=== PATIENT | female | born 1995 | race Caucasian/White ===

== ENCOUNTER → 2020-10-30 18:04 | Outpatient (CLI) | payer MEDICAID, SELFPAY ==
[2020-10-30 18:18] LABS: Basophils # 0.1 K/mm3 (0-0.2); Basophils % 0.7 % (0.1-2.0); Eosinophils # 0.2 K/mm3 (0.0-0.4); Eosinophils % 1.7 % (0.1-12.0); Hematocrit 41.2 % (37.0-47.0); Lymphocytes # 2.8 K/mm3 (0.7-4.5); Lymphocytes % 28.6 % (10-50); Mean Corpuscular HGB Conc 33.9 g/dL (31.8-35.4); Mean Corpuscular Hemoglobin 27.7 pg (27.0-31.2); Mean Corpuscular Volume 81.5 fl (81-99); Mean Platelet Volume 9.6 fl (7.4-10.4); Monocytes # 0.7 K/mm3 (0.1-1.0); Monocytes % 6.6 % (1.7-9.3); Neutrophils # 6.1 K/mm3 (1.8-7.8); Neutrophils % 62.5 % (37.0-80.0); Platelet Count 285 K/mm3 (142-424); Red Blood Count 5.06 M/mm3 (4.20-5.40); Red Cell Distribution Width 14.3 % (11.5-17.5); White Blood Count 9.8 K/mm3 (4.8-10.8)
== END ==
PROVIDERS: Visit Provider Obstetrics & Gynecology
DX: N92.6 Irregular menstruation, unspecified (principal)
CPT/HCPCS: 36415; 85025

== ENCOUNTER 2021-06-21 02:26 | Emergency (ER) | payer BC, MEDICAID, SELFPAY ==
[2021-06-21 02:35] VITALS: BP 203/106; PULSE 120; O2SAT 99
[2021-06-21 02:38] VITALS: BP 203/106; PULSE 120; RESP 18; TEMP 36.6; O2SAT 99; BMI 44.9
--- NOTE | 2021-06-21 02:45 | CT_ITS ---
PROCEDURE INFORMATION: Exam: CT Abdomen And Pelvis Without Contrast Exam date and time: 06/21/2021 3:22 AM Age: 26 years old Clinical indication: Abdominal pain; Flank; Right; Additional info: Back pain TECHNIQUE: Imaging protocol: Computed tomography of the abdomen and pelvis without contrast. Radiation optimization: All CT scans at this facility use at least one of these dose optimization techniques: automated exposure control; mA and/or kV adjustment per patient size (includes targeted exams where dose is matched to clinical indication); or iterative reconstruction. COMPARISON: No relevant prior studies available. FINDINGS: Liver: The liver is mildly low in density. Gallbladder and bile ducts: Normal. No calcified stones. No ductal dilation. Pancreas: Normal. No ductal dilation. Spleen: Normal. No splenomegaly. Adrenal glands: Normal. No mass. Kidneys and ureters: Normal. No hydronephrosis. Stomach and bowel: Unremarkable. No obstruction. No mucosal thickening. Appendix: The appendix is normal. Intraperitoneal space: Unremarkable. No free air. No significant fluid collection. Vasculature: Unremarkable. No abdominal aortic aneurysm. Lymph nodes: A cluster of small minimally prominent lymph nodes are seen in the right lower quadrant mesentery. Urinary bladder: Unremarkable as visualized. Reproductive: Unremarkable as visualized. Bones/joints: Unremarkable. No acute fracture. Soft tissues: Unremarkable. IMPRESSION: 1. Cluster of mildly prominent right lower quadrant mesenteric lymph nodes consistent with probable mesenteric lymphadenitis. No evidence of appendicitis. 2. Mild diffuse hepatic steatosis.
[2021-06-21 02:55] LABS: Microscopic, Urine URINE MICROSCOPIC (MICROSCOPIC)
[2021-06-21 02:57] LABS: Basophils # 0.2 K/mm3 (0-0.2); Basophils % 1.3 % (0.1-2.0); Eosinophils # 0.2 K/mm3 (0.0-0.4); Eosinophils % 1.1 % (0.1-12.0); Hemoglobin 13.9 g/dL (12.2-16.2); Lymphocytes % 22.1 % (10-50); Mean Corpuscular Hemoglobin 26.9 pg (27.0-31.2); Mean Corpuscular Volume 81.5 fl (81-99); Mean Platelet Volume 10.6 fl (7.4-10.4); Monocytes # 0.7 K/mm3 (0.1-1.0); Monocytes % 5.3 % (1.7-9.3); Neutrophils # 9.7 K/mm3 (1.8-7.8); Neutrophils % 70.2 % (37.0-80.0); Platelet Count 349 K/mm3 (142-424); Red Blood Count 5.16 M/mm3 (4.20-5.40); Red Cell Distribution Width 16.2 % (11.5-17.5); White Blood Count 13.8 K/mm3 (4.8-10.8)
[2021-06-21 03:01] VITALS: BP 134/68; PULSE 50; O2SAT 95
[2021-06-21 03:13] LABS: Alanine Aminotransferase 37 U/L (12-78); Albumin Level 4.9 g/dl (3.5-5.0); Albumin/Globulin Ratio 1.3 (1.1-1.8); Alkaline Phosphatase 97 U/L (38-126); Amylase 60 U/L (30-110); Aspartate Amino Transferase 32 U/L (14-36); Bilirubin,Total 0.4 mg/dl (0.2-1.3); Blood Urea Nitrogen 16 mg/dl (7-17); Calcium 9.4 mg/dl (8.4-10.2); Carbon Dioxide 23 mmol/L (22.0-30.0); Chloride 106 mmol/L (98-107); Creatinine Clearance Estimated 125 mL/min (50-200); Estimated Glomerular Filt Rate 152 ml/min (>60); GFR (African American) 183 ML/MIN (>60); Globulin 3.7 g/dL (1.3-3.2); Glucose 128 mg/dl (74-100); Sodium 140 mmol/L (136-145); Total Protein,Serum 8.6 g/dl (6.3-8.2)
[2021-06-21 03:18] LABS: Appearance,Urine CLEAR (Clear); Bilirubin,Urine Negative (Negative); Blood, Urine 3+ (Negative); Color,Urine YELLOW (Yellow); Glucose,Urine (UA) Negative (Negative); Ketones,Urine Negative (Negative); Leukocyte Esterase,Urine Negative (Negative); Nitrate,Urine Negative (Negative); Protein,Urine Negative (Negative); Specific Gravity, Urine >= 1.030 (1.005-1.030); Urobilinogen,Urine 0.2 EU/dl (0.2)
[2021-06-21 03:19] LABS: C-Reactive Protein 4.4 mg/L (0-4)
[2021-06-21 03:21] LABS: Urine Pregnancy, HCG Qual. Negative (Negative)
[2021-06-21 03:31] VITALS: BP 170/77; PULSE 90; O2SAT 100
[2021-06-21 03:32] LABS: Procalcitonin 0.035 ng/mL (0.0-2.0)
--- NOTE | 2021-06-21 03:44 | HMH.EDGENADL ---
ED Disposition Clinical Impression: Flank pain, acute Hematuria Qualifiers: Hematuria type: unspecified type Qualified Code(s): R31.9 - Hematuria, unspecified Disposition: Home, Self-Care Condition on Discharge: Good Instructions: DI for Flank Pain Additional Instructions: fluids and call pcp for follow up Referrals: Provider,Referral, MD [Primary Care Provider] - - Critical Care Critical Care Time: No Attestation: On 06/21/21, the high probability of a clinically significant, sudden or life threatening deterioration of the following system(s) required my full and direct attention, intervention and personal management. The time I documented below is in addition to time spent performing reported procedures but includes the following listed in this critical care notation. Medical Decision Making - Medical Records Medical records reviewed: Yes: I reviewed the patient's medical records. - Yvan Inquiry Pt receiving controlled substance: No Vital Signs: 06/21/21 02:35 06/21/21 02:38 06/21/21 03:01 Temperature 97.9 F Temperature Source Oral Pulse Rate 120 H 50 L Pulse Rate [Apical] 120 H Respiratory Rate 18 Blood Pressure 203/106 H 134/68 Blood Pressure [Right Arm] 203/106 H Blood Pressure Mean [Right Arm] 138 Blood Pressure Source [Right Arm] Automatic Cuff Blood Pressure Position [Right Arm] Sitting 02 Sat by Pulse Oximetry 99 99 95 Oxygen Delivery Method Room Air Room Air Room Air 06/21/21 03:31 Temperature Temperature Source Pulse Rate 90 Pulse Rate [Apical] Respiratory Rate Blood Pressure 170/77 H Blood Pressure [Right Arm] Blood Pressure Mean [Right Arm] Blood Pressure Source [Right Arm] Blood Pressure Position [Right Arm] 02 Sat by Pulse Oximetry 100 Oxygen Delivery Method - Lab Data Lab results reviewed: Yes: I reviewed the patient's lab results. Lab Results 06/21/21 02:37: Urine Color Yellow, Urine Appearance Clear, Urine pH 6.0, Ur Specific [place] >= 1.030, Urine Protein Negative, Urine Glucose (UA) Negative, Urine Ketones Negative, Urine Blood 3+, Urine Nitrate Negative, Urine Bilirubin Negative, Urine Urobilinogen 0.2, Ur Leukocyte Esterase Negative, Urine RBC 5-10, Ur Squamous Epith Cells 10-20 06/21/21 02:37: WBC 13.8 H, RBC 5.16, Hgb 13.9, Hct 42.0, MCV 81.5, MCH 26.9 L, MCHC 33.0, RDW 16.2, Plt Count 349, MPV 10.6 H, Neut % (Auto) 70.2, Lymph % (Auto) 22.1, [place] % (Auto) 5.3, Eos % (Auto) 1.1, Baso % (Auto) 1.3, Neut # (Auto) 9.7 H, Lymph # (Auto) 3.0, [place] # (Auto) 0.7, Eos # (Auto) 0.2, Baso # (Auto) 0.2, ESR 21 H 06/21/21 02:37: Sodium 140, Potassium 4.0, Chloride 106, Carbon Dioxide 23, Anion Gap 15.0, BUN 16, Creatinine 0.50 L, Estimated Creat Clear 125, Estimated GFR 152, Est GFR ( Amer) 183, Glucose 128 H, Calcium 9.4, Total Bilirubin 0.4, AST 32, ALT 37, Alkaline Phosphatase 97, C-Reactive Protein 4.4 H, Total Protein 8.6 H, Albumin 4.9, Globulin 3.7 H, Albumin/Globulin Ratio 1.3, Amylase 60, Procalcitonin 0.035 06/21/21 02:37: Urine HCG, Qual Negative Result diagrams: 06/21/21 02:37 06/21/21 02:37 Orders (Tests/Meds): ED MEDICATIONS Generic Name Dose Route Start Last Admin Trade Name Freq PRN Reason Stop Dose Admin Sodium Chloride 1,000 mls @ 999 mls/hr 06/21/21 02:45 06/21/21 03:07 Sod Chlor 0.9% 1000ml Bag IV 06/21/21 03:45 999 mls/hr .Q1H1M ADELE Administration Discontinued Medications Generic Name Dose Route Start Last Admin Trade Name Freq PRN Reason Stop Dose Admin Ketorolac Tromethamine 30 mg 06/21/21 02:44 06/21/21 03:07 Ketorolac 30mg/Ml Vial IV 06/21/21 02:45 30 mg ONCE ONE Administration Ondansetron HCl 4 mg 06/21/21 02:44 06/21/21 03:07 Ondansetron 4mg/2ml Vial IV 06/21/21 02:45 4 mg ONCE ONE Administration - CT Data CT Scan: Abdomen, Pelvis Time Received: 04:[address] Reviewed: Yes: I have viewed the radiologist's interpretation Preliminary Findings: Abnormal Medi
[2021-06-21 03:52] LABS: Erythrocyte Sedimentation Rate 21 mm/hr (0-20)
[2021-06-21 04:36] VITALS: BP 144/88; PULSE 83; RESP 18; TEMP 36.8; O2SAT 99
[2021-06-21 04:42] VITALS: BP 144/88; PULSE 82; RESP 18; TEMP 36.7; O2SAT 99
== END 2021-06-21 04:51 | disposition home or self-care (01) ==
PROVIDERS: Emergency Provider Emergency Medicine
DX: R31.9 Hematuria, unspecified (principal); R10.31 Right lower quadrant pain
CPT/HCPCS: 74176; 80053; 81001; 81025; 82150; 84145; 85025; 85651; 86140; 96365; 96375; 99284; J2405

== ENCOUNTER → 2021-07-02 16:22 | Outpatient (CLI) | payer BC, MEDICAID, SELFPAY ==
[2021-07-02 17:01] LABS: Basophils # 0.2 K/mm3 (0-0.2); Basophils % 1.7 % (0.1-2.0); Eosinophils # 0.2 K/mm3 (0.0-0.4); Eosinophils % 1.4 % (0.1-12.0); Hematocrit 42.4 % (37.0-47.0); Hemoglobin 14.4 g/dL (12.2-16.2); Lymphocytes # 2.7 K/mm3 (0.7-4.5); Lymphocytes % 23.8 % (10-50); Mean Corpuscular Hemoglobin 27.3 pg (27.0-31.2); Mean Corpuscular Volume 80.4 fl (81-99); Mean Platelet Volume 9.6 fl (7.4-10.4); Monocytes # 0.5 K/mm3 (0.1-1.0); Monocytes % 4.8 % (1.7-9.3); Neutrophils # 7.7 K/mm3 (1.8-7.8); Neutrophils % 68.4 % (37.0-80.0); Platelet Count 364 K/mm3 (142-424); Red Blood Count 5.28 M/mm3 (4.20-5.40); Red Cell Distribution Width 15.8 % (11.5-17.5); White Blood Count 11.2 K/mm3 (4.8-10.8)
[2021-07-02 17:37] LABS: Alanine Aminotransferase 40 U/L (12-78); Albumin Level 4.7 g/dl (3.5-5.0); Albumin/Globulin Ratio 1.6 (1.1-1.8); Alkaline Phosphatase 93 U/L (38-126); Anion Gap 16.1 mEq/L (5-15); Aspartate Amino Transferase 36 U/L (14-36); Bilirubin,Total 0.5 mg/dl (0.2-1.3); Blood Urea Nitrogen 10 mg/dl (7-17); Calcium 9.4 mg/dl (8.4-10.2); Carbon Dioxide 21 mmol/L (22.0-30.0); Chloride 105 mmol/L (98-107); Chol/HDL Ratio 6.8 (1-3.5); Cholesterol 211 mg/dl (140-200); Estimated Glomerular Filt Rate 196 ml/min (>60); GFR (African American) 237 ML/MIN (>60); Glucose 89 mg/dl (74-100); HDL Cholesterol 31 mg/dl (40-60); Potassium 4.1 mmoL/L (3.5-5.1); Sodium 138 mmol/L (136-145); Total Protein,Serum 7.7 g/dl (6.3-8.2); Triglycerides 145 mg/dl (30-150); VLDL Cholesterol 29 mg/dL (0-40)
[2021-07-02 18:08] LABS: Thyroid Stimulating Hormone 2.98 uIU/mL (0.465-4.68)
[2021-07-02 18:26] LABS: Vitamin B12 492 pg/mL (239-931)
[2021-07-02 18:50] LABS: 25-OH Vitamin D, Total 19.8 ng/mL (30-100)
== END ==
PROVIDERS: PCP Physician Assistant; Visit Provider Physician Assistant
DX: Z00.00 Encounter for general adult medical examination without abnormal findings (principal); R73.09 Other abnormal glucose
CPT/HCPCS: 36415; 80053; 80061; 82306; 82607; 83036; 84443; 85025

== ENCOUNTER 2021-08-18 19:03 | Emergency (ER) | payer BC, MEDICAID, SELFPAY ==
[2021-08-18 19:04] VITALS: BP 146/62; PULSE 122; RESP 28; TEMP 36.9; O2SAT 100; BMI 42.0
[2021-08-18 19:48] LABS: Microscopic, Urine URINE MICROSCOPIC (MICROSCOPIC)
[2021-08-18 19:48] LABS: Basophils # 0.1 K/mm3 (0-0.2); Basophils % 1.1 % (0.1-2.0); Eosinophils # 0.2 K/mm3 (0.0-0.4); Eosinophils % 1.9 % (0.1-12.0); Hematocrit 41.2 % (37.0-47.0); Hemoglobin 14.3 g/dL (12.2-16.2); Lymphocytes # 0.8 K/mm3 (0.7-4.5); Lymphocytes % 7.4 % (10-50); Mean Corpuscular HGB Conc 34.6 g/dL (31.8-35.4); Mean Corpuscular Hemoglobin 27.8 pg (27.0-31.2); Mean Corpuscular Volume 80.4 fl (81-99); Mean Platelet Volume 9.9 fl (7.4-10.4); Monocytes # 0.7 K/mm3 (0.1-1.0); Neutrophils # 9.2 K/mm3 (1.8-7.8); Neutrophils % 83.6 % (37.0-80.0); Platelet Count 334 K/mm3 (142-424); Red Blood Count 5.13 M/mm3 (4.20-5.40); Red Cell Distribution Width 15.1 % (11.5-17.5); White Blood Count 11.1 K/mm3 (4.8-10.8)
[2021-08-18 20:00] VITALS: BP 96/45; PULSE 62; RESP 18; TEMP 36.9; O2SAT 100
[2021-08-18 20:11] LABS: Appearance,Urine CLEAR (Clear); Bilirubin,Urine Negative (Negative); Blood, Urine Negative (Negative); Color,Urine YELLOW (Yellow); Glucose,Urine (UA) Negative (Negative); Ketones,Urine Negative (Negative); Leukocyte Esterase,Urine Negative (Negative); Nitrate,Urine Negative (Negative); PH,Urine 8.5 (5.0-8.5); Protein,Urine Negative (Negative); Specific Gravity, Urine 1.015 (1.005-1.030); Urobilinogen,Urine 0.2 EU/dl (0.2)
[2021-08-18 20:12] LABS: Urine Pregnancy, HCG Qual. Negative (Negative)
--- NOTE | 2021-08-18 20:30 | HMH.EDSYNC ---
ED Disposition Clinical Impression: Vasovagal syncope Disposition: Home, Self-Care Condition on Discharge: Good Instructions: DI for Syncope in Adults (Fainting) Additional Instructions: fluids and call pcp in am Referrals: Taylor Olson PA [Primary Care Provider] - - Critical Care Critical Care Time: No Attestation: On 08/18/21, the high probability of a clinically significant, sudden or life threatening deterioration of the following system(s) required my full and direct attention, intervention and personal management. The time I documented below is in addition to time spent performing reported procedures but includes the following listed in this critical care notation. Medical Decision Making - Medical Records Medical records reviewed: Yes: I reviewed the patient's medical records. - Yvan Inquiry Pt receiving controlled substance: No Vital Signs: 08/18/21 19:04 Temperature 98.5 F Temperature Source Oral Pulse Rate [Left Radial] 122 H Respiratory Rate 28 H Blood Pressure [Right Arm] 146/62 H Blood Pressure Mean [Right Arm] 90 Blood Pressure Source [Right Arm] Automatic Cuff Blood Pressure Position [Right Arm] Sitting 02 Sat by Pulse Oximetry 100 Oxygen Delivery Method Room Air - Lab Data Lab results reviewed: Yes: I reviewed the patient's lab results. Lab Results 08/18/21 19:32: WBC 11.1 H, RBC 5.13, Hgb 14.3, Hct 41.2, MCV 80.4 L, MCH 27.8, MCHC 34.6, RDW 15.1, Plt Count 334, MPV 9.9, Neut % (Auto) 83.6 H, Lymph % (Auto) 7.4 L, [place] % (Auto) 6.0, Eos % (Auto) 1.9, Baso % (Auto) 1.1, Neut # (Auto) 9.2 H, Lymph # (Auto) 0.8, [place] # (Auto) 0.7, Eos # (Auto) 0.2, Baso # (Auto) 0.1 08/18/21 19:32: Sodium 137, Potassium 3.7, Chloride 102, Carbon Dioxide 21 L, Anion Gap 17.7 H, BUN 12, Creatinine 0.60, Estimated Creat Clear 104, Estimated GFR 123, Est GFR ( Amer) 149, Glucose 109 H, Calcium 10.1, Total Bilirubin 0.6, AST 43 H, ALT 45, Alkaline Phosphatase 84, Total Protein 8.2, Albumin 4.7, Globulin 3.5 H, Albumin/Globulin Ratio 1.3 08/18/21 19:40: Urine Color Yellow, Urine Appearance Clear, Urine pH 8.5, Ur Specific [place] 1.015, Urine Protein Negative, Urine Glucose (UA) Negative, Urine Ketones Negative, Urine Blood Negative, Urine Nitrate Negative, Urine Bilirubin Negative, Urine Urobilinogen 0.2, Ur Leukocyte Esterase Negative, Urine WBC 3-5, Ur Squamous Epith Cells 10-20, Urine Bacteria 1+ 08/18/21 19:40: Urine HCG, Qual Negative Result diagrams: 08/18/21 19:32 08/18/21 19:32 Orders (Tests/Meds): ED MEDICATIONS Generic Name Dose Route Start Last Admin Trade Name Freq PRN Reason Stop Dose Admin Sodium Chloride 1,000 mls @ 999 mls/hr 08/18/21 19:45 08/18/21 19:42 Sod Chlor 0.9% 1000ml Bag IV 08/18/21 20:45 999 mls/hr .Q1H1M ADELE Administration Discontinued Medications Generic Name Dose Route Start Last Admin Trade Name Freq PRN Reason Stop Dose Admin Acetaminophen 1,000 mg 08/18/21 19:47 08/18/21 19:48 Acetaminophen 500mg Tab PO 08/18/21 19:48 1,000 mg ONCE ONE Administration Medical Decision Narrative: stable exam and vital sx and labs ok - prob vasovagal episode - have pt call pcp in am Syncope HPI - General Chief Complaint: Syncope Stated Complaint: sob nUMBNESS lEFT ARM Time Seen by Provider: 08/18/21 20:31 Mode of Arrival: Ambulatory Source of Information: Patient, Medical Record Limitations: No Limitations Description of Symptoms (Recalled from ER Triage Doc. by RN): PT HAS NOT BEEN ABLE TO EAT OR DRINK AT WORK TODAY. HAD NAUSEA THEN A SYNCOPAL EPISODE. PT NOW HAVING AN ANXIETY ATTACK. - History of Present Illness HPI narrative: nausea and episode of vomiting and then syncopal episode and lt upper ext tingling - now at baseline MD complaint: loss of consciousness Onset (ago): minute(s) Prodromal symptoms: nausea/vomiting Witnessed: yes - by bystander Context: standing up Injuries sustained associated with event: none
[2021-08-18 20:39] LABS: Bacteria,Urine 1+ /lpf
[2021-08-18 20:41] LABS: Chloride 102 mmol/L (98-107); Potassium 3.7 mmoL/L (3.5-5.1); Sodium 137 mmol/L (136-145)
[2021-08-18 20:44] LABS: Alanine Aminotransferase 45 U/L (12-78); Albumin Level 4.7 g/dl (3.5-5.0); Albumin/Globulin Ratio 1.3 (1.1-1.8); Alkaline Phosphatase 84 U/L (38-126); Anion Gap 17.7 mEq/L (5-15); Aspartate Amino Transferase 43 U/L (14-36); Bilirubin,Total 0.6 mg/dl (0.2-1.3); Blood Urea Nitrogen 12 mg/dl (7-17); Carbon Dioxide 21 mmol/L (22.0-30.0); Creatinine Clearance Estimated 104 mL/min (50-200); Estimated Glomerular Filt Rate 123 ml/min (>60); GFR (African American) 149 ML/MIN (>60); Globulin 3.5 g/dL (1.3-3.2); Total Protein,Serum 8.2 g/dl (6.3-8.2)
[2021-08-18 20:45] LABS: Calcium 10.1 mg/dl (8.4-10.2); Glucose 109 mg/dl (74-100)
[2021-08-18 20:58] VITALS: BP 90/57; PULSE 87; RESP 18; TEMP 30.5; O2SAT 100
== END 2021-08-18 21:03 | disposition home or self-care (01) ==
PROVIDERS: Emergency Provider Emergency Medicine; PCP Physician Assistant
DX: R55 Syncope and collapse (principal); R20.2 Paresthesia of skin; R11.2 Nausea with vomiting, unspecified; E06.9 Thyroiditis, unspecified; F32.A Depression, unspecified; F41.9 Anxiety disorder, unspecified; Z80.9 Family history of malignant neoplasm, unspecified; Z83.438 Family history of other disorder of lipoprotein metabolism and other lipidemia; Z88.3 Allergy status to other anti-infective agents; Z82.5 Family history of asthma and other chronic lower respiratory diseases; Z80.8 Family history of malignant neoplasm of other organs or systems
CPT/HCPCS: 80053; 81001; 81025; 85025; 99283

== ENCOUNTER 2022-01-25 07:49 | Emergency (ER) | payer BC, SELFPAY ==
--- NOTE | 2022-01-25 07:56 | PC.NURSE ---
dr. jamil at bedside for evaluation
[2022-01-25 08:00] VITALS: BP 144/91; PULSE 100; RESP 20; TEMP 36.7; O2SAT 100; BMI 43.0
[2022-01-25 08:04] LABS: Microscopic, Urine URINE MICROSCOPIC (MICROSCOPIC)
[2022-01-25 08:05] LABS: Appearance,Urine CLOUDY (Clear); Bilirubin,Urine Negative (Negative); Blood, Urine 3+ (Negative); Color,Urine YELLOW (Yellow); Glucose,Urine (UA) Negative (Negative); Ketones,Urine Negative (Negative); Leukocyte Esterase,Urine 2+ (Negative); Nitrate,Urine POSITIVE (Negative); Protein,Urine 1+ (Negative); Urobilinogen,Urine 0.2 EU/dl (0.2)
[2022-01-25 08:07] LABS: Urine Pregnancy, HCG Qual. Negative (Negative)
[2022-01-25 08:15] LABS: Basophils # 0.2 K/mm3 (0-0.2); Basophils % 1.7 % (0.1-2.0); Eosinophils # 0.2 K/mm3 (0.0-0.4); Eosinophils % 1.9 % (0.1-12.0); Hematocrit 44.7 % (37.0-47.0); Hemoglobin 14.8 g/dL (12.2-16.2); Lymphocytes # 3.4 K/mm3 (0.7-4.5); Lymphocytes % 29.4 % (10-50); Mean Corpuscular HGB Conc 33.1 g/dL (31.8-35.4); Mean Corpuscular Hemoglobin 27.8 pg (27.0-31.2); Mean Platelet Volume 9.8 fl (7.4-10.4); Monocytes # 0.7 K/mm3 (0.1-1.0); Monocytes % 6.1 % (1.7-9.3); Neutrophils % 60.9 % (37.0-80.0); Platelet Count 327 K/mm3 (142-424); Red Blood Count 5.33 M/mm3 (4.20-5.40); Red Cell Distribution Width 14.7 % (11.5-17.5); White Blood Count 11.5 K/mm3 (4.8-10.8)
[2022-01-25 08:17] LABS: Bacteria,Urine 2+ /lpf; Squamous Epithelial Cell,Urine 20-50 #/hpf (0-5); WBC,Urine TNTC #/hpf (0-3)
[2022-01-25 08:19] LABS: Chloride 101 mmol/L (98-107); Lactic Acid 1.5 mmol/L (0.7-2.1); Potassium 3.6 mmoL/L (3.5-5.1); Sodium 142 mmol/L (136-145)
[2022-01-25 08:21] LABS: Blood Urea Nitrogen 9 mg/dl (7-17); Creatinine Clearance Estimated 104 mL/min (50-200); Estimated Glomerular Filt Rate 123 ml/min (>60); GFR (African American) 149 ML/MIN (>60)
[2022-01-25 08:22] LABS: Alanine Aminotransferase 49 U/L (12-78); Albumin Level 4.7 g/dl (3.5-5.0); Albumin/Globulin Ratio 1.4 (1.1-1.8); Alkaline Phosphatase 110 U/L (38-126); Anion Gap 17.6 mEq/L (5-15); Aspartate Amino Transferase 39 U/L (14-36); Bilirubin,Total 0.6 mg/dl (0.2-1.3); Calcium 8.7 mg/dl (8.4-10.2); Carbon Dioxide 27 mmol/L (22.0-30.0); Globulin 3.3 g/dL (1.3-3.2); Glucose 107 mg/dl (74-100)
--- NOTE | 2022-01-25 08:22 | CT_ITS ---
PROCEDURE INFORMATION: Exam: CT Abdomen And Pelvis With Contrast Exam date and time: 01/25/2022 8:47 AM Age: 26 years old Clinical indication: Abdominal pain; Flank; Left; Additional info: Flank pain TECHNIQUE: Imaging protocol: Computed tomography of the abdomen and pelvis with contrast. Radiation optimization: All CT scans at this facility use at least one of these dose optimization techniques: automated exposure control; mA and/or kV adjustment per patient size (includes targeted exams where dose is matched to clinical indication); or iterative reconstruction. Contrast material: ISOVUE; Contrast volume: 75 ml; Contrast route: IV; COMPARISON: CT ABDOMEN PELVIS WO CON 06/21/2021 3:22 AM FINDINGS: Lungs: No acute airspace or pleural disease. Liver: Fatty infiltration of the liver. Gallbladder and bile ducts: Unremarkable gallbladder. Pancreas: No pancreatic mass or ductal dilatation. Spleen: Enlarged spleen measuring 13.7 cm in length. Adrenal glands: Unremarkable adrenals. Kidneys and ureters: Normal renal morphology. Mild uroepithelial thickening in the nondilated left renal pelvis and ureter, suggesting urinary tract infection. Correlation with urinalysis is recommended. No urolithiasis. Stomach and bowel: Prominent stool. Diverticula, without pericolonic inflammation. Appendix: No acute appendicitis. Intraperitoneal space: Small quantity of high attenuation free fluid in the pelvis. Vasculature: Normal caliber of the abdominal aorta. Lymph nodes: Reactive inguinal lymph nodes. Urinary bladder: Mild bladder wall thickening. Reproductive: Follicular change in the ovaries. Bones/joints: Transitional vertebra at the lumbosacral junction. Soft tissues: Unremarkable. IMPRESSION: 1. Mild uroepithelial thickening in the nondilated left renal pelvis and ureter, suggesting urinary tract infection. Correlation with urinalysis is recommended. 2. Small quantity of high attenuation free fluid in the pelvis. 3. Additional findings as described above.
--- NOTE | 2022-01-25 08:32 | PC.NURSE ---
ROUNDED ON PT, SITTING UP IN BED TALKING WITH . REPORTS FEELING BETTER
--- NOTE | 2022-01-25 08:45 | PC.NURSE ---
checked on pt, nothing needed at this time, pt stated she felt a lot better.
--- NOTE | 2022-01-25 08:50 | PC.NURSE ---
PT TO CT AT THIS TIME VIA WC
--- NOTE | 2022-01-25 08:50 | PC.NURSE ---
pt gone to rad
--- NOTE | 2022-01-25 08:57 | HMH.EDGENADL ---
Discharge Plan Disposition Patient Disposition: Home, Self-Care Condition: Good Prescriptions Prescriptions: New cefdinir 300 mg capsule 300 mg PO BID 10 Days Qty: 20 0RF ketorolac 10 mg tablet 10 mg PO Q8H 4 Days Qty: 12 0RF ondansetron 4 mg tablet,disintegrating 4 mg PO DAILY PRN (Reason: nausea and vomiting) 4 Days Qty: 14 0RF No Action fluticasone propionate [Flonase Allergy Relief] 50 mcg/actuation spray,suspension 1 spray intranasal DAILY Qty: 16 1RF Rx Instructions: administer into each nostril ergocalciferol (vitamin D2) 1,250 mcg (50,000 unit) capsule 1,250 mcg PO WEEKLY Qty: 14 3RF escitalopram oxalate 10 mg tablet See Rx Instructions .ROUTE .COMPLEX Qty: 90 0RF Dose Instruction: Take 1 tablet by mouth once daily Rx Instructions: Take 1 tablet by mouth once daily Referrals Follow up/Referrals: Taylor Olson PA [Primary Care Provider] - See instructions Activity Restrictions/Add. Instructions Additional Instructions/Restrictions: Please follow up with your primary care physician in 2-3 days for further management. Please take antibiotic as prescribed. Please take toradol as prescribed and tylenol as needed. Please return for any worsening symptoms. Clinical Impressions Clinical Impression: UTI (urinary tract infection) Instructions Patient Instructions: DI for Urinary Tract Infection (UTI) Print Language Print Language: Nepali Discharge ED Provider: Aisha Valerio Adult HPI General Chief complaint: Urogenital-Female Stated complaint: back and side pain Time Seen by Provider: 01/25/22 09:30 Mode of Arrival: Ambulatory Source of Information: Patient Limitations: No Limitations Description of Symptoms (Recalled from ER Triage Doc. by RN): PT REPORTS BURNING WITH URINATION, LEFT FLANK PAIN SINCE WEDNESDAY History of Present Illness HPI narrative: Mrs. Wasserman is a 26-year-old female past medical history for recurrent urinary tract infections presenting to the emergency department for severe left-sided flank pain which started . Patient also reports dysuria described as burning with urination. She denies any nausea or vomiting. No recent trauma to the abdomen. Normal bowel movements. No fevers or other systemic signs of infection. MD complaint: Flank pain Onset (ago): day(s) Location: abdomen Radiation: flank Severity: severe Quality: sharp Consistency: constant Relieving factors: none Exacerbating factors: none Associated symptoms: denies other symptoms Treatments prior to arrival: none Related Data Previous Rx's Medication Instructions Recorded ergocalciferol (vitamin D2) 1,250 1,250 mcg PO WEEKLY #14 caps 07/03/21 mcg (50,000 unit) capsule fluticasone propionate 50 1 spray intranasal DAILY #16 grams 12/16/21 mcg/actuation nasal spray,suspension (Flonase Allergy Relief) escitalopram oxalate 10 mg tablet See Rx Instructions .Route 01/22/22 .COMPLEX #90 tabs cefdinir 300 mg capsule 300 mg PO BID 10 days #20 caps 01/25/22 ketorolac 10 mg tablet 10 mg PO Q8H 4 days #12 tabs 01/25/22 ondansetron 4 mg disintegrating 4 mg PO DAILY PRN nausea and 01/25/22 tablet vomiting 4 days #14 tabs Allergies Allergy/AdvReac Type Severity Reaction Status Date / Time bee venom protein (honey bee) Allergy Verified 12/16/21 08:25 [facility] Medical History Anxiety and depression Family history of thyroid cancer Hypothyroidism Numbness and tingling of both feet Serous otitis media Family History Other No significant family history Social History Smoking Status: Never smoker alcohol intake: never current occupational status: unemployed Travel in the last 8 weeks: None ROS Obtained: Yes All systems reviewed & no additional complaints except as docume
--- NOTE | 2022-01-25 08:58 | PC.NURSE ---
pt back from rad
--- NOTE | 2022-01-25 09:18 | PC.NURSE ---
ROUNDED ON PT AT THIS TIME. NO NEEDS VOICED. CALL LIGHT WITHIN REACH
[2022-01-25 09:54] VITALS: BP 129/84; PULSE 73; RESP 18; TEMP 36.7; O2SAT 100
== END 2022-01-25 09:56 | disposition home or self-care (01) ==
PROVIDERS: Emergency Provider Student in an Organized Health Care Education/Training Program; PCP Physician Assistant
DX: N39.0 Urinary tract infection, site not specified (principal); Z79.899 Other long term (current) drug therapy; F41.9 Anxiety disorder, unspecified; F32.A Depression, unspecified; E03.9 Hypothyroidism, unspecified
CPT/HCPCS: 74177; 80053; 81001; 81025; 83605; 85025; 87086; 87088; 87186; 96365; 96375; 99284; Q9967

== ENCOUNTER → 2022-04-15 11:30 | Outpatient (CLI) | payer BC, SELFPAY ==
[2022-04-15 15:31] LABS: Basophils # 0.1 K/mm3 (0-0.2); Eosinophils # 0.1 K/mm3 (0.0-0.4); Eosinophils % 1.3 % (0.1-12.0); Hematocrit 42.3 % (37.0-47.0); Hemoglobin 13.3 g/dL (12.2-16.2); Lymphocytes # 2.6 K/mm3 (0.7-4.5); Lymphocytes % 25.8 % (10-50); Mean Corpuscular HGB Conc 31.4 g/dL (31.8-35.4); Mean Corpuscular Hemoglobin 26.7 pg (27.0-31.2); Mean Corpuscular Volume 85.1 fl (81-99); Mean Platelet Volume 10.5 fl (7.4-10.4); Monocytes # 0.7 K/mm3 (0.1-1.0); Neutrophils # 6.4 K/mm3 (1.8-7.8); Neutrophils % 64.7 % (37.0-80.0); Platelet Count 384 K/mm3 (142-424); Red Blood Count 4.97 M/mm3 (4.20-5.40); Red Cell Distribution Width 14.9 % (11.5-17.5); White Blood Count 9.9 K/mm3 (4.8-10.8)
[2022-04-15 15:47] LABS: Alanine Aminotransferase 41 U/L (12-78); Albumin Level 4.9 g/dl (3.5-5.0); Albumin/Globulin Ratio 1.6 (1.1-1.8); Alkaline Phosphatase 97 U/L (38-126); Anion Gap 17.4 mEq/L (5-15); Aspartate Amino Transferase 38 U/L (14-36); Bilirubin,Total 0.5 mg/dl (0.2-1.3); Blood Urea Nitrogen 16 mg/dl (7-17); Carbon Dioxide 25 mmol/L (22.0-30.0); Chloride 103 mmol/L (98-107); Chol/HDL Ratio 7.2 (1-3.5); Cholesterol 208 mg/dl (140-200); Estimated Glomerular Filt Rate 122 ml/min (>60); GFR (African American) 147 ML/MIN (>60); Glucose 88 mg/dl (74-100); HDL Cholesterol 29 mg/dl (40-60); Potassium 4.4 mmoL/L (3.5-5.1); Sodium 141 mmol/L (136-145); Total Protein,Serum 7.9 g/dl (6.3-8.2); Triglycerides 181 mg/dl (30-150); VLDL Cholesterol 36 mg/dL (0-40)
[2022-04-15 15:57] LABS: Hemoglobin A1C 4.8 % (4.0-6.0)
[2022-04-15 15:58] LABS: Direct LDL Cholesterol 132.84 mg/dL (100-129)
[2022-04-15 16:04] LABS: 25-OH Vitamin D, Total 16.2 ng/mL (30-100)
[2022-04-15 16:18] LABS: Thyroid Stimulating Hormone 3.57 uIU/mL (0.465-4.68)
[2022-04-15 16:20] LABS: Creatinine,Urine Random 147 mg/dL (Not Estab.); Microalbumin/Creatinine Ratio 8.8
[2022-04-15 16:37] LABS: Vitamin B12 477 pg/mL (239-931)
== END ==
PROVIDERS: PCP Physician Assistant; Visit Provider Physician Assistant
DX: R81 Glycosuria (principal); E55.9 Vitamin D deficiency, unspecified
CPT/HCPCS: 80053; 80061; 82043; 82306; 82570; 82607; 83036; 84443; 85025

== ENCOUNTER 2022-06-03 01:21 | Emergency (ER) | payer BC, SELFPAY ==
[2022-06-03 01:22] VITALS: BP 136/74; PULSE 94; RESP 16; TEMP 36.8; O2SAT 100; BMI 42.0
[2022-06-03 02:01] VITALS: BP 135/77; PULSE 98; O2SAT 100
--- NOTE | 2022-06-03 02:12 | HMH.EDEAR ---
Discharge Plan Disposition Patient Disposition: Home, Self-Care Prescriptions Prescriptions: New azithromycin [azithromycin] 250 mg tablet 250 mg PO DIRECTED Qty: 6 0RF Rx Instructions: Take two (2) tablets on day #1, then one (1) tablet day #2 thru #5 prednisone [prednisone] 20 mg tablet 20 mg PO BID Qty: 10 0RF No Action clindamycin HCl 300 mg capsule 300 mg PO cephalexin 500 mg capsule 500 mg PO metronidazole 500 mg tablet 500 mg PO Label Comments: TAKE 1 TABLET BY MOUTH TWICE DAILY fluconazole 150 mg tablet 150 mg PO Label Comments: TAKE 1 TABLET BY MOUTH TODAY, 1 TABLET IN 3 DAYS, AND 1 TABLET IN 7 DAYS phenazopyridine 100 mg tablet 100 mg PO TID Label Comments: TAKE 1 TO 2 TABLETS BY MOUTH THREE TIMES DAILY NEEDED FOR BLADDER SPASMS ergocalciferol (vitamin D2) 1,250 mcg (50,000 unit) capsule 1,250 mcg PO escitalopram oxalate [Lexapro] 20 mg tablet 20 mg PO QDAY Qty: 90 0RF fluticasone propionate [Flonase Allergy Relief] 50 mcg/actuation spray,suspension 1 spray intranasal DAILY Qty: 16 1RF Rx Instructions: administer into each nostril Wegovy 0.25 mg/0.5 mL pen injector See Rx Instructions .ROUTE .COMPLEX Qty: 4 0RF Dose Instruction: INJECT 0.25MG SUBCUTANEOUSLY ADMINISTER WEEKS 1-4 OF THERAPY Rx Instructions: INJECT 0.25MG SUBCUTANEOUSLY ADMINISTER WEEKS 1-4 OF THERAPY Referrals Follow up/Referrals: Taylor Olson PA [Primary Care Provider] - See instructions Clinical Impressions Clinical Impression: Otitis media Instructions Patient Instructions: DI for Ear Pain-Adult Discharge ED Provider: Larisa (ED)Jayy Ear [facility] General Chief complaint: Ear Stated complaint: ear pain Time Seen by Provider: 06/03/22 02:12 Mode of Arrival: Ambulatory Source of Information: Medical Record Limitations: No Limitations Description of Symptoms (Recalled from ER Triage Doc. by RN): pt advises she was seen on 05/25 at [facility] [place] and given antibiotics and steroids for a bilateral ear infection. Pt advises she finished her full course of medications and now the right ear is still hurting and the left ear has gotten progressively worse. Pt advises it feels like it is going to burst and she has had some minor yellowish discharge from the ear. Advises she made a follow up appt with ENT but is not able to be seen until July History of Present Illness HPI Narrative: pt with recent ear infection and finished abx and steroids and has lt sided pain MD Complaint: ear pain Location: left ear Duration: intermittent Severity: moderate Discharge from ear: no Related Data Home Medications Medication Instructions Recorded Confirmed cephalexin 500 mg capsule 500 mg PO 04/15/22 04/15/22 clindamycin HCl 300 mg capsule 300 mg PO 04/15/22 04/15/22 ergocalciferol (vitamin D2) 1,250 1,250 mcg PO 04/15/22 04/15/22 mcg (50,000 unit) capsule fluconazole 150 mg tablet 150 mg PO 04/15/22 04/15/22 metronidazole 500 mg tablet 500 mg PO 04/15/22 04/15/22 phenazopyridine 100 mg tablet 100 mg PO TID 04/15/22 04/15/22 Previous Rx's Medication Instructions Recorded fluticasone propionate 50 1 spray intranasal DAILY #16 grams 12/16/21 mcg/actuation nasal spray,suspension (Flonase Allergy Relief) escitalopram oxalate 20 mg tablet 20 mg PO QDAY #90 tabs 04/15/22 (Lexapro) semaglutide (weight loss) 0.25 See Rx Instructions .Route 05/12/22 mg/0.5 mL subcutaneous pen .COMPLEX #4 mL injector (Wegovy) azithromycin 250 mg tablet 250 mg PO DIRECTED #6 tabs 06/03/22 prednisone 20 mg tablet 20 mg PO BID #10 tabs 06/03/22 Allergies Allergy/AdvReac Type Severity Reaction Status Date / Time bee venom protein (honey bee) Allergy Verified 06/03/22 01:44 [facility] Disclaimer: The information contained in this section may have been updated after the patient was seen, as thi
[2022-06-03 02:39] LABS: Strep Scrn Group A (Rapid) Negative (Negative)
--- NOTE | 2022-06-03 03:13 | PC.NURSE ---
Rounded on patient at this time, updated her on results. She advised she was feeling better and ready to go home.
[2022-06-03 03:26] VITALS: BP 129/76; PULSE 98; RESP 18; TEMP 37
== END 2022-06-03 03:29 | disposition home or self-care (01) ==
PROVIDERS: Emergency Provider Emergency Medicine; PCP Physician Assistant
DX: H66.93 Otitis media, unspecified, bilateral (principal); F41.8 Other specified anxiety disorders; E03.9 Hypothyroidism, unspecified; Z83.49 Family history of other endocrine, nutritional and metabolic diseases
CPT/HCPCS: 87430; 96365; 96375; 99284; J0696

== ENCOUNTER 2022-08-04 09:12 | Day surgery (SDC) | payer BC, SELFPAY ==
[2022-08-03 14:26] VITALS: BMI 41.0
[2022-08-04] VITALS (11 sets, daily range): BP systolic 127–164; BP diastolic 63–108; PULSE 82–109; RESP 12–18; TEMP 36.1–36.6; O2SAT 92–99
[2022-08-04 09:29] LABS: Urine Pregnancy, HCG Qual. Negative (Negative)
--- NOTE | 2022-08-04 11:21 | EXP.OP.NOTE ---
Date of procedure: 08/04/22 Pre-op Diagnosis:: Chronic tonsillitis Post-op Diagnosis:: Chronic tonsillitis Procedure performed:: Tonsillectomy Surgeon:: Александр Arevalo MD DIRECTOR OF EVENTS:: Sonu Ocampo Anesthesia: OBEY Estimated blood loss (mL): 0 Operative findings:: 3+ enlarged tonsils Operative note:: The patient was brought to the operating room and after adequate general anesthesia the mouth was draped in the usual sterile fashion and a McIvor mouthgag placed. Tonsillectomy was then performed in the plane defined by the tonsillar capsule and superior constrictor muscle and this was done with electrocautery to simultaneously dissected and cauterized and this was done bilaterally. Tonsillar fossa's were then infiltrated with half percent Marcaine with epinephrine and the procedure concluded. All counts correct and blood loss was minimal and patient was sent to recovery in stable condition. Condition: stable Disposition: PACU Complications:: None
--- NOTE | 2022-08-04 11:23 | P.PN_ITS ---
[facility] Disclaimer: The information contained in this section may have been updated after the patient was seen, as this information can be updated by other users. Medical History Anxiety and depression Cryptic tonsil Family history of thyroid cancer Hypothyroidism Numbness and tingling of both feet Preoperative clearance Serous otitis media Tonsil stone Surgical History History of wisdom tooth extraction, class IV edentulism Hx of breast surgery Family History Other Family history of diabetes mellitus type II Thyroid cancer Social History Smoking Status: Never smoker alcohol intake: current substance use type: denies use current occupational status: employed Travel in the last 8 weeks: None household members: spouse housing: house marital status: education level: high school service: No custodial: No caffeine: Yes special prince needs: No agree to transfusion: No do you feel safe at home: Yes victim of physical abuse: No victim of emotional abuse: No victim of sexual abuse: No would you like helpful sources: No [facility] Anesthesia Checklist Patient Identification Patient Identification: Arm Band and Verbal (Name & ) Structural Data Admitted From: Home Planned Operative Procedure/s: T&A Consent for Planned Operative Procedure(s) Verified: Yes Verified Documents: Surgical Consent NPO Status Verified Time NPO: 00:00 Chart Verification Results Verified: HCG Additional verifications Anesthesia Reactions: Yes (nausea) Hx Blood Transfusions: No Blood Transfusion Reaction: No Airway Assessment C-Spine Mobility Assessed: Yes TMJ Mobility Assessed: Yes Dentition: Good Dentition Neurological Assessment Level of Consciousness: Awake, Alert and Appropriate Anesthesia Plan Anesthesia Risk discussed: Yes ASA Class: II Anesthesia Type: General
--- NOTE | 2022-08-04 11:24 | EXP.ANES.I ---
[facility] Anesthesia Record Part I Anesthesia Record I Intake, IV Amount: 500 Estimated blood loss (mL): 20 Urine output (mL): 0 Blood Pressure: 164/107 SaO2: 97 Pulse Rate: 109 Respiratory Rate: 12 Temperature: 97.6 F Patient is:: Drowsy and Nasal O2 Stable to PACU at:: 11:23
--- NOTE | 2022-08-05 09:19 | P.PNANES_ITS ---
[facility] Anesthesia Record Part II Anesthesia Record Part II Discharge Time: 11:53 Destination: Surgical Day Care (OP Surgery) PACU nurse assessment reviewed?: Yes Patient Condition:: Good Anesthesia Complications:: None Swallowing reflex intact?: Yes Cyanosis?: No Blood Pressure: 131/69 Pulse Rate: 89 Temperature: 97.9 F Mental Status: Alert & Oriented Pain level:: 4 Nausea and/or vomitting:: None Intake, IV Amount: 0
[2022-08-05 09:20] VITALS: BP 131/69; PULSE 89; TEMP 36.6
== END 2022-08-04 12:25 | disposition home or self-care (01) ==
PROVIDERS: PCP Physician Assistant; Visit Provider Otolaryngology
PROC: (CPT 42826; principal; 2022-08-04 10:45)
DX: J35.01 Chronic tonsillitis (principal)
CPT/HCPCS: 42826; 81025; J2405

== ENCOUNTER 2022-08-07 21:37 | Emergency (ER) | payer BC, SELFPAY ==
[2022-08-07 21:38] VITALS: BP 178/80; PULSE 106; RESP 16; TEMP 36.5; O2SAT 98; BMI 43.0
[2022-08-07 22:00] VITALS: BP 154/95; PULSE 96; O2SAT 96
[2022-08-07 22:30] VITALS: BP 194/100; PULSE 90; O2SAT 95
[2022-08-07 23:00] VITALS: BP 194/89; PULSE 90; O2SAT 97
[2022-08-07 23:21] VITALS: BP 194/89; PULSE 87; RESP 16; TEMP 36.6; O2SAT 98
--- NOTE | 2022-08-08 02:16 | HMH.EDGENADL ---
Discharge Plan Disposition Patient Disposition: Home, Self-Care Prescriptions Prescriptions: No Action ergocalciferol (vitamin D2) 1,250 mcg (50,000 unit) capsule 1,250 mcg PO DAILY cholecalciferol (vitamin D3) [Vitamin D3] 25 mcg (1,000 unit) capsule 25 mcg PO WEEKLY Label Comments: TAKE 1 CAPSULE BY MOUTH ONCE DAILY fluticasone propionate [Flonase Allergy Relief] 50 mcg/actuation spray,suspension 1 spray intranasal DAILY Rx Instructions: administer into each nostril escitalopram oxalate [Lexapro] 20 mg tablet 20 mg PO QDAY promethazine 25 mg tablet 25 mg PO Q6H PRN (Reason: nausea and vomiting) Qty: 14 0RF prednisolone 5 mg (21 tabs) tablets,dose pack 5 mg PO DAILY Qty: 21 0RF Rx Instructions: take as directed hydrocodone-acetaminophen 7.5-325 mg/15 mL solution 15 ml PO Q6H PRN (Reason: pain) 10 Days Qty: 600 0RF Referrals Follow up/Referrals: Taylor Olson PA [Primary Care Provider] - See instructions Clinical Impressions Clinical Impression: Post-operative pain Discharge ED Provider: Wilfredo Yousif Adult HPI General Chief complaint: PAIN Stated complaint: post op 08/04, bilateral ear pain, coughing blood Time Seen by Provider: 08/07/22 21:42 Mode of Arrival: Ambulatory Source of Information: Patient Limitations: No Limitations Description of Symptoms (Recalled from ER Triage Doc. by RN): Pt arrives to ED with c/o sore throat, bilateral ear pain, and coughing up blod. Pt had her tonsils removed last Wednesday. History of Present Illness HPI narrative: There is a very pleasant 27-year-old female with no significant past medical history who is postop day 3 of the tonsillectomy due to chronic tonsillitis who presents to the emergency department with a chief complaint of sore throat and bilateral ear pain. This has been going on since surgery. Constant. Moderate. No exacerbating or relieving factors. No associated symptoms. Denies any voice changes, trouble swallowing, chest pain, shortness of breath. Has no fevers or chills. Did state she coughed once earlier and there was a scant amount of blood but denies this happening more than once. Related Data Home Medications Medication Instructions Recorded Confirmed ergocalciferol (vitamin D2) 1,250 1,250 mcg PO DAILY Supplement 04/15/22 08/03/22 mcg (50,000 unit) capsule cholecalciferol (vitamin D3) 25 25 mcg PO WEEKLY Supplement 08/03/22 08/04/22 mcg (1,000 unit) capsule (Vitamin D3) escitalopram oxalate 20 mg tablet 20 mg PO QDAY Anxiety 08/03/22 08/03/22 (Lexapro) fluticasone propionate 50 1 spray intranasal DAILY allergies 08/03/22 08/03/22 mcg/actuation nasal spray,suspension (Flonase Allergy Relief) Previous Rx's Medication Instructions Recorded hydrocodone 7.5 mg-acetaminophen 15 ml PO Q6H PRN pain 10 days #600 08/04/22 325 mg/15 mL oral solution mL prednisolone 5 mg (21 tabs) 5 mg PO DAILY #21 tabs 08/04/22 tablets in a dose pack promethazine 25 mg tablet 25 mg PO Q6H PRN nausea and 08/04/22 vomiting #14 tabs Allergies Allergy/AdvReac Type Severity Reaction Status Date / Time bee venom protein (honey bee) Allergy Verified 06/10/22 13:[address] [facility] Disclaimer: The information contained in this section may have been updated after the patient was seen, as this information can be updated by other users. Medical History (Updated 08/07/22 @ 23:14 by Wilfredo Yousif MD) Anxiety and depression Cryptic tonsil Family history of thyroid cancer Hypothyroidism Numbness and tingling of both feet Preoperative clearance Serous otitis media Tonsil stone Surgical History History of wisdom tooth extraction, class IV edentulism Hx of breast surgery Family History Other Family history of diabetes mellitus type II Thyroid cancer
== END 2022-08-07 23:23 | disposition home or self-care (01) ==
PROVIDERS: Emergency Provider Emergency Medicine; PCP Physician Assistant
DX: J02.9 Acute pharyngitis, unspecified (principal); H92.03 Otalgia, bilateral; G89.18 Other acute postprocedural pain
CPT/HCPCS: 96372; 99283; 99284

== ENCOUNTER 2022-10-09 01:58 | Emergency (ER) | payer BC, SELFPAY ==
[2022-10-09 02:00] VITALS: BP 151/82; PULSE 110; RESP 16; O2SAT 99; BMI 43.0
--- NOTE | 2022-10-09 02:07 | XR_ITS ---
PROCEDURE INFORMATION: Exam: XR Right Hand Exam date and time: 10/09/2022 2:06 AM Age: 27 years old Clinical indication: Injury or trauma; Blunt trauma (contusions or hematomas); Patient HX: Smashed finger, right ring finger; Additional info: [employer] TECHNIQUE: Imaging protocol: Radiologic exam of the right hand. Views: 3 or more views. COMPARISON: No relevant prior studies available. FINDINGS: Bones/joints: No acute fracture, dislocation or osseous destructive process. Soft tissues: No acute finding or radiopaque foreign body. IMPRESSION: No acute osseous findings.
--- NOTE | 2022-10-09 02:53 | HMH.EDUPEXT ---
Discharge Plan Disposition Patient Disposition: Home, Self-Care Chief Complaint: Extremity Injury, Upper Prescriptions Prescriptions: No Action ergocalciferol (vitamin D2) 1,250 mcg (50,000 unit) capsule 1,250 mcg PO DAILY escitalopram oxalate 20 mg tablet See Rx Instructions .ROUTE .COMPLEX Qty: 90 0RF Dose Instruction: Take 1 tablet by mouth once daily Rx Instructions: Take 1 tablet by mouth once daily cholecalciferol (vitamin D3) [Vitamin D3] 25 mcg (1,000 unit) capsule 25 mcg PO WEEKLY Patient Comments: TAKE 1 CAPSULE BY MOUTH ONCE DAILY fluticasone propionate [Flonase Allergy Relief] 50 mcg/actuation spray,suspension 1 spray intranasal DAILY Rx Instructions: administer into each nostril Referrals Follow up/Referrals: Taylor Olson PA [Primary Care Provider] - See instructions Clinical Impressions Clinical Impression: Finger sprain, Injury of finger Instructions Patient Instructions: Sprain, DI for Finger Sprain Discharge ED Provider: Larisa (ED)Jayy Upper Extremity HPI General Chief Complaint: Extremity Injury, Upper Stated Complaint: AO 10/09/22 0130 injury right ring finger Time Seen by Provider: 10/09/22 02:30 Mode of Arrival: Ambulatory Source of Information: Patient and Medical Record Limitations: No Limitations Description of Symptoms (Recalled from ER Triage Doc. by RN): pt states was putting together a shelf and rt hand got caught. pt c/o rt ring finger . History of Present Illness HPI narrative: acute injury rt hand manuel rt ring/4th finger complaint: injury to: right and finger Onset (ago): hour(s) Other Extremity Injury: Right: fingers Other injuries: none Handedness: right Place: work Severity: moderate Context: direct blow Associated symptoms: denies other symptoms Related Data Home Medications Medication Instructions Recorded Confirmed ergocalciferol (vitamin D2) 1,250 1,250 mcg PO DAILY Supplement 04/15/22 08/26/22 mcg (50,000 unit) capsule cholecalciferol (vitamin D3) 25 25 mcg PO WEEKLY Supplement 08/03/22 08/26/22 mcg (1,000 unit) capsule (Vitamin D3) fluticasone propionate 50 1 spray intranasal DAILY allergies 08/03/22 08/26/22 mcg/actuation nasal spray,suspension (Flonase Allergy Relief) Previous Rx's Medication Instructions Recorded escitalopram oxalate 20 mg tablet See Rx Instructions .Route 06/12/23 .COMPLEX #90 tabs Allergies Allergy/AdvReac Type Severity Reaction Status Date / Time bee venom protein (honey bee) Allergy Verified 08/26/22 08:58 [facility] Disclaimer: The information contained in this section may have been updated after the patient was seen, as this information can be updated by other users. Medical History (Updated 10/09/22 @ 03:26 by Jayy Peres (CATHRYN)MD) Anxiety and depression Cryptic tonsil Family history of thyroid cancer Hypothyroidism Numbness and tingling of both feet Preoperative clearance Serous otitis media Tonsil stone Surgical History (Updated 08/26/22 @ 09:00 by Daniela Olivo CMA) History of wisdom tooth extraction, class IV edentulism Hx of breast surgery Status post tonsillectomy Family History Other Family history of diabetes mellitus type II Thyroid cancer Social History Smoking Status: Never smoker alcohol intake: current substance use type: denies use current occupational status: employed Travel in the last 8 weeks: None household members: spouse housing: house marital status: education level: high school service: No chcf: No caffeine: Yes special prince needs: No agree to transfusion: No do you feel safe at home: Yes victim of physical abuse: No victim of emotional abuse: No victim of sexual abuse: No would you like helpful sources
--- NOTE | 2022-10-09 03:08 | PC.NURSE ---
Small finger splint placed and pt given instructions on care. CR
[2022-10-09 03:24] VITALS: BP 145/71; PULSE 90; RESP 16; TEMP 36.7; O2SAT 99
== END 2022-10-09 03:29 | disposition home or self-care (01) ==
PROVIDERS: Emergency Provider Emergency Medicine; PCP Physician Assistant
DX: S63.614A Unspecified sprain of right ring finger, initial encounter (principal); F41.9 Anxiety disorder, unspecified; F32.A Depression, unspecified; E03.9 Hypothyroidism, unspecified; W23.1XXA Caught, crushed, jammed, or pinched between stationary objects, initial encounter
CPT/HCPCS: 73130; 99283; 99284

== ENCOUNTER 2022-10-29 19:19 | Emergency (ER) | payer BC, SELFPAY ==
[2022-10-29 19:21] VITALS: BP 151/85; PULSE 74; RESP 18; TEMP 36.8; O2SAT 97; BMI 43.9
--- NOTE | 2022-10-29 20:19 | XR_ITS ---
PROCEDURE INFORMATION: Exam: XR Left Shoulder Exam date and time: 10/29/2022 8:18 PM Age: 27 years old Clinical indication: Injury or trauma; Fall; Blunt trauma (contusions or hematomas); Shoulder; Left; Additional info: Left shohulder pain TECHNIQUE: Imaging protocol: Radiologic exam of the left shoulder. Views: 2 or more views. COMPARISON: No relevant prior studies available. FINDINGS: Bones/joints: Normal. Soft tissues: Normal. IMPRESSION: No acute findings.
--- NOTE | 2022-10-29 20:19 | XR_ITS ---
PROCEDURE INFORMATION: Exam: XR Left Humerus Exam date and time: 10/29/2022 8:20 PM Age: 27 years old Clinical indication: Injury or trauma; Fall; Blunt trauma (contusions or hematomas); Arm, upper; Left; Additional info: Left shohulder pain TECHNIQUE: Imaging protocol: Radiologic exam of the left humerus. Views: 2 or more views. COMPARISON: CR XR SHOULDER LT MIN 2V 10/29/2022 8:18 PM FINDINGS: Bones/joints: Normal. Soft tissues: Normal. IMPRESSION: No acute findings.
--- NOTE | 2022-10-29 20:27 | HMH.EDGENADL ---
Discharge Plan Disposition Patient Disposition: Home, Self-Care Condition: Good Chief Complaint: Fall Prescriptions Prescriptions: No Action ergocalciferol (vitamin D2) 1,250 mcg (50,000 unit) capsule 1,250 mcg PO DAILY escitalopram oxalate 20 mg tablet See Rx Instructions .ROUTE .COMPLEX Qty: 90 0RF Dose Instruction: Take 1 tablet by mouth once daily Rx Instructions: Take 1 tablet by mouth once daily cholecalciferol (vitamin D3) [Vitamin D3] 25 mcg (1,000 unit) capsule 25 mcg PO WEEKLY Patient Comments: TAKE 1 CAPSULE BY MOUTH ONCE DAILY fluticasone propionate [Flonase Allergy Relief] 50 mcg/actuation spray,suspension 1 spray intranasal DAILY Rx Instructions: administer into each nostril Referrals Follow up/Referrals: Taylor Olson PA [Primary Care Provider] - See instructions Activity Restrictions/Add. Instructions Additional Instructions/Restrictions: Take Tylenol 1000 mg every 6 hours (4 times daily) and ibuprofen 400 mg every 6 hours (4 times daily) as needed with food and water to prevent GI upset and kidney damage. Clinical Impressions Clinical Impression: Sprain of left shoulder Qualifiers: Encounter type: initial encounter Shoulder sprain type: rotator cuff capsule Qualified Code(s): S43.422A - Sprain of left rotator cuff capsule, initial encounter Discharge ED Provider: Doyle Braxton General Adult [facility] General Chief complaint: Fall Stated complaint: AO fall, 1844 LT shoulder pain Time Seen by Provider: 10/29/22 19:29 Mode of Arrival: Ambulatory Source of Information: Patient Limitations: No Limitations Description of Symptoms (Recalled from ER Triage Doc. by RN): Patient ambulatory to ED by POV. Patient fell off of porch at 1844 and landed on left shoulder. C/O left shoulder pain, and unable to complete ROM. Denies hitting head or LOC with fall. Reports still having sensation and feeling in extremity, palpable pulse. Reports pain 7/10. History of Present Illness HPI narrative: This is a 27-year-old female with no relevant medical history presenting with left shoulder pain. 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 Tonight, just prior to arrival, fell off of her porch and landed on her left shoulder. Did not strike her head. Complaining of left shoulder pain. Denies numbness, tingling, weakness, neck or back pain, loss of consciousness, any other trauma. Has not taken anything for the pain. Currently moderate in intensity made worse with range of motion. Related Data Home Medications Medication Instructions Recorded Confirmed ergocalciferol (vitamin D2) 1,250 1,250 mcg PO DAILY Supplement 04/15/22 08/26/22 mcg (50,000 unit) capsule cholecalciferol (vitamin D3) 25 25 mcg PO WEEKLY Supplement 08/03/22 08/26/22 mcg (1,000 unit) capsule (Vitamin D3) fluticasone propionate 50 1 spray intranasal DAILY allergies 08/03/22 08/26/22 mcg/actuation nasal spray,suspension (Flonase Allergy Relief) Previous Rx's Medication Instructions Recorded escitalopram oxalate 20 mg tablet See Rx Instructions .Route 09/14/22 .COMPLEX #90 tabs Allergies Allergy/AdvReac Type Severity Reaction Status Date / Time bee venom protein (honey bee) Allergy Verified 08/26/22 08:58 [facility] Disclaimer: The information contained in this section may have been updated after the patient was seen, as this information can be updated by other users. Medical History (Updated 10/29/22 @ 21:15 by Doyle Braxton MD) Anxiety and depression Cryptic tonsil Family history of thyroid cancer Hypothyroidism Numbness and tingling of both feet Preoperative clearance Serous otitis media Tonsil stone Surgical History (Updated 08/26/22 @ 09:00 by Daniela Olivo CMA) History of wisdom tooth extraction, class IV edentulism Hx of breast surgery Status post tonsillectomy Family
--- NOTE | 2022-10-29 21:11 | PC.NURSE ---
rounded on pt nothing needed at this time,call light at bs
[2022-10-29 21:33] VITALS: BP 143/87; PULSE 76; RESP 18; TEMP 36.6
== END 2022-10-29 21:34 | disposition home or self-care (01) ==
PROVIDERS: Emergency Provider Emergency Medicine; PCP Physician Assistant
DX: S43.422A Sprain of left rotator cuff capsule, initial encounter (principal); W17.89XA Other fall from one level to another, initial encounter; F41.9 Anxiety disorder, unspecified; F32.A Depression, unspecified; E03.9 Hypothyroidism, unspecified
CPT/HCPCS: 73030; 73060; 96372; 99283

== ENCOUNTER 2023-02-16 13:45 | Emergency (ER) | payer BC, SELFPAY ==
[2023-02-16 13:46] VITALS: BP 149/95; PULSE 105; RESP 20; TEMP 36.6; O2SAT 99; BMI 44.9
--- OUTSIDE RECORDS SUMMARY | 2023-02-16 13:56 | XMS_ITS | Clinical Summary ---
Author Name Unknown Address [address] [place] [address] [place] [address] Phone Organization [facility] , [facility] Address [address] [place] [address] Phone Care Team Providers Care Touch Up Painter Hand Name Role Phone Jayy Dee PA-C [phone] Reason for Visit and Chief Complaint Physician Specified Plan of Treatment No Plan of Treatment Recorded Assessments Includes: Assessments from this encounter No Assessments Recorded Medical Equipment - Implanted Devices Includes: Current Devices No Medical Equipment Recorded Medications Administered Includes: Administered Medications from this encounter No Administered Medications Recorded Results Includes: Results discussed during this encounter No Results Recorded For Specified Dates History of Present Illness Includes: History of Present Illness from this encounter No History of Present Illness Recorded Social History No Social History Recorded - Smoking Status Unknown Medical History Includes: Medical History addressed during this encounter No Medical History Recorded Family History Includes: Family History addressed during this encounter No Family History Recorded Review of Systems Includes: Review of Systems from this encounter No Review of Systems Recorded Mental Status Includes: Mental Status from this encounter No Mental Status Recorded Functional Status Includes: Functional Status from this encounter No Functional Status Recorded Physical Exam Includes: Physical Exam from this encounter No Physical Exam Recorded Insurance Includes: Active Insurance Policies Plan Name Member ID Group # Subscriber Relationship Effect mary Dates 1 - [facility] [id number] Kashmir Martinez Columba f Clinical Notes Includes: Clinical Notes from this encounter No Clinical Notes Recorded
--- OUTSIDE RECORDS SUMMARY | 2023-02-16 13:56 | XMS_ITS ---
Author Name Unknown Address [address] [place] [address] [place] [address] Phone Organization [facility] , [facility] Address [address] [place] [address] Phone Care Team Providers Care Certified Performance Technologist Name Role Phone Luiz DORANTES, Jayy Nino [phone] Plan of Treatment No Plan of Treatment Recorded Assessments Includes: Assessments for all patient encounters No Assessments Recorded Medical Equipment - Implanted Devices Includes: Current and historical Devices No Medical Equipment Recorded Medications Administered Includes: Administered Medications in patient's chart No Administered Medications Recorded Results Includes: Results from 02/16/2022 through 02/16/2023 No Results Recorded For Specified Dates History of Present Illness History of Present Illness not supported for this document type No History of Present Illness Recorded Social History No Social History Recorded - Smoking Status Unknown Medical History Includes: Medical History in patient's chart No Medical History Recorded Family History Includes: Family History in patient's chart No Family History Recorded Review of Systems Review of Systems not supported for this document type No Review of Systems Recorded Mental Status No Mental Status Recorded Functional Status No Functional Status Recorded Physical Exam Physical Exam not supported for this document type No Physical Exam Recorded Insurance Includes: Active Insurance Policies Plan Name Member ID Group # Subscriber Relationship Effect mary Dates 1 - [facility] [id number] Kashmir Martinez Columba f Clinical Notes Includes: Signed Clinical Notes starting from 03/19/2022 No Clinical Notes Recorded
--- OUTSIDE RECORDS SUMMARY | 2023-02-16 13:56 | XMS_ITS ---
Care Plan - [facility], [facility] Created on: February 16, 2023 Kashmir Martinez : 1995 Sex: Female Author Name Unknown Address [address] [place] [address] [place] [address] Phone Organization [facility] , [facility] Address [address] [place] [address] Phone Care Team Providers Care Membership Sales Advisor Name Role Phone Luiz DORANTES, Jayy Nino [phone]
[2023-02-16 14:13] LABS: Microscopic, Urine URINE MICROSCOPIC (MICROSCOPIC)
[2023-02-16 14:23] LABS: Basophils # 0.1 K/mm3 (0-0.2); Basophils % 0.6 % (0.1-2.0); Eosinophils # 0.1 K/mm3 (0.0-0.4); Eosinophils % 0.7 % (0.1-12.0); Hematocrit 42.6 % (37.0-47.0); Hemoglobin 15.1 g/dL (12.2-16.2); Lymphocytes # 2.2 K/mm3 (0.7-4.5); Lymphocytes % 18.8 % (10-50); Mean Corpuscular HGB Conc 35.5 g/dL (31.8-35.4); Mean Corpuscular Hemoglobin 27.8 pg (27.0-31.2); Mean Corpuscular Volume 78.4 fl (81-99); Mean Platelet Volume 10.1 fl (7.4-10.4); Monocytes # 0.6 K/mm3 (0.1-1.0); Monocytes % 5.4 % (1.7-9.3); Neutrophils # 8.6 K/mm3 (1.8-7.8); Neutrophils % 74.5 % (37.0-80.0); Platelet Count 295 K/mm3 (142-424); Red Blood Count 5.44 M/mm3 (4.20-5.40); Red Cell Distribution Width 15.8 % (11.5-17.5); White Blood Count 11.6 K/mm3 (4.8-10.8)
--- NOTE | 2023-02-16 14:23 | CT_ITS ---
FINAL REPORT TECHNIQUE: Postcontrast axial images through the abdomen and pelvis were performed. This study was performed with techniques to keep radiation doses as low as reasonably achievable, (ALARA). Individualized dose reduction techniques using automated exposure control or adjustment of mA and/or kV according to the patient's size were employed. CLINICAL HISTORY: abd pain bilious vomiting FINDINGS: Abdomen: There is a noncalcified nodule at the left base measuring 10 mm well seen on image 10 of series 3. There is diffuse fatty infiltration of the liver. The gallbladder is present. The spleen is unremarkable. The adrenals are normal. The pancreas is unremarkable. The kidneys enhance appropriately. The aorta is normal in caliber. There are few small lymph nodes in the right lower quadrant which are nonspecific. Pelvis: The appendix is mildly enlarged measuring 8 mm in diameter. No surrounding inflammation is identified. The urinary bladder is unremarkable. There is a small amount of free fluid in the pelvis. Free fluid demonstrates a mean attenuation value of 34 Hounsfield units. IMPRESSION: Nodule at the left base measures 8 mm. As per Fleischners criteria, follow-up CT is recommended in 6-12 months. Mildly enlarged appendix, unchanged from prior. Mild to moderate complex fluid in the pelvis. Reviewed, Interpreted and Dictated by Juanpablo Lazo MD Transcribed by Sonja Solano Authenticated and [facility]
--- NOTE | 2023-02-16 14:23 | XR_ITS ---
FINAL REPORT CLINICAL HISTORY: vomiting cp FINDINGS: SINGLE-VIEW CHEST The heart size is normal. The mediastinum is normal. The lungs are clear. There is no pneumothorax. IMPRESSION: No acute cardiopulmonary process. Reviewed, Interpreted and Dictated by Juanpablo Lazo MD Transcribed by Sonja Solano Authenticated and [facility]
--- NOTE | 2023-02-16 14:24 | HMH.EDGENADL ---
Discharge Plan Disposition Patient Disposition: Still a Patient Condition: Fair Prescriptions Prescriptions: New ondansetron 4 mg tablet,disintegrating 4 mg PO Q6H PRN (Reason: nausea and vomiting) 5 Days Qty: 20 0RF No Action ergocalciferol (vitamin D2) 1,250 mcg (50,000 unit) capsule 1,250 mcg PO DAILY Wegovy 0.25 mg/0.5 mL pen injector 0.25 mg SQ WEEKLY Qty: 2 0RF Rx Instructions: administer weeks 1 through 4 of therapy Vraylar 1.5 mg capsule 1.5 mg PO DAILY Qty: 30 2RF cholecalciferol (vitamin D3) [Vitamin D3] 25 mcg (1,000 unit) capsule 25 mcg PO WEEKLY Patient Comments: TAKE 1 CAPSULE BY MOUTH ONCE DAILY fluticasone propionate [Flonase Allergy Relief] 50 mcg/actuation spray,suspension 1 spray intranasal DAILY Rx Instructions: administer into each nostril Referrals Follow up/Referrals: Leisa Patel DO [Staff Physician] - See instructions Taylor Olson PA [Primary Care Provider] - See instructions Activity Restrictions/Add. Instructions Additional Instructions/Restrictions: With a constellation of symptoms that you have had today including sudden left-sided adnexal pain nausea vomiting that was followed by that with free fluid found on your CT scan and history of PCOS this is most likely secondary to ruptured ovarian cyst. Your symptoms have dramatically improved so we will not look into this further you are hemodynamically stable and no further concern for any need for surgical intervention. Please follow-up with Dr. Patel at your next availability. Additionally there was an 8 mm pulmonary nodule that was found incidentally which needs a repeat CT scan in 8 to 12 months. Return to the emergency part with any worsening symptoms Clinical Impressions Clinical Impression: Ovarian cyst rupture, Incidental pulmonary nodule Nausea and vomiting Qualifiers: Vomiting type: bilious vomiting Qualified Code(s): R11.14 - Bilious vomiting Instructions Patient Instructions: DI for Acute Abdominal Pain Discharge ED Provider: Latonya Osullivan Adult HPI <Latonya Osullivan MD - Last Filed: 02/16/23 15:57> General Chief complaint: Abdominal Pain Stated complaint: vomiting,abd pain Time Seen by Provider: 02/16/23 14:22 Mode of Arrival: Wheelchair Source of Information: Patient Limitations: No Limitations Description of Symptoms (Recalled from ER Triage Doc. by RN): pt started new medication last night known as vraylar 1.5 mg, today at 1000 pt woke up with naausea/vomiting and stabbing chest and stomach pain with dizziness History of Present Illness HPI narrative: This 27-year-old female presents to the emergency department with concerns of vomiting, chest pain, stomach pain, dizziness. Patient states she started Vraylar yesterday and has only taken 1 dose. Patient states she woke up with nausea and had emesis at least 3 times today. She states it is bilious. Not bloody or coffee-ground. Patient is also having diarrhea, not bloody or black. She is having epigastric abdominal pain radiating up into the chest and occasionally gets sharp stabbing pain in the chest. She also describes chest pressure. Patient describes intermittent dizziness and states she has not been able to tolerate hardly any liquids by mouth today. No other daily medications. Related Data Home Medications Medication Instructions Recorded Confirmed ergocalciferol (vitamin D2) 1,250 1,250 mcg PO DAILY Supplement 04/15/22 08/26/22 mcg (50,000 unit) capsule cholecalciferol (vitamin D3) 25 25 mcg PO WEEKLY Supplement 08/03/22 08/26/22 mcg (1,000 unit) capsule (Vitamin D3) fluticasone propionate 50 1 spray intranasal DAILY allergies 08/03/22 08/26/22 mcg/actuation nasal spray,suspension (Flonase Allergy Relief) Previous Rx's Medication Instructions Recorded cariprazine 1.5 mg capsule 1.5 mg PO DAILY #30 caps 02/15/23 (Vraylar) semaglutide (weight loss) 0.25 0.25 mg (
--- NOTE | 2023-02-16 14:35 | ECG_ITS ---
APPROVED REPORT Exam: Resting ECG HR:87 bpm ECG Measurements Heart Rate 87 AXES TN 145 P 11 QRSd 89 QRS 42 QT 364 T 26 QTc 409 Conclusion SINUS RHYTHM NORMAL ECG UNCONFIRMED REPORT Electronically signed by : Ramana Naranjo MD 02/16/2023 20:07:10
[2023-02-16 14:39] LABS: Alanine Aminotransferase 62 U/L (12-78); Albumin Level 4.9 g/dl (3.5-5.0); Albumin/Globulin Ratio 1.2 (1.1-1.8); Alkaline Phosphatase 101 U/L (38-126); Anion Gap 13.8 mEq/L (5-15); Aspartate Amino Transferase 50 U/L (14-36); Bilirubin,Total 0.6 mg/dl (0.2-1.3); Blood Urea Nitrogen 12 mg/dl (7-17); Calcium 9.5 mg/dl (8.4-10.2); Carbon Dioxide 26 mmol/L (22.0-30.0); Chloride 103 mmol/L (98-107); Creatinine Clearance Estimated 103 mL/min (50-200); Estimated Glomerular Filt Rate 122 ml/min (>60); GFR (African American) 147 ML/MIN (>60); Glucose 123 mg/dl (74-100); Potassium 3.8 mmoL/L (3.5-5.1); Sodium 139 mmol/L (136-145); Total Protein,Serum 8.9 g/dl (6.3-8.2)
[2023-02-16 14:45] LABS: Appearance,Urine CLEAR (Clear); Bilirubin,Urine Negative (Negative); Blood, Urine 2+ (Negative); Color,Urine YELLOW (Yellow); Glucose,Urine (UA) Negative (Negative); Ketones,Urine Negative (Negative); Leukocyte Esterase,Urine Negative (Negative); Nitrate,Urine Negative (Negative); PH,Urine 5.5 (5.0-8.5); Protein,Urine Negative (Negative); Urobilinogen,Urine 0.2 EU/dl (0.2)
[2023-02-16 14:47] LABS: Lactic Acid 1.4 mmol/L (0.7-2.1)
[2023-02-16 15:00] VITALS: BP 119/76; PULSE 85; RESP 20; O2SAT 98
[2023-02-16 15:06] LABS: Troponin I < 0.01 ng/ml (0.00-0.034)
[2023-02-16 15:06] LABS: Bacteria,Urine Trace /lpf; Squamous Epithelial Cell,Urine Occasional #/hpf (0-5); WBC,Urine Occasional #/hpf (0-3)
[2023-02-16 15:30] VITALS: BP 117/66; PULSE 97; RESP 18; O2SAT 99
[2023-02-16 15:55] LABS: HCG Qualitative, Serum Negative (Negative)
[2023-02-16 17:39] VITALS: BP 138/71; PULSE 89; RESP 16; TEMP 36.9; O2SAT 98
== END 2023-02-16 17:40 | disposition still patient (30) ==
PROVIDERS: Emergency Provider Emergency Medicine; PCP Physician Assistant
DX: R10.9 Unspecified abdominal pain (principal); R07.9 Chest pain, unspecified; R11.10 Vomiting, unspecified; R42 Dizziness and giddiness
CPT/HCPCS: 71045; 74177; 80053; 81001; 83605; 84484; 84703; 85025; 93005; 96361; 96374; 99285; J2405; Q9967

== ENCOUNTER → 2023-02-24 10:01 | Outpatient (CLI) | payer BC, SELFPAY ==
--- NOTE | 2023-02-24 10:07 | US_ITS ---
PROCEDURE: US TRANSVAGINAL CLINICAL INDICATION: Lt. complex ovarian cyst COMPARISON: No exams were available for comparison FINDINGS: Transvaginal sonographic images of the pelvis were obtained. UTERUS: 6.8 cm x 5.0 cm x 3.9 cm retroverted with a combined endometrial thickness of 14.9mm. There is a 6.5 mm cervical nabothian cyst. LEFT OVARY: 3.2 cmx2.2 cmx1.6cm with a volume of 5.6ml. There are multiple peripheral follicles consistent with polycystic ovary. RIGHT OVARY: 5.0 cmx 3.9 cmx1.7 cm with a volume of 17.2ml. There are multiple peripheral follicles consistent with multi-cystic ovary. Both ovaries are seen and appear polycystic. Doppler flow to both ovaries are seen. There is trace fluid in the cul-de-sac. IMPRESSION: 1. Retroverted uterus normal in shape and size. 2. The endometrium is thickened at 14.9 mm. According to the patient's history she has been on her period for 2 months. 3. Suggest endometrial sampling. 4. Both ovaries are seen and appear polycystic. The right ovary is larger than the left ovary. 5. There is trace fluid in the cul-de-sac Dictated by: Cheo Chirinos MD 02/24/2023 13:29 Cheo Chirinos MD in [place] 02/24/2023 13:29
== END ==
PROVIDERS: PCP Physician Assistant; Visit Provider Obstetrics & Gynecology
DX: N83.292 Other ovarian cyst, left side (principal)
CPT/HCPCS: 76830

== ENCOUNTER 2023-02-26 17:20 | Emergency (ER) | payer BC, SELFPAY ==
[2023-02-26 17:45] VITALS: BP 131/78; PULSE 89; RESP 17; TEMP 37.2; O2SAT 98; BMI 44.9
--- NOTE | 2023-02-26 17:45 | EXP.UTC ---
Discharge Plan Disposition Patient Disposition: Home, Self-Care Condition: Good Prescriptions Prescriptions: New azithromycin [Zithromax] 250 mg tablet 250 mg PO UD DOSE PK Qty: 6 0RF Rx Instructions: Take two (2) tablets today, then one (1) tablet days #2 thru #5 methylprednisolone 4 mg Tablets,Dose Pack 4 mg PO DIRECTED Qty: 21 0RF odxufagftqfzxfw-exziazwts-JI [Bromfed DM] 2-30-10 mg/5 mL Syrup 5 ml PO Q6H PRN (Reason: Cough) Qty: 240 0RF Paxlovid 300 mg (150 mg x 2)-100 mg tablets,dose pack See Rx Instructions .ROUTE .COMPLEX Qty: 30 0RF Rx Instructions: take TWO 150 mg tablets of nirmatrelvir with ONE 100 mg tablet of ritonavir twice daily for 5 days No Action ergocalciferol (vitamin D2) 1,250 mcg (50,000 unit) capsule 1,250 mcg PO DAILY Wegovy 0.5 mg/0.5 mL pen injector 0.5 mg SQ WEEKLY Qty: 2 0RF Rx Instructions: administer weeks 5 through 8 of therapy ondansetron 8 mg tablet,disintegrating 8 mg PO Q8H PRN (Reason: nausea and vomiting) Qty: 30 0RF Vraylar 1.5 mg capsule 1.5 mg PO DAILY Qty: 30 2RF tranexamic acid 650 mg tablet 650 mg PO Q8H Qty: 15 2RF cholecalciferol (vitamin D3) [Vitamin D3] 25 mcg (1,000 unit) capsule 25 mcg PO WEEKLY Patient Comments: TAKE 1 CAPSULE BY MOUTH ONCE DAILY fluticasone propionate [Flonase Allergy Relief] 50 mcg/actuation spray,suspension 1 spray intranasal DAILY Rx Instructions: administer into each nostril Referrals Follow up/Referrals: Taylor Olson PA [Primary Care Provider] - See instructions Activity Restrictions/Add. Instructions Additional Instructions/Restrictions: Drink plenty of fluids. Take tylenol or ibuprofen for pain or fever. Take the medications as directed. Follow up with your regular doctor. GO TO THE ER FOR ANY WORSENING SYMPTOMS Clinical Impressions Clinical Impression: COVID-19 Instructions Patient Instructions: Ondansetron, Methylprednisolone, Coronavirus Disease 2019, Preventing the Spread of Coronavirus Discharge Instructions Discharge ED Provider: Terrell Bauman [facility] – [place] HPI General Stated complaint: covid pos 02/24, SOA, congestion, cough Time Seen by Provider: 02/26/23 17:45 History of Present Illness Provider Complaint: She was diagnosed with covid-19 2 days ago. She came in today because she has had worsening sinus congestion and chest congestion. Related Data Home Medications Medication Instructions Recorded Confirmed ergocalciferol (vitamin D2) 1,250 1,250 mcg PO DAILY Supplement 04/15/22 02/24/23 mcg (50,000 unit) capsule cholecalciferol (vitamin D3) 25 25 mcg PO WEEKLY Supplement 08/03/22 02/24/23 mcg (1,000 unit) capsule (Vitamin D3) fluticasone propionate 50 1 spray intranasal DAILY allergies 08/03/22 02/24/23 mcg/actuation nasal spray,suspension (Flonase Allergy Relief) Previous Rx's Medication Instructions Recorded cariprazine 1.5 mg capsule 1.5 mg PO DAILY #30 caps 02/15/23 (Vraylar) ondansetron 8 mg disintegrating 8 mg PO Q8H PRN nausea and 02/23/23 tablet vomiting #30 tabs semaglutide (weight loss) 0.5 0.5 mg (0.5 mL) SQ WEEKLY #2 mL 02/23/23 mg/0.5 mL subcutaneous pen injector (Wegovy) azithromycin 250 mg tablet 250 mg PO UD DOSE PK #6 tabs 02/26/23 (Zithromax) ehllgtvscyejuvu-lynmhnbcccdpigq-NG 5 ml PO Q6H PRN Cough #240 mL 02/26/23 2 mg-30 mg-10 mg/5 mL oral syrup (Bromfed DM) methylprednisolone 4 mg tablets in 4 mg PO DIRECTED #21 tabs 02/26/23 a dose pack nirmatrelvir 300 mg (150 mg See Rx Instructions PO .COMPLEX 02/26/23 x2)-ritonavir 100 mg tablet,dose #30 tabs pack (Paxlovid) tranexamic acid 650 mg tablet 650 mg PO Q8H #15 tabs 02/26/23 Allergies Allergy/AdvReac Type Severity Reaction Status Date / Time bee venom protein (honey bee) Allergy Verified 02/24/23 11:23 [facility] Disclaimer: The information contained in this section may menjivar
--- NOTE | 2023-02-26 17:48 | XR_ITS ---
PROCEDURE INFORMATION: Exam: XR Chest Exam date and time: 02/26/2023 5:55 PM Age: 27 years old Clinical indication: Cough; Additional info: Cough covid pos TECHNIQUE: Imaging protocol: Radiologic exam of the chest. Views: 2 views. COMPARISON: CR XR CHEST PORTABLE 02/16/2023 4:05 PM FINDINGS: Lungs: Unremarkable. No consolidation. Pleural spaces: Unremarkable. No pleural effusion. No pneumothorax. Heart/Mediastinum: Unremarkable. No cardiomegaly. Bones/joints: Unremarkable. IMPRESSION: No acute findings.
[2023-02-26 18:43] VITALS: BP 131/78; PULSE 89; RESP 17; TEMP 37.2; O2SAT 98
== END 2023-02-26 18:48 | disposition home or self-care (01) ==
PROVIDERS: Emergency Provider Nurse Practitioner Family; PCP Physician Assistant
DX: U07.1 COVID-19 (principal); R06.02 Shortness of breath; R09.81 Nasal congestion; R05.9 Cough, unspecified; E03.9 Hypothyroidism, unspecified
CPT/HCPCS: 71046; 99204; 99212; G0463

== ENCOUNTER → 2023-03-09 15:39 | Outpatient (CLI) | payer BC, SELFPAY ==
[2023-03-09 16:14] LABS: Basophils # 0.1 K/mm3 (0-0.2); Basophils % 0.6 % (0.1-2.0); Eosinophils # 0.2 K/mm3 (0.0-0.4); Eosinophils % 1.3 % (0.1-12.0); Hematocrit 38.7 % (37.0-47.0); Hemoglobin 13.6 g/dL (12.2-16.2); Lymphocytes % 24.6 % (10-50); Mean Corpuscular HGB Conc 35.2 g/dL (31.8-35.4); Mean Corpuscular Hemoglobin 27.6 pg (27.0-31.2); Mean Corpuscular Volume 78.5 fl (81-99); Mean Platelet Volume 9.3 fl (7.4-10.4); Monocytes # 0.7 K/mm3 (0.1-1.0); Monocytes % 5.5 % (1.7-9.3); Neutrophils # 8.3 K/mm3 (1.8-7.8); Neutrophils % 68.1 % (37.0-80.0); Platelet Count 324 K/mm3 (142-424); Red Blood Count 4.93 M/mm3 (4.20-5.40); Red Cell Distribution Width 15.8 % (11.5-17.5); White Blood Count 12.2 K/mm3 (4.8-10.8)
[2023-03-09 16:22] LABS: Hemoglobin A1C 5.1 % (4.0-6.0)
[2023-03-09 16:48] LABS: Alanine Aminotransferase 65 U/L (12-78); Alkaline Phosphatase 90 U/L (38-126); Aspartate Amino Transferase 52 U/L (14-36); Bilirubin,Total 0.4 mg/dl (0.2-1.3); Blood Urea Nitrogen 13 mg/dl (7-17); Carbon Dioxide 24 mmol/L (22.0-30.0); Chloride 104 mmol/L (98-107); Estimated Glomerular Filt Rate 121 ml/min (>60); GFR (African American) 146 ML/MIN (>60)
[2023-03-09 16:49] LABS: Albumin Level 4.7 g/dl (3.5-5.0); Albumin/Globulin Ratio 1.4 (1.1-1.8); Calcium 9.2 mg/dl (8.4-10.2); Globulin 3.3 g/dL (1.3-3.2); Glucose 115 mg/dl (74-100); Sodium 140 mmol/L (136-145)
[2023-03-09 17:17] LABS: Thyroid Stimulating Hormone 2.33 uIU/mL (0.465-4.68)
[2023-03-09 17:37] LABS: HCG,Quantitative < 2 mIU/ml (0-5.42)
[2023-03-11 10:13] LABS: Testosterone,Total 30 ng/dL (13-71)
[2023-03-21 22:25] LABS: Anti Mullerian Hormone (AMH) 7.45
== END ==
PROVIDERS: PCP Physician Assistant; Visit Provider Obstetrics & Gynecology
DX: Z01.818 Encounter for other preprocedural examination (principal); E28.2 Polycystic ovarian syndrome; N93.9 Abnormal uterine and vaginal bleeding, unspecified; N97.0 Female infertility associated with anovulation; E66.9 Obesity, unspecified; Z68.42 Body mass index [BMI] 45.0-49.9, adult
CPT/HCPCS: 36415; 80053; 82397; 82626; 83036; 83498; 84403; 84443; 84702; 85025

== ENCOUNTER 2023-03-11 06:05 | Day surgery (SDC) | payer BC, SELFPAY ==
[2023-03-09 13:50] VITALS: BMI 46.8
[2023-03-11] VITALS (11 sets, daily range): BP systolic 109–133; BP diastolic 60–85; PULSE 94–102; RESP 16–18; TEMP 36.4–43; O2SAT 95–99
[2023-03-11 07:03] LABS: POC Glucose,Bedside 102 (70-110)
--- NOTE | 2023-03-11 07:48 | P.PNANES_ITS ---
[facility] Disclaimer: The information contained in this section may have been updated after the patient was seen, as this information can be updated by other users. Medical History Anxiety and depression Cryptic tonsil Family history of thyroid cancer Hypothyroidism Numbness and tingling of both feet PCOS (polycystic ovarian syndrome) Preoperative clearance Serous otitis media Tonsil stone Surgical History History of wisdom tooth extraction, class IV edentulism Hx of breast surgery Status post tonsillectomy Family History Family/Other Cancer Other Family history of diabetes mellitus type II Thyroid cancer Social History (Updated 03/11/23 @ 06:32 by Lalitha Lopes RN) Smoking Status: Never smoker alcohol intake: never substance use type: denies use current occupational status: unemployed Travel in the last 8 weeks: None household members: spouse housing: house marital status: education level: high school service: No senior living: No caffeine: Yes special prince needs: No agree to transfusion: No do you feel safe at home: Yes victim of physical abuse: No victim of emotional abuse: No victim of sexual abuse: No would you like helpful sources: No [facility] Anesthesia Checklist Patient Identification Patient Identification: Arm Band Structural Data Admitted From: Home Planned Operative Procedure/s: Hysteroscopy, D&C, Myosure Ablation Consent for Planned Operative Procedure(s) Verified: Yes Verified Documents: Surgical Consent and History and Physical NPO Status Verified Time NPO: 00:00 Additional verifications Anesthesia Reactions: Yes (nausea and vomiting) Hx Blood Transfusions: No Blood Transfusion Reaction: No Airway Assessment Mallampati Score:: Class II C-Spine Mobility Assessed: Yes TMJ Mobility Assessed: Yes Dentition: Good Dentition Neurological Assessment Level of Consciousness: Awake and Alert Anesthesia Plan Anesthesia Risk discussed: Yes Anesthesia Plan: Verified ASA Class: III Anesthesia Type: General
--- NOTE | 2023-03-11 08:13 | EXP.ANES.I ---
[facility] Anesthesia Record Part I Anesthesia Record I Intake, IV Amount: 500 Hydration: Adequate Estimated blood loss (mL): 10 Urine output (mL): 0 Blood Products used (#): none Blood Pressure: 114/65 SaO2: 95 Pulse Rate: 97 Airway Patency: Patent Respiratory Rate: 16 Temperature: 99.2 F Patient is:: Drowsy and Stable Stable to PACU at:: 08:10
--- NOTE | 2023-03-11 09:37 | EXP.OP.NOTE ---
Date of procedure: 03/11/23 Pre-op Diagnosis:: 1. Abnormal uterine bleeding 2. Pelvic pain 3. Thickened endometrial stripe Post-op Diagnosis:: 1. Pelvic pain 2. Fibroid uterus 3. Thickened endometrial stripe 4. Endometrial polyp 5. Cerivcal polyp Procedure performed:: Hysteroscopy, dilation, and MyoSure polypectomy Surgeon:: Leisa Patel DO PAINT DEPARTMENT SUPERVISOR:: Kalyan Marie Anesthesia: GETA Estimated blood loss (mL): 5 Operative findings:: Findings: -EUA revealed an 8-week anteverted uterus secondary to habitus unable to determine contour. No significant prolapse or support defects noted. -Hysteroscopy revealed Thickened endometrial lining with several small polyps. cervical polyp noted. Tubal ostia visualized. Operative note:: The patient was taken back to the OR where general anesthesia was obtained.? She was placed in the dorsal lithotomy position using yellow fin stirrups and sterilely prepped and draped in the usual fashion.? An in and out catheter was used to drain her bladder.? A timeout was performed.? A weighted speculum was used to visualize this cervix, a single-tooth tenaculum was applied to the anterior lip of the cervix. The cervix was only slightly dilated to allow entry to the ectocervix and hydrodisection was used to get the scope the rest of the way into the cavity. The hysterscope was inserted and a large polyp in the cervical canal. Thickened endometrial lining noted with several small polyps. Images were obtained of the cavity. The tubal ostia were visible.? Decision was made to proceed with the MyoSure for polypectomy. Device set up, primed and zeroed. The device was used to resect the outer edge of the polyp until the complete polyp was removed down to the base. At the conclusion of the procedure there was a fluid deficit of 45mLs. Total myosure cutting time was 43seconds. Following complete removal of the polyps the MyoSure hysteroscope was removed.? The single-tooth tenaculum was removed and hemostasis was noted at the tenaculum sites.? All instruments were removed from the vagina.? All counts were correct, per nursing.? This concluded the procedure, the patient was awakened from anesthesia, and transferred to the PACU in stable condition. Condition: stable Disposition: PACU Specimens:: Endometrial polyp and cervical polyp Complications:: None
--- NOTE | 2023-03-12 14:01 | P.PNANES_ITS ---
[facility] Anesthesia Record Part II Anesthesia Record Part II Discharge Time: 08:40 Destination: Surgical Day Care (OP Surgery) PACU nurse assessment reviewed?: Yes Patient Condition:: Good Anesthesia Complications:: None Swallowing reflex intact?: Yes Airway Patency: Patent Cyanosis?: No Blood Pressure: 125/69 SaO2: 97 Respiratory Rate: 16 Pulse Rate: 94 Temperature: 97.6 F Mental Status: Alert & Oriented Pain level:: 0 Nausea and/or vomitting:: Nauseated Intake, IV Amount: 0 Hydration: Adequate
[2023-03-12 14:02] VITALS: BP 125/69; PULSE 94; RESP 16; TEMP 36.4; O2SAT 97
== END 2023-03-11 09:45 | disposition home or self-care (01) ==
PROVIDERS: PCP Physician Assistant; Visit Provider Obstetrics & Gynecology
PROC: (CPT 58558; principal; 2023-03-11 07:30)
DX: N85.00 Endometrial hyperplasia, unspecified (principal); D25.9 Leiomyoma of uterus, unspecified; N84.1 Polyp of cervix uteri; R10.2 Pelvic and perineal pain
CPT/HCPCS: 58558; 82962; J2405

== ENCOUNTER → 2023-03-19 14:53 | Outpatient (CLI) | payer BC, SELFPAY ==
--- NOTE | 2023-03-19 14:53 | CT_ITS ---
FINAL REPORT TECHNIQUE: Axial imaging of the chest was obtained without contrast. Reformatted images were also obtained and reviewed.This study was performed with techniques to keep radiation doses as low as reasonably achievable, (ALARA). Individualized dose reduction technique using automated exposure control or adjustment of mA and/or kV according to the patient's size were employed. CLINICAL HISTORY: lung nodule left lung base, f/h lung cancer COMPARISON: 02/16/2023 FINDINGS: There is soft tissue in the anterior mediastinum likely related to residual thymus. There is no axillary adenopathy. There is no hilar or mediastinal mass or adenopathy. Heart size is normal. There is no pericardial or pleural effusion. There is a partially calcified granuloma in the superior segment of the left lower lobe measuring up to 7 mm in greatest dimension, similar to prior exam. Lungs are otherwise clear. Limited imaging of the upper abdomen demonstrates diffuse fatty infiltration of the liver. IMPRESSION: Partially calcified granuloma in the superior segment of the left lower lobe. Lungs otherwise clear. Reviewed, Interpreted and Dictated by Juanpablo Lazo MD Transcribed by Joan Pearson Authenticated and [facility]
--- NOTE | 2023-03-19 14:53 | MM_ITS ---
PROCEDURE INFORMATION: Exam: MG Bilateral Screening 3D Mammography Exam date and time: 03/19/2023 2:50 PM Age: 28 years old Clinical indication: Screening examination; Additional info: Family history of breast carcinoma. TECHNIQUE: Imaging protocol: Bilateral Screening tomosynthesis and 2D mammography including computer-aided detection (CAD) when performed. COMPARISON: No relevant prior studies available. FINDINGS: MAMMOGRAPHY: Breast composition: There are scattered areas of fibroglandular density. Mass: In the right axilla there is a 0.6 cm circumscribed, round mass anterior to the pectoralis muscle, only seen on MLO frame 45. This may represent a lymph node however no definite fatty hilum is seen. No suspicious masses in the left breast. Architectural distortion: No suspicious distortion. Calcifications: No suspicious calcifications. Asymmetric density: None. Skin thickening: None. Axillary adenopathy: None. IMPRESSION: 1. Recommend targeted right breast/axillary ultrasound for further evaluation of a round mass in the right axilla on MLO projection. This may represent a lymph node however no definite fatty hilum is seen. 2. No mammographic evidence of malignancy in the left breast. 3. Given the reported risk factors for this patient, a breast cancer risk assessment may prove useful for further evaluation. ASSESSMENT: BI-RADS Category 0: Incomplete- Need Additional Imaging Evaluation and/or Prior Mammograms for Comparison
--- NOTE | 2023-03-19 14:53 | US_ITS ---
PROCEDURE INFORMATION: Exam: US Right Breast, Complete Exam date and time: 03/19/2023 3:18 PM Age: 28 years old Clinical indication: Screening exam; Family history of breast cancer; Additional info: Family history breast cancer TECHNIQUE: Imaging protocol: Complete ultrasound of all four quadrants of the right breast and the retroareolar regions, including ultrasound of the axilla when performed. COMPARISON: MG MM DIG SCREENING MAMM BI W/CAD 03/19/2023 2:50 PM FINDINGS: Breast: 2 mm cystic structure in the right breast . Other findings: Lymph node in the right axilla measures 2.34 cm. . No mass identified IMPRESSION: 1. Lymph node in the right axilla measures 2.34 cm. . 2. 2 mm cystic structure in the right breast . ASSESSMENT: No malignancy identified
== END ==
LOC: RAD 14:53
PROVIDERS: PCP Physician Assistant; Visit Provider Physician Assistant
DX: R91.1 Solitary pulmonary nodule (principal); Z80.3 Family history of malignant neoplasm of breast
CPT/HCPCS: 71250; 76641; 77063; 77067

== ENCOUNTER → 2023-03-31 10:42 | Outpatient (CLI) | payer BC, SELFPAY ==
--- NOTE | 2023-03-31 10:42 | FL_ITS ---
FINAL REPORT CLINICAL HISTORY: infertility 0.33 min DAP 320.23 FINDINGS: FLUOROSCOPY LESS THAN 1 HOUR HISTORY: Fluoroscopy guidance. FINDINGS: Fluoroscopic guidance was provided for hysterosalpingography. No spot films were obtained. A total of 0.33 minutes of fluoroscopy time were used. DAP: 320.23 mGy IMPRESSION: As above. Reviewed, Interpreted and Dictated by Juanpablo Lazo MD Transcribed by Magdalena Marcus Authenticated and [facility]
[2023-03-31] MEDS: IOPAMIDOL-370 (76%);100ML BOTTLE 60 ML IV (11:26)
--- NOTE | 2023-03-31 11:34 | HMH.PROCNOTE ---
[facility] Procedure Note Date: 03/31/23 Time: 11:15 Procedure Note:: Findings: bilateral patent fallopian tubes without hydrosalpinx. No endometrial filling defects noted. Patient was positioned in the dorsal lithotomy position. Speculum was inserted. Cervix and vagina was cleansed with Hibiclens. Tenaculum was placed on anterior lip of the cervix. 30 cc of contrast was drawn up into a syringe and attached to the [place] HSG cannula. Contrast was flushed through cannula to remove air bubbles and ensure patency. Cannula was then inserted into the cervix. Fluoroscopy was initiated with 10 cc of contrast injected into the endometrial cavity. Fluoroscopy demonstrated contrast flowing from endometrial cavity right fallopian tubes initially. 15mL of additional contrast was injected into the cervix revealing patent bilateral fallopian tubes. Cavity appeared normal shape. Cannula was removed from the cervix. Tenaculum was removed from the cervix. Hemostasis was noted. Speculum removed from the vagina. Patient tolerated the procedure well.
== END ==
LOC: RAD 10:42
PROVIDERS: PCP Physician Assistant; Visit Provider Obstetrics & Gynecology
DX: N97.0 Female infertility associated with anovulation (principal)
CPT/HCPCS: 74740; Q9967

== ENCOUNTER 2023-04-06 14:13 | Outpatient (CLI) | payer BC, SELFPAY ==
[2023-04-08 09:21] LABS: FSH 4.7 mIU/mL (.); LH 4.6 mIU/mL (.)
== END 2023-04-06 23:59 ==
LOC: LAB 14:14
PROVIDERS: PCP Nurse Practitioner; Visit Provider Obstetrics & Gynecology
DX: E28.2 Polycystic ovarian syndrome (principal)
CPT/HCPCS: 36415; 83001; 83002

== ENCOUNTER 2023-04-27 13:59 | Outpatient (CLI) | payer BC, SELFPAY ==
[2023-04-28 08:19] LABS: Progesterone 5.6 ng/mL (.)
== END 2023-04-27 23:59 ==
LOC: LAB 14:00
PROVIDERS: PCP Physician Assistant; Visit Provider Obstetrics & Gynecology
DX: N97.0 Female infertility associated with anovulation (principal)
CPT/HCPCS: 36415; 84144

== ENCOUNTER 2023-04-30 20:41 | Outpatient (CLI) | payer BC, SELFPAY | END 2023-04-30 23:59 | LOC: LAB.DROPOF 20:42 | PROVIDERS: PCP Obstetrics & Gynecology; Visit Provider Obstetrics & Gynecology | DX: R39.89 Other symptoms and signs involving the genitourinary system (principal); B96.29 Other Escherichia coli [E. coli] as the cause of diseases classified elsewhere | CPT/HCPCS: 87086 ==

== ENCOUNTER 2023-05-10 15:03 | Outpatient (CLI) | payer BC, SELFPAY ==
[2023-05-11 09:08] LABS: FSH 6.3 mIU/mL (.); LH 7.6 mIU/mL (.); Progesterone <0.1 ng/mL (.)
== END 2023-05-10 23:59 ==
LOC: LAB 15:04
PROVIDERS: PCP Physician Assistant; Visit Provider Obstetrics & Gynecology
DX: N97.0 Female infertility associated with anovulation (principal)
CPT/HCPCS: 36415; 83001; 83002; 84144

== ENCOUNTER 2023-05-27 14:06 | Outpatient (CLI) | payer BC, SELFPAY ==
[2023-05-28 08:20] LABS: Progesterone 8.5 ng/mL (.)
== END 2023-05-27 23:59 ==
LOC: LAB 14:07
PROVIDERS: PCP Physician Assistant; Visit Provider Obstetrics & Gynecology
DX: N97.0 Female infertility associated with anovulation (principal)
CPT/HCPCS: 36415; 84144

== ENCOUNTER 2023-06-11 14:13 | Outpatient (CLI) | payer BC, SELFPAY ==
[2023-06-12 15:51] LABS: LH 9.1 mIU/mL (.); Progesterone 0.2 ng/mL (.)
== END 2023-06-11 23:59 ==
LOC: LAB 14:14
PROVIDERS: PCP Physician Assistant; Visit Provider Obstetrics & Gynecology
DX: N97.0 Female infertility associated with anovulation (principal)
CPT/HCPCS: 36415; 83001; 83002; 84144

== ENCOUNTER 2023-06-18 15:02 | Outpatient (CLI) | payer BC, SELFPAY ==
--- NOTE | 2023-06-18 15:13 | US_ITS ---
PROCEDURE: US TRANSVAGINAL CLINICAL INDICATION: Follicle Scan/ Check COMPARISON: US US TRANSVAGINAL from 02/24/2023 FINDINGS: Transvaginal sonographic images of the pelvis were obtained. UTERUS: 6.4cm x 5.0cmx 4.4cm retroverted with a combined endometrial thickness of 9.4mm. LEFT OVARY: 2.8 cmx1.8 cmx1.2cm with a volume of 3.1ml. Follicle 1.: 0.61 cm Follicle 2.: 0.77 cm Follicle 3.: 0.49 cm Follicle 4.: 0.52 cm RIGHT OVARY: 5.0cmx 3.5 cmx3.6cm with a volume of 32ml. Follicle 1.: 2.01 Cm Follicle 2.: 0.67 cm Follicle 3.: 0.42 cm Follicle 4.: 0.66 cm Both ovaries are seen and appear normal. Doppler flow to both ovaries are seen. There is no fluid in the cul-de-sac. IMPRESSION: 1. Retroverted uterus normal in shape and size. 2. Both ovaries have multiple follicles. The right ovary has a dominant follicle measuring 2.01 cm. There is a small amount of free fluid around the right ovary. 3. Left ovary appears polycystic. 4. No fluid in the cul-de-sac Dictated by: Cheo Chirinos MD 06/20/2023 10:14 Cheo Chirinos MD in [facility] 06/20/2023 10:14
== END 2023-06-18 23:59 ==
LOC: RAD 15:02
PROVIDERS: PCP Physician Assistant; Visit Provider Obstetrics & Gynecology
DX: N97.0 Female infertility associated with anovulation (principal); E28.2 Polycystic ovarian syndrome
CPT/HCPCS: 76830

== ENCOUNTER 2023-06-30 14:49 | Outpatient (CLI) | payer BC, SELFPAY ==
[2023-07-01 10:59] LABS: FSH 4.6 mIU/mL (.); LH 11.4 mIU/mL (.); Progesterone 12.3 ng/mL (.)
== END 2023-06-30 23:59 ==
LOC: LAB 14:50
PROVIDERS: PCP Physician Assistant; Visit Provider Obstetrics & Gynecology
DX: E28.2 Polycystic ovarian syndrome (principal)
CPT/HCPCS: 36415; 83001; 83002; 84144

== ENCOUNTER 2023-07-21 16:41 | Outpatient (CLI) | payer BC, SELFPAY ==
[2023-07-21 18:04] LABS: HCG,Quantitative 3680 mIU/ml (0-5.42)
[2023-07-24 09:14] LABS: Progesterone 8.8 ng/mL (.)
== END 2023-07-21 23:59 | disposition home or self-care (01) ==
LOC: LAB 16:41
PROVIDERS: PCP Physician Assistant; Visit Provider Obstetrics & Gynecology
DX: Z32.00 Encounter for pregnancy test, result unknown (principal)
CPT/HCPCS: 36415; 84144; 84702

== ENCOUNTER 2023-07-26 14:53 | Outpatient (CLI) | payer BC, SELFPAY ==
--- NOTE | 2023-07-26 14:55 | US_ITS ---
PROCEDURE: US OB <= 14 WEEKS FETUS CLINICAL INDICATION: for dates COMPARISON: US US TRANSVAGINAL from 06/18/2023 FINDINGS: Transvaginal sonographic images of the pelvis were obtained. From her last menstrual period she is 6weeks 6days. An intrauterine gestational sac is present with a pole with a crown-rump length of 0.28cm This correlates to a gestational age of 6weeks 0 days. There is a suggestion that 2 sacs are present. Only 1 fetus was seen. heart tones are present but the rate was not able to be documented. Yolk sac is noted. The yolk sac measures 5.9mm. The right ovary is seen and appears normal. Corpus luteum is seen in the right ovary. The left ovary is seen and appears normal. There is trace fluid in the cul-de-sac. IMPRESSION: 1. Very early gestational age with a flicker of a heartbeat. 2. Fetus measures 6 weeks 0 days. 3. Both ovaries are seen and appear normal. The right ovary has a corpus luteum. 4. There is trace fluid in the cul-de-sac. 5. Suggest repeat ultrasound in 1 week. Dictated by: Cheo Chirinos MD 07/26/2023 21:21 Cheo Chirinos MD in [facility] 07/26/2023 21:21
== END 2023-07-26 23:59 | disposition home or self-care (01) ==
LOC: RAD 14:54
PROVIDERS: PCP Physician Assistant; Visit Provider Obstetrics & Gynecology
DX: O26.891 Other specified pregnancy related conditions, first trimester (principal); Z3A.01 Less than 8 weeks gestation of pregnancy
CPT/HCPCS: 76801

== ENCOUNTER 2023-08-03 10:15 | Outpatient (CLI) | payer BC, SELFPAY ==
--- NOTE | 2023-08-03 10:16 | US_ITS ---
PROCEDURE: US OB <= 14 WEEKS FETUS CLINICAL INDICATION: viability of pregnacy COMPARISON: No exams were available for comparison FINDINGS: Transvaginal sonographic images of the pelvis were obtained. From her last menstrual period she is 8weeks 0 days. An intrauterine gestational sac is present with a pole with a crown-rump length of 0.27cm This correlates to a gestational age of 6weeks 0 days. heart tones are not yet present. Rate could not be determined today. Yolk sac is noted. The yolk sac measures 3.9 mmmm. The right ovary is seen and appears normal. A corpus luteum appears to be present in the right ovary. The left ovary is seen and appears normal. There is no fluid in the cul-de-sac. IMPRESSION: 1. Intrauterine gestational sac with yolk sac and small pole seen. 2. heart tones could not be identified yet likely secondary to early gestational age. 3. Suggest repeat ultrasound in 1 week. 4. Both ovaries are seen appear normal. The right ovary looks to have a corpus luteum. 5. No fluid in the cul-de-sac. Dictated by: Cheo Chirinos MD 08/03/2023 14:00 Cheo Chirinos MD in [facility] 08/03/2023 14:00
[2023-08-03 12:08] LABS: Basophils # 0.1 K/mm3 (0-0.2); Basophils % 0.5 % (0.1-2.0); Eosinophils # 0.1 K/mm3 (0.0-0.4); Hematocrit 40.1 % (37.0-47.0); Hemoglobin 13.2 g/dL (12.2-16.2); Lymphocytes # 2.1 K/mm3 (0.7-4.5); Lymphocytes % 18.2 % (10-50); Mean Corpuscular HGB Conc 32.9 g/dL (31.8-35.4); Mean Corpuscular Hemoglobin 24.3 pg (27.0-31.2); Mean Corpuscular Volume 73.7 fl (81-99); Mean Platelet Volume 9.3 fl (7.4-10.4); Monocytes # 0.6 K/mm3 (0.1-1.0); Monocytes % 5.5 % (1.7-9.3); Neutrophils # 8.5 K/mm3 (1.8-7.8); Neutrophils % 74.7 % (37.0-80.0); Platelet Count 283 K/mm3 (142-424); Red Blood Count 5.43 M/mm3 (4.20-5.40); Red Cell Distribution Width 18.5 % (11.5-17.5); White Blood Count 11.4 K/mm3 (4.8-10.8)
[2023-08-03 12:31] LABS: Alanine Aminotransferase 32 U/L (12-78); Albumin Level 4.4 g/dl (3.5-5.0); Albumin/Globulin Ratio 1.5 (1.1-1.8); Alkaline Phosphatase 80 U/L (38-126); Aspartate Amino Transferase 34 U/L (14-36); Bilirubin,Total 0.6 mg/dl (0.2-1.3); Blood Urea Nitrogen 8 mg/dl (7-17); Calcium 9.8 mg/dl (8.4-10.2); Carbon Dioxide 22 mmol/L (22.0-30.0); Chloride 107 mmol/L (98-107); Estimated Glomerular Filt Rate 149 ml/min (>60); GFR (African American) 180 ML/MIN (>60); Globulin 2.9 g/dL (1.3-3.2); Glucose 121 mg/dl (74-100); Magnesium 1.8 mg/dl (1.6-2.3); Sodium 140 mmol/L (136-145); Total Protein,Serum 7.3 g/dl (6.3-8.2)
[2023-08-03 13:40] LABS: HCG,Quantitative 13907 mIU/ml (0-5.42)
== END 2023-08-03 23:59 | disposition home or self-care (01) ==
LOC: RAD 10:16
PROVIDERS: PCP Physician Assistant; Visit Provider Obstetrics & Gynecology
DX: O26.891 Other specified pregnancy related conditions, first trimester (principal); Z3A.01 Less than 8 weeks gestation of pregnancy
CPT/HCPCS: 76801; 80053; 83735; 84702; 85025

== ENCOUNTER 2023-08-10 14:33 | Outpatient (CLI) | payer BC, SELFPAY ==
[2023-08-10 16:36] LABS: HCG,Quantitative 13469 mIU/ml (0-5.42)
== END 2023-08-10 23:59 | disposition home or self-care (01) ==
LOC: LAB 14:34
PROVIDERS: PCP Physician Assistant; Visit Provider Obstetrics & Gynecology
DX: N97.0 Female infertility associated with anovulation (principal); Z32.00 Encounter for pregnancy test, result unknown
CPT/HCPCS: 36415; 84702

== ENCOUNTER 2023-08-12 10:29 | Outpatient (CLI) | payer BC, SELFPAY ==
--- NOTE | 2023-08-12 10:30 | US_ITS ---
PROCEDURE: US OB <= 14 WEEKS FETUS CLINICAL INDICATION: Repeat US to confirm viability /dates COMPARISON: US US OB <= 14 WEEKS FETUS from 08/03/2023 FINDINGS: Transvaginal sonographic images of the pelvis were obtained. From her last menstrual period she is 9weeks 2days. An intrauterine gestational sac is present with a pole with a crown-rump length of 0.29cm This correlates to a gestational age of 6weeks 0 days. heart tones are absent. Yolk sac is noted. The yolk sac measures 3.9mm. A small subchorionic hemorrhage is seen. The right ovary is seen and appears normal. Corpus luteum is seen in the right ovary. The left ovary is seen and appears normal. There is no fluid in the cul-de-sac. IMPRESSION: 1. There is an amnion and yolk sac seen. 2. A small crown-rump length is visualized. heart tones are not seen. 3. There has been no progression in growth. 4. A small subchorionic hemorrhage is still present. 5. Both left and right ovaries are seen and appear normal. Dictated by: Cheo Chirinos MD 08/12/2023 17:16 Cheo Chirinos MD in [facility] 08/12/2023 17:16
[2023-08-12 13:57] LABS: Basophils # 0.1 K/mm3 (0-0.2); Basophils % 0.8 % (0.1-2.0); Eosinophils # 0.1 K/mm3 (0.0-0.4); Eosinophils % 1.2 % (0.1-12.0); Hematocrit 39.4 % (37.0-47.0); Lymphocytes # 2.1 K/mm3 (0.7-4.5); Lymphocytes % 22.6 % (10-50); Mean Corpuscular HGB Conc 32.9 g/dL (31.8-35.4); Mean Platelet Volume 9.6 fl (7.4-10.4); Monocytes # 0.5 K/mm3 (0.1-1.0); Monocytes % 4.8 % (1.7-9.3); Neutrophils # 6.6 K/mm3 (1.8-7.8); Neutrophils % 70.5 % (37.0-80.0); Platelet Count 260 K/mm3 (142-424); Red Blood Count 5.19 M/mm3 (4.20-5.40); Red Cell Distribution Width 19.1 % (11.5-17.5); White Blood Count 9.3 K/mm3 (4.8-10.8)
[2023-08-12 14:49] LABS: Alanine Aminotransferase 33 U/L (12-78); Albumin Level 4.3 g/dl (3.5-5.0); Albumin/Globulin Ratio 1.5 (1.1-1.8); Alkaline Phosphatase 80 U/L (38-126); Anion Gap 15.2 mEq/L (5-15); Aspartate Amino Transferase 33 U/L (14-36); Bilirubin,Total 0.5 mg/dl (0.2-1.3); Blood Urea Nitrogen 8 mg/dl (7-17); Calcium 9.2 mg/dl (8.4-10.2); Carbon Dioxide 25 mmol/L (22.0-30.0); Chloride 103 mmol/L (98-107); Estimated Glomerular Filt Rate 121 ml/min (>60); GFR (African American) 146 ML/MIN (>60); Globulin 2.9 g/dL (1.3-3.2); Glucose 113 mg/dl (74-100); Potassium 4.2 mmoL/L (3.5-5.1); Sodium 139 mmol/L (136-145); Total Protein,Serum 7.2 g/dl (6.3-8.2)
== END 2023-08-12 23:59 | disposition home or self-care (01) ==
PROVIDERS: PCP Physician Assistant; Visit Provider Obstetrics & Gynecology
DX: O36.80X0 Pregnancy with inconclusive fetal viability, not applicable or unspecified (principal); O02.1 Missed abortion
CPT/HCPCS: 36415; 76801; 80053; 85025; 86850

== ENCOUNTER 2023-08-13 10:26 | Day surgery (SDC) | payer BC, SELFPAY ==
[2023-08-13] VITALS (11 sets, daily range): BP systolic 113–156; BP diastolic 60–87; PULSE 76–114; RESP 12–18; TEMP 36.6–36.7; O2SAT 96–100; BMI 44.9
[2023-08-13] MEDS: LACTATED RINGERS 1000ML 1,000 ML 25 ML IV (11:09)
[2023-08-13] MEDS: DOXYCYCLINE HYCL 100 MG TABLET 200 MG PO (11:09)
--- NOTE | 2023-08-13 11:45 | EXP.ANES.CKL ---
[facility] Disclaimer: The information contained in this section may have been updated after the patient was seen, as this information can be updated by other users. Medical History PCOS (polycystic ovarian syndrome) Cryptic tonsil Tonsil stone Serous otitis media Family history of thyroid cancer Anxiety and depression Numbness and tingling of both feet Hypothyroidism Surgical History History of hysteroscopy Status post tonsillectomy Hx of breast surgery History of wisdom tooth extraction, class IV edentulism Family History Family/Other Cancer Other Family history of diabetes mellitus type II Thyroid cancer Social History Smoking Status: Never smoker alcohol intake: never substance use type: denies use current occupational status: unemployed Travel in the last 8 weeks: None household members: spouse housing: house marital status: education level: high school service: No half-way: No caffeine: Yes special prince needs: No agree to transfusion: No do you feel safe at home: Yes victim of physical abuse: No victim of emotional abuse: No victim of sexual abuse: No would you like helpful sources: No [facility] Anesthesia Checklist Patient Identification Patient Identification: Arm Band and Verbal (Name & ) Structural Data Admitted From: Home Planned Operative Procedure/s: D & C Consent for Planned Operative Procedure(s) Verified: Yes Verified Documents: Surgical Consent NPO Status Verified Time NPO: 00:00 Chart Verification Results Verified: CBC and BMP Additional verifications Anesthesia Reactions: Yes (nausea and vomiting) Hx Blood Transfusions: No Blood Transfusion Reaction: No Airway Assessment Mallampati Score:: Class II C-Spine Mobility Assessed: Yes TMJ Mobility Assessed: Yes Dentition: Good Dentition Neurological Assessment Level of Consciousness: Awake Hx Seizures: No Numbness or tingling in extremities: No Anesthesia Plan Anesthesia Risk discussed: Yes Anesthesia Plan: Verified ASA Class: III Anesthesia Type: General
--- NOTE | 2023-08-13 12:50 | EXP.ANES.I ---
[facility] Anesthesia Record Part I Anesthesia Record I Intake, IV Amount: 800 Hydration: Adequate Estimated blood loss (mL): 50 Urine output (mL): 50 Blood Pressure: 128/60 SaO2: 100 Pulse Rate: 112 Airway Patency: Patent Respiratory Rate: 12 Temperature: 98 F Patient is:: Drowsy Stable to PACU at:: 12:45
--- NOTE | 2023-08-13 13:42 | P.OP_ITS ---
Date of procedure: 08/13/23 Pre-op Diagnosis:: 1. 6weeks spontaneous 2. Desires surgical management 3. Rh+ Post-op Diagnosis:: 1. 6weeks spontaneous 2. Desires surgical management 3. Rh+ Procedure performed:: Dilation and suction curettage Surgeon:: Leisa Patel DO WATCH TRAIN INSPECTOR:: Abner Haque Anesthesia: MAC Estimated blood loss (mL): 50 Clinical Note:: Complications: None Operative findings:: Normal-appearing external genitalia. Closed cervical os without bleeding. Operative note:: Kashmir Martinez is a 28-year-old G1, P0 who we have been following with a positive test since 07/21/2023. We have followed for greater than 10 days with no development or progression on the ultrasound and also a decreasing beta hCG level. She was diagnosed with a spontaneous SAB at 6 weeks gestation, although she should be approximately 9 to 10 weeks gestation. Expectant, medical, and surgical management were reviewed with the patient in detail and she elected for surgical management. Risk benefits were reviewed in detail and she voiced understanding. Specifically I discussed the risk of bleeding, infection, uterine perforation, and Asherman syndrome. Medications: Doxycycline 200 mg The patient was taken back to the operating room where anesthesia was administered. She was placed in the dorsolithotomy position with yellowfin stirrups and sterilely prepped and draped with Betadine in the usual fashion. In and out catheter was used to drain her bladder. Weighted speculum and a right angle retractor was used to visualize the cervix. A single-tooth tenaculum applied to the anterior lip cervix. Syed dilators were used to dilate the cervix to accommodate a #7 rigid suction curette. The suction curette was inserted to the fundus, hooked to suction, and twisted in a clockwise fashion until the curette was removed. Products noted in the tubing system. This process was repeated until all uterine contents were removed. #3 sharp curette was used to curette the outer braga of the endometrium and curettings were collected on Telfa pad to be sent to pathology. Uterine cry was noted diffusely. Following this careful attention was given to the bleeding from the cervical os and was noted to be minimal. The single-tooth tenaculum was removed and hemostasis was noted. The speculum was removed and this completed the procedure. The patient tolerated the procedure well and all instrument and sponge counts were correct x2. The patient was awakened from general anesthesia and taken to the recovery room in a stable condition. The patient will be sent home after meeting all discharge criteria and follow-up with me in 2 weeks. Condition: stable Disposition: PACU Specimens:: Products of conception Complications:: None
--- NOTE | 2023-08-13 14:05 | EXP.ANES.II ---
[facility] Anesthesia Record Part II Anesthesia Record Part II Discharge Time: 13:15 Destination: Surgical Day Care (OP Surgery) PACU nurse assessment reviewed?: Yes Patient Condition:: Good Anesthesia Complications:: None Swallowing reflex intact?: Yes Airway Patency: Patent Cyanosis?: No Blood Pressure: 156/87 SaO2: 100 Respiratory Rate: 18 Pulse Rate: 95 Temperature: 98 F Mental Status: Alert & Oriented Pain level:: 0 Nausea and/or vomitting:: None Intake, IV Amount: 0 Hydration: Adequate
== END 2023-08-13 14:13 | disposition home or self-care (01) ==
PROVIDERS: PCP Physician Assistant; Visit Provider Obstetrics & Gynecology
PROC: (CPT 59812; principal; 2023-08-13 12:00)
DX: O03.4 Incomplete spontaneous abortion without complication (principal)
CPT/HCPCS: 59812; J2405

== ENCOUNTER 2023-11-24 15:13 | Outpatient (CLI) | payer BC, SELFPAY ==
[2023-11-24 16:38] LABS: HCG,Quantitative 18 mIU/ml (0-5.42)
[2023-11-26 08:20] LABS: Progesterone 18.2 ng/mL (.)
== END 2023-11-24 23:59 | disposition home or self-care (01) ==
LOC: LAB 15:15
PROVIDERS: PCP Physician Assistant; Visit Provider Obstetrics & Gynecology
DX: N92.6 Irregular menstruation, unspecified (principal)
CPT/HCPCS: 36415; 84144; 84702

== ENCOUNTER 2023-11-29 14:08 | Outpatient (CLI) | payer BC, SELFPAY ==
[2023-11-29 15:34] LABS: HCG,Quantitative 87 mIU/ml (0-5.42)
[2023-12-01 14:16] LABS: FSH 0.6 mIU/mL (.); Progesterone 17.1 ng/mL (.)
== END 2023-11-29 23:59 | disposition home or self-care (01) ==
LOC: LAB 14:08
PROVIDERS: PCP Physician Assistant; Visit Provider Obstetrics & Gynecology
DX: Z79.811 Long term (current) use of aromatase inhibitors (principal); Z3A.01 Less than 8 weeks gestation of pregnancy; O36.80X0 Pregnancy with inconclusive fetal viability, not applicable or unspecified; Z80.3 Family history of malignant neoplasm of breast
CPT/HCPCS: 83001; 83002; 84144; 84702

== ENCOUNTER 2023-12-01 15:58 | Outpatient (CLI) | payer BC, SELFPAY ==
[2023-12-01 16:45] LABS: HCG Qualitative, Serum Positive (Negative)
[2023-12-01 18:17] LABS: HCG,Quantitative 140 mIU/ml (0-5.42)
== END 2023-12-01 23:59 | disposition home or self-care (01) ==
LOC: LAB 15:58
PROVIDERS: PCP Physician Assistant; Visit Provider Obstetrics & Gynecology
DX: Z34.90 Encounter for supervision of normal pregnancy, unspecified, unspecified trimester (principal)
CPT/HCPCS: 36415; 84702; 84703

== ENCOUNTER 2023-12-12 17:07 | Emergency (ER) | payer BC, SELFPAY ==
[2023-12-12 17:08] VITALS: BP 158/106; PULSE 111; RESP 18; TEMP 36.9; O2SAT 98; BMI 44.9
--- NOTE | 2023-12-12 17:11 | HMH.EDGENADL ---
Discharge Plan Disposition Patient Disposition: Home, Self-Care Condition: Good Prescriptions Prescriptions: No Action phentermine [Adipex-P] 37.5 mg tablet 37.5 mg PO DAILY Qty: 30 0RF Rx Instructions: must administer 30 minutes before or 1-2 hours after breakfast norgestimate-ethinyl estradiol [Sprintec (28)] 0.25-35 mg-mcg tablet 1 tab PO DAILY Qty: 84 0RF Classic 28 mg iron- 800 mcg tablet 1 tab PO DAILY Qty: 30 11RF fluticasone propionate [Flonase Allergy Relief] 50 mcg/actuation spray,suspension 1 spray intranasal DAILY Rx Instructions: administer into each nostril albuterol sulfate 1.25 mg/3 mL solution for nebulization 1.25 mg inhalation NEEDED PRN (Reason: shortness of breath or wheezing) ibuprofen 800 mg tablet 800 mg PO Q8H PRN (Reason: pain) Qty: 60 2RF Referrals Follow up/Referrals: Taylor Olson PA [Primary Care Provider] - See instructions Activity Restrictions/Add. Instructions Additional Instructions/Restrictions: Please call Dr. Contreras's office in the morning and for your follow-up appointment. Return to ER for any worsening signs or symptoms as needed Clinical Impressions Clinical Impression: Vaginal bleeding Stand Alone Forms Stand Alone Forms: Work/School Release Print Language Print Language: Uzbek Discharge ED Provider: Doyle Braxton General Adult HPI <SHELDON Palmer - Last Filed: 12/12/23 21:05> General Chief complaint: Urogenital-Female Stated complaint: 5 wks , bleeding Time Seen by Provider: 12/12/23 17:11 History of Present Illness HPI narrative: Patient presents for evaluation of abdominal cramping and vaginal bleeding. Patient is approximately 5 weeks and woke up this morning with abdominal cramping and vaginal bleeding. She has gone through 2 pads already however she states her bleeding is not that heavy. She is Ab1 follows with Dr. Patel Related Data Home Medications ?Medication ?Instructions ?Recorded ?Confirmed fluticasone propionate 50 1 spray intranasal DAILY allergies 08/03/22 11/19/23 mcg/actuation nasal spray,suspension (Flonase Allergy Relief) albuterol sulfate 1.25 mg/3 mL 1.25 mg inhalation NEEDED PRN 03/09/23 11/19/23 solution for nebulization shortness of breath or wheezing Previous Rx's ?Medication ?Instructions ?Recorded ibuprofen 800 mg tablet 800 mg PO Q8H PRN pain #60 tabs 08/13/23 norgestimate 0.25 mg-ethinyl 1 tab PO DAILY #84 tabs 11/19/23 estradiol 35 mcg tablet (Sprintec (28)) phentermine 37.5 mg tablet 37.5 mg PO DAILY #30 tabs 11/19/23 (Adipex-P) vits no.126-ferrous fum 1 tab PO DAILY #30 tabs 11/26/23 28 mg iron-folic acid 800 mcg tablet (Classic ) Allergies Allergy/AdvReac Type Severity Reaction Status Date / Time bee venom protein (honey bee) Allergy Verified 11/19/23 14:11 [facility] [place] <SHELDON Palmer - Last Filed: 12/12/23 21:05> [facility] [place] Disclaimer: The information contained in this section may have been updated after the patient was seen, as this information can be updated by other users. Medical History PCOS (polycystic ovarian syndrome) Cryptic tonsil Tonsil stone Serous otitis media Family history of thyroid cancer Anxiety and depression Numbness and tingling of both feet Hypothyroidism Surgical History Hx of dilation and curettage History of hysteroscopy with dilation, polypectomy Status post tonsillectomy Hx of breast surgery left fibroid tumor History of wisdom tooth extraction, class IV edentulism Family History Family/Other Cancer breast Other Family history of diabetes mellitus type II Thyroid cancer Social History Smoking Status: Never smoker alcohol intake: never substance use type: denies use current occupational status: unemployed Travel in the last 8 weeks: None household members: spouse housing: house marital status: education level: high school service: No senior living: No caffeine: Yes special prince needs: No agree to transfusion: No do you feel safe at home: Yes victim of physical abuse: No victim of emotional abuse: No victim of sexual abuse: No would you like helpful sources: No <SHELDON Palmer - Last Filed: 12/12/23 21:05> ROS Obtained: Yes Systems reviewed as appropriate & no additional complaints except as documented Physical Exam <SHELDON Palmer - Last Filed: 12/12/23 21:05> General General appearance: alert and in no apparent distress Respiratory Respiratory exam: Present normal lung sounds bilaterally Cardiovascular Cardiovascular exam: Present regular rate Neurological Exam Neurological exam: Present alert and oriented X3 Medical Decision Making <SHELDON Palmer - Last Filed: 12/12/23 21:05> Medical Records Medical records reviewed: Yes I reviewed the patient's medical records. Yvan Inquiry Pt receiving controlled substance: No Vital Signs: 12/12/23 17:08 12/12/23 19:26 Temperature 98.4 F 97.9 F Temperature Source Oral Pulse Rate 94 H Pulse Rate [Right] 111 H Respiratory Rate 18 18 Blood Pressure 129/70 Blood Pressure [Right Arm] 158/106 H Blood Pressure Mean [Right Arm] 123 02 Sat by Pulse Oximetry 98 Lab Data Lab results reviewed: Yes I reviewed the patient's lab results. Lab Results 12/12/23 17:30: WBC 10.4, RBC 5.62 H, Hgb 15.0, Hct 47.2 H, MCV 84.0, MCH 26.7 L, MCHC 31.8, RDW 16.4, Plt Count 281, MPV 10.2, Neut % (Auto) 63.9, Lymph % (Auto) 26.9, [place] % (Auto) 6.7, Eos % (Auto) 1.6, Baso % (Auto) 0.9, Neut # (Auto) 6.6, Lymph # (Auto) 2.8, [place] # (Auto) 0.7, Eos # (Auto) 0.2, Baso # (Auto) 0.1, Serum HCG, Qual Negative, HCG, Quant 19 H 12/12/23 17:30 Orders (Tests/Meds): ED MEDICATIONS Discontinued Medications Generic Name Dose Route Start Last Admin Trade Name Freq PRN Reason Stop Dose Admin Acetaminophen 1,000 mg 12/12/23 19:21 12/12/23 19:26 Acetaminophen 500mg Tab PO 12/12/23 19:22 1,000 mg ONCE ONE Administration Ibuprofen 800 mg 12/12/23 19:21 12/12/23 19:26 Ibuprofen 400 Mg Tablet PO 12/12/23 19:22 Not Given ONCE ONE ORDERS Category Date Time Status CBC w/Auto Diff [Complete Blood Count Auto Diff] Stat Lab 12/12/23 17:30 Completed HCG Qualitative, Serum Stat Lab 12/12/23 17:30 Completed HCG,Quantitative Stat Lab 12/12/23 17:30 Completed Medical Decision Narrative: In summary patient is a 28-year-old female who presents to the emergency department for evaluation of vaginal bleeding abdominal cramping and 5 weeks . Patient is hemodynamically stable upon arrival, afebrile. Physical exam is remarkable for mild abdominal tenderness to palpation in the suprapubic area without rebound or guarding or rigidity. Bowel sounds normoactive. Differential diagnosis includes threatened versus complication. Initial workup will be conducted with hematologic labs urinalysis serum hCG and possibly transvaginal ultrasound. Initial interventions include Tylenol initially. Initial workup reviewed by me shows that her serum hCG has declined from 140-19 however H&H is stable. Given this I had an interactive discussion with Dr. Patel regarding patient management and she wants to see the patient in her office this week. Given this I had a interact discussion with the patient informed her of the results and that she is appropriate for discharge with strict return precautions. <Doyle Braxton MD - Last Filed: 12/12/23 21:48> Vital Signs: 12/12/23 17:08 12/12/23 19:26 Temperature 98.4 F 97.9 F Temperature Source Oral Pulse Rate 94 H Pulse Rate [Right] 111 H Respiratory Rate 18 18 Blood Pressure 129/70 Blood Pressure [Right Arm] 158/106 H Blood Pressure Mean [Right Arm] 123 02 Sat by Pulse Oximetry 98 Lab Data Lab Results 12/12/23 17:30: WBC 10.4, RBC 5.62 H, Hgb 15.0, Hct 47.2 H, MCV 84.0, MCH 26.7 L, MCHC 31.8, RDW 16.4, Plt Count 281, MPV 10.2, Neut % (Auto) 63.9, Lymph % (Auto) 26.9, [place] % (Auto) 6.7, Eos % (Auto) 1.6, Baso % (Auto) 0.9, Neut # (Auto) 6.6, Lymph # (Auto) 2.8, [place] # (Auto) 0.7, Eos # (Auto) 0.2, Baso # (Auto) 0.1, Serum HCG, Qual Negative, HCG, Quant 19 H Orders (Tests/Meds): ED MEDICATIONS Discontinued Medications Generic Name Dose Route Start Last Admin Trade Name Rashi PRN Reason Stop Dose Admin Acetaminophen 1,000 mg 12/12/23 19:21 12/12/23 19:26 Acetaminophen 500mg Tab PO 12/12/23 19:22 1,000 mg ONCE ONE Administration Ibuprofen 800 mg 12/12/23 19:21 12/12/23 19:26 Ibuprofen 400 Mg Tablet PO 12/12/23 19:22 Not Given ONCE ONE ORDERS Category Date Time Status CBC w/Auto Diff [Complete Blood Count Auto Diff] Stat Lab 12/12/23 17:30 Completed HCG Qualitative, Serum Stat Lab 12/12/23 17:30 Completed HCG,Quantitative Stat Lab 12/12/23 17:30 Completed Medical Decision Narrative: In summary patient is a 28-year-old female who presents to the emergency department for evaluation of vaginal bleeding abdominal cramping and 5 weeks . Patient is hemodynamically stable upon arrival, afebrile. Physical exam is remarkable for mild abdominal tenderness to palpation in the suprapubic area without rebound or guarding or rigidity. Bowel sounds normoactive. Differential diagnosis includes threatened versus complication. Initial workup will be conducted with hematologic labs urinalysis serum hCG and possibly transvaginal ultrasound. Initial interventions include Tylenol initially. Initial workup reviewed by me shows that her serum hCG has declined from 140-19 however H&H is stable. Given this I had an interactive discussion with Dr. Patel regarding patient management and she wants to see the patient in her office this week. Given this I had a interact discussion with the patient informed her of the results and that she is appropriate for discharge with strict return precautions. I was consulted by the MEREDTIH, and we discussed the complexity of the problems being addressed. I approved the treatment and management plan for this patient's care in the Emergency Department, thus performing a substantive portion of the medical decision making. Doyle Braxton MD Critical Care <SHELDON Palmer - Last Filed: 12/12/23 21:05> Critical Care Time Critical Care Time: No
[2023-12-12 17:53] LABS: HCG Qualitative, Serum Negative (Negative)
--- NOTE | 2023-12-12 17:53 | PC.NURSE ---
Called radiology to notify them of tvus order. States u/s yamilka Muñiz will be here @ 1800
[2023-12-12 18:21] LABS: HCG,Quantitative 19 mIU/ml (0-5.42)
[2023-12-12 18:45] LABS: Basophils # 0.1 K/mm3 (0-0.2); Basophils % 0.9 % (0.1-2.0); Eosinophils # 0.2 K/mm3 (0.0-0.4); Eosinophils % 1.6 % (0.1-12.0); Hematocrit 47.2 % (37.0-47.0); Lymphocytes # 2.8 K/mm3 (0.7-4.5); Lymphocytes % 26.9 % (10-50); Mean Corpuscular HGB Conc 31.8 g/dL (31.8-35.4); Mean Corpuscular Hemoglobin 26.7 pg (27.0-31.2); Mean Platelet Volume 10.2 fl (7.4-10.4); Monocytes # 0.7 K/mm3 (0.1-1.0); Monocytes % 6.7 % (1.7-9.3); Neutrophils # 6.6 K/mm3 (1.8-7.8); Neutrophils % 63.9 % (37.0-80.0); Platelet Count 281 K/mm3 (142-424); Red Blood Count 5.62 M/mm3 (4.20-5.40); Red Cell Distribution Width 16.4 % (11.5-17.5); White Blood Count 10.4 K/mm3 (4.8-10.8)
[2023-12-12 19:26] VITALS: BP 129/70; PULSE 94; RESP 18; TEMP 36.6; O2SAT 99
[2023-12-12] MEDS: ACETAMINOPHEN 500MG TAB 1000 MG PO (19:26)
== END 2023-12-12 19:31 | disposition home or self-care (01) ==
PROVIDERS: Physician Assistant; Emergency Provider Emergency Medicine; PCP Physician Assistant
DX: O20.9 Hemorrhage in early pregnancy, unspecified (principal); R25.2 Cramp and spasm; Z3A.01 Less than 8 weeks gestation of pregnancy
CPT/HCPCS: 84702; 84703; 85025; 99283

== ENCOUNTER 2024-03-09 15:06 | Outpatient (CLI) | payer BC, SELFPAY ==
[2024-03-09 15:47] LABS: Basophils # 0.1 K/mm3 (0-0.2); Basophils % 1.3 % (0.1-2.0); Eosinophils # 0.2 K/mm3 (0.0-0.4); Eosinophils % 2.2 % (0.1-12.0); Hematocrit 46.3 % (37.0-47.0); Hemoglobin 15.8 g/dL (12.2-16.2); Lymphocytes # 2.6 K/mm3 (0.7-4.5); Lymphocytes % 26.6 % (10-50); Mean Corpuscular HGB Conc 34.1 g/dL (31.8-35.4); Mean Corpuscular Hemoglobin 27.8 pg (27.0-31.2); Mean Corpuscular Volume 81.5 fl (81-99); Mean Platelet Volume 9.9 fl (7.4-10.4); Monocytes # 0.6 K/mm3 (0.1-1.0); Monocytes % 6.2 % (1.7-9.3); Neutrophils # 6.2 K/mm3 (1.8-7.8); Neutrophils % 63.7 % (37.0-80.0); Platelet Count 296 K/mm3 (142-424); Red Blood Count 5.68 M/mm3 (4.20-5.40); Red Cell Distribution Width 15.5 % (11.5-17.5); White Blood Count 9.7 K/mm3 (4.8-10.8)
[2024-03-09 16:22] LABS: Alanine Aminotransferase 56 U/L (12-78); Albumin/Globulin Ratio 1.7 (1.1-1.8); Alkaline Phosphatase 103 U/L (38-126); Anion Gap 14.3 mEq/L (5-15); Aspartate Amino Transferase 45 U/L (14-36); Bilirubin,Total 0.6 mg/dl (0.2-1.3); Blood Urea Nitrogen 15 mg/dl (7-17); Calcium 9.9 mg/dl (8.4-10.2); Carbon Dioxide 26 mmol/L (22.0-30.0); Chloride 105 mmol/L (98-107); Chol/HDL Ratio 5.6 (1-3.5); Cholesterol 192 mg/dl (140-200); Estimated Glomerular Filt Rate 120 ml/min (>60); GFR (African American) 145 ML/MIN (>60); Globulin 2.9 g/dL (1.3-3.2); Glucose 112 mg/dl (74-100); HDL Cholesterol 34 mg/dl (40-60); Potassium 4.3 mmoL/L (3.5-5.1); Sodium 141 mmol/L (136-145); Total Protein,Serum 7.9 g/dl (6.3-8.2); Triglycerides 169 mg/dl (30-150); VLDL Cholesterol 34 mg/dL (0-40)
[2024-03-09 16:33] LABS: Direct LDL Cholesterol 135.81 mg/dL (100-129); Hemoglobin A1C 5.1 % (4.0-6.0)
[2024-03-09 16:39] LABS: 25-OH Vitamin D, Total 18.3 ng/mL (30-100)
[2024-03-09 16:53] LABS: Thyroid Stimulating Hormone 3.91 uIU/mL (0.465-4.68)
[2024-03-09 21:12] LABS: HIV (1&2) Antibody Rapid NONREACTIVE (NONREACTIVE); Iron 61 ug/dL (37-170)
[2024-03-09 21:22] LABS: Total Iron Binding Capacity 455 ug/dL (265-497)
[2024-03-09 21:49] LABS: Ferritin 23.6 ng/ml (6.24-137)
[2024-03-10 05:11] LABS: HCV Ab Non Reactive (Non Reactive)
[2024-03-22 09:02] LABS: Miscellaneous Test SCANNED IMAGE
== END 2024-03-09 23:59 | disposition home or self-care (01) ==
PROVIDERS: PCP Student in an Organized Health Care Education/Training Program; Referring Provider Obstetrics & Gynecology; Visit Provider Student in an Organized Health Care Education/Training Program
DX: Z13.220 Encounter for screening for lipoid disorders (principal); E55.9 Vitamin D deficiency, unspecified; Z11.59 Encounter for screening for other viral diseases; Z11.4 Encounter for screening for human immunodeficiency virus [HIV]; N93.9 Abnormal uterine and vaginal bleeding, unspecified; E03.9 Hypothyroidism, unspecified; E28.2 Polycystic ovarian syndrome; E66.9 Obesity, unspecified; Z68.42 Body mass index [BMI] 45.0-49.9, adult
CPT/HCPCS: 36415; 80050; 80053; 80061; 82306; 82728; 83036; 83540; 83550; 84443; 85025; 86803; 87389

== ENCOUNTER 2024-03-20 15:02 | Outpatient (CLI) | payer BC, SELFPAY ==
[2024-03-20 17:32] LABS: Coronavirus 19, PCR Not Detected (NotDetected); Influenza A, PCR Not Detected (NotDetected); Influenza B, PCR Not Detected (NotDetected)
== END 2024-03-20 23:59 | disposition home or self-care (01) ==
LOC: LAB.DROPOF 03-21 10:33
PROVIDERS: PCP Student in an Organized Health Care Education/Training Program; Visit Provider Student in an Organized Health Care Education/Training Program
DX: J02.9 Acute pharyngitis, unspecified (principal); R50.9 Fever, unspecified
CPT/HCPCS: 87070; 87636

== ENCOUNTER 2024-06-14 13:59 | Outpatient (CLI) | payer BC, SELFPAY ==
[2024-06-15 08:48] LABS: Progesterone 14.5 ng/mL (.)
== END 2024-06-14 23:59 | disposition home or self-care (01) ==
LOC: LAB 13:59
PROVIDERS: Visit Provider Obstetrics & Gynecology
DX: Z79.811 Long term (current) use of aromatase inhibitors (principal)
CPT/HCPCS: 36415; 84144

== ENCOUNTER 2024-09-26 14:37 | Outpatient (CLI) | payer BC, SELFPAY ==
[2024-09-26 17:15] LABS: HCG,Quantitative 82 mIU/ml (0-5.42)
[2024-09-27 08:28] LABS: Progesterone 6.3 ng/mL (.)
== END 2024-09-26 23:59 | disposition home or self-care (01) ==
LOC: LAB 14:38
PROVIDERS: Visit Provider Obstetrics & Gynecology
DX: Z32.01 Encounter for pregnancy test, result positive (principal)
CPT/HCPCS: 36415; 84144; 84702

== ENCOUNTER 2024-09-28 14:38 | Outpatient (CLI) | payer BC, SELFPAY ==
[2024-09-28 16:03] LABS: HCG,Quantitative 145 mIU/ml (0-5.42)
== END 2024-09-28 23:59 | disposition home or self-care (01) ==
LOC: LAB 14:39
PROVIDERS: Visit Provider Obstetrics & Gynecology
DX: O36.80X0 Pregnancy with inconclusive fetal viability, not applicable or unspecified (principal); Z3A.00 Weeks of gestation of pregnancy not specified
CPT/HCPCS: 36415; 84702

== ENCOUNTER 2024-10-02 14:19 | Outpatient (CLI) | payer BC, SELFPAY ==
[2024-10-02 16:04] LABS: HCG,Quantitative 194 mIU/ml (0-5.42)
== END 2024-10-02 23:59 | disposition home or self-care (01) ==
LOC: LAB 14:20
PROVIDERS: Visit Provider Obstetrics & Gynecology
DX: O03.9 Complete or unspecified spontaneous abortion without complication (principal)
CPT/HCPCS: 36415; 84702

== ENCOUNTER 2024-10-09 14:25 | Outpatient (CLI) | payer BC, SELFPAY ==
--- OUTSIDE RECORDS SUMMARY | 2024-10-09 14:28 | XMS_ITS ---
Author Organization Unknown Patient Care team information Name Category Status Period Participants - - Proposed period not known -
== END 2024-10-09 23:59 | disposition home or self-care (01) ==
LOC: LAB 14:26
PROVIDERS: Visit Provider Obstetrics & Gynecology
DX: O03.9 Complete or unspecified spontaneous abortion without complication (principal)
CPT/HCPCS: 36415; 84702

== ENCOUNTER 2024-10-11 12:10 | Emergency (ER) | payer BC, SELFPAY ==
[2024-10-11 12:14] VITALS: BP 166/90; PULSE 104; RESP 18; O2SAT 100
[2024-10-11 12:20] VITALS: BP 166/90; PULSE 111; RESP 18; O2SAT 100; BMI 44.9
--- NOTE | 2024-10-11 12:27 | US_ITS ---
PROCEDURE INFORMATION: Exam: US Pelvis, Transvaginal, Non-Obstetric Exam date and time: 10/11/2024 12:34 PM Age: 29 years old Clinical indication: Pelvic pain; Additional info: Downtrending hcg, severe cramping pain and bleedin TECHNIQUE: Imaging protocol: Real-time transvaginal pelvic (non-obstetric) ultrasound with image documentation. Transvaginal imaging was used for better evaluation of the endometrium, adnexa, and/or cervix. COMPARISON: US TRANSVAGINAL 06/18/2023 3:23 PM FINDINGS: Uterus: No intrauterine gestation. No evidence of retained products of conception. No intrauterine gestation. No fluid. Right ovary/adnexa: 2 x 3 x 3 cm. Numerous follicles. Doppler arterial flow. Left ovary/adnexa: 1.7 x 3.3 x 1.8 cm. Follicles. Doppler arterial flow. Urinary bladder: Urinary bladder is limited. Intraperitoneal space: Small amount of fluid in the cul-de-sac. IMPRESSION: 1. No intrauterine gestation. No evidence of retained products of conception. 2. Small amount of fluid in the cul-de-sac.
--- NOTE | 2024-10-11 12:29 | ED_ITS ---
Discharge Plan Disposition Patient Disposition: Home, Self-Care Prescriptions Prescriptions: New acetaminophen 500 mg capsule 1,000 mg PO Q6H PRN (Reason: pain) Qty: 80 0RF ibuprofen 800 mg tablet 800 mg PO Q8H PRN (Reason: pain) Qty: 18 0RF No Action promethazine 12.5 mg tablet 12.5 mg PO Q6H PRN (Reason: nausea and vomiting) Qty: 60 2RF progesterone micronized [Prometrium] 200 mg capsule 200 mg vaginal HS Qty: 30 1RF Rx Instructions: insert vaginally every night at bedtime Referrals Follow up/Referrals: Provider,Referral, MD [Primary Care Provider, Medical] - See instructions Activity Restrictions/Add. Instructions Additional Instructions/Restrictions: At this time it was felt you are safe to be discharged home. If new or worsening symptoms please do not hesitate to return the emergency department. Please take ibuprofen and Tylenol as prescribed and follow-up with Dr. Patel later this week or early next week. Clinical Impressions Clinical Impression: Complete miscarriage Print Language Print Language: [place] Discharge ED Provider: Oj Rust General Adult HPI General Chief complaint: OB/Uterine Contractions Stated complaint: 5 weeks , poss miscarriag Time Seen by Provider: 10/11/24 12:15 Mode of Arrival: Ambulatory Source of Information: Patient Description of Symptoms (Recalled from ER Triage Doc. by RN): Patient reports she is actively having a miscarriage. Pt reports she had the blood work done on wednesday to confirm. Pt reports this is her 3rd miscarriage within a year. Pt reports severe cramping and heavy bleeding. Pt reports this miscarriage is unlike the other 2 previous ones but she did have d&c with the last two as well. Pt was advised by her OB doctor, Dr. Patel, to come in and be evaluated in the ED. History of Present Illness HPI narrative: Patient is a 29-year-old female G3, P0 EGA little over 5 weeks who presents emergency department for evaluation of suspected miscarriage. Patient has had 1 miscarriage requiring D&C, 1 spontaneous miscarriage and is currently having vaginal bleeding with a downtrending hCG for which she follows with Dr. Patel consistent with miscarriage. She has had severe crampy lower abdominal pain and passing clots with vaginal bleeding 1-2 pads an hour since Wednesday. Ultimately this be caused her to become concerned and presented here for continued evaluation. No history of anticoagulants or bleeding diathesis. Patient has had a previous D&C for her PCOS as well. Blood type O+. Please note that above description of symptoms, in this electronic medical record under categorization of recalled from ER triage doctor by RN are reflective of an initial nursing assessment, however, is not reflective of my full history and physical exam that was personally taken and clarified. Consequentially, this preceding description of symptoms, which may include the patient's categorized chief complaint in the EMR, do not reflect my personal clinical impression, and the ultimate description of history of present illness and patient stated complaints should be deferred to this section of the note. Unless stated otherwise or congruent with this section of the note, additional signs, symptoms, or incongruence should be interpreted as inaccurate with my clinical impression. Related Data Previous Rx's ?Medication ?Instructions ?Recorded progesterone micronized 200 mg 200 mg vaginal HS #30 c aps 09/27/24 capsule (Prometrium) promethazine 12.5 mg tablet 12.5 mg PO Q6H PRN nausea and 09/27/24 vomiting #60 tabs acetaminophen 500 mg capsule 1,000 mg (2 x 500 mg) PO Q6H PRN 10/11/24 pain #80 caps ibuprofen 800 mg tablet 800 mg PO Q8H PRN pain #18 t abs 10/11/24 Allergies Allergy/AdvReac Type Severity Reaction Status Date / Time bee venom protein (honey bee) Allergy Verified 10/03/24 14:52 [facility] Disclaimer: The information contained in this section may have been updated after the patient was seen, as this information can be updated by other users. Medical History of unknown anatomic location PCOS (polycystic ovarian syndrome) Cryptic tonsil Tonsil stone Serous otitis media Family history of thyroid cancer Anxiety and depression Numbness and tingling of both feet Hypothyroidism Surgical History Hx of dilation and curettage History of hysteroscopy with dilation, polypectomy Status post tonsillectomy Hx of breast surgery left fibroid tumor History of wisdom tooth extraction, class IV edentulism Family History Family/Other Cancer breast Other Family history of diabetes mellitus type II Thyroid cancer Social History Smoking Status: Never smoker alcohol intake: never substance use type: denies use current occupational status: unemployed Travel in the last 8 weeks?: None household members: spouse housing: house marital status: education level: high school service: No jail: No caffeine: Yes special prince needs: No agree to transfusion: No do you feel safe at home: Yes victim of physical abuse: No victim of emotional abuse: No victim of sexual abuse: No would you like helpful sources: No Have you lived/traveled outside [place] in past 30 days?: No Contact w/someone who lives/traveled outside US past 30 days?: No Exposure to someone with infectious disease in past 14 days?: No Do you have a fever (greater than 100.4 F or 38 C)?: No Have you tested positive for COVID-19?: No Exposed to someone with COVID-19 in past 14 days?: No Do you have a sore throat?: No Do you have a cough?: No Do you have any weakness?: No Do you have any diarrhea?: No Are you experiencing any unusual bleeding?: No Do you have any muscle aches/pain?: No Do you have any abdominal pain?: No Are you experiencing loss of taste or smell?: No Other Medical History Have you received the Flu Vaccine for this season: No Have you received the Pneumonia Vaccine: No ROS Obtained: Yes Systems reviewed as appropriate & no additional complaints except as documented Physical Exam General General appearance: alert Comment: Appearing in pain in bed Head Head exam: atraumatic and normocephalic Eye Eye exam: Present PERRL and EOMI ENT ENT exam: Present mucous membranes moist Neck Neck exam: Present normal inspection Chest Chest inspection: Present normal inspection and symmetric chest wall rise Respiratory Respiratory exam: Present normal lung sounds bilaterally; Absent respiratory distress Cardiovascular Cardiovascular exam: Present regular rate and normal rhythm Abdominal Exam Abdominal exam: Present soft and tenderness (Mild, suprapubic); Absent guarding or rebound Extremities Exam Extremities exam: Present normal inspection Neurological Exam Neurological exam: Present alert Psychiatric Psychiatric exam: Present normal affect Skin Skin exam: Present warm and dry Medical Decision Making Medical Records Screening: Per USPSTF and CDC recommendations, given the prevalence of disease in our region, it is our hospital?s policy to screen for HIV and viral Hepatitis for all patients aged 18 and over and those with ongoing risk factors. Yvan Inquiry Pt receiving controlled substance: No Vital Signs: 10/11/24 12:14 10/11/24 12:20 10/11/24 13:38 Pulse Rate 104 H 80 Pulse Rate [Right Brachial] 111 H Respiratory Rate 18 18 18 Blood Pressure 166/90 H 131/74 Blood Pressure [Right Arm] 166/90 H Blood Pressure Mean 100 82 Blood Pressure Mean [Right Arm] 115 02 Sat by Pulse Oximetry 100 100 99 Oxygen Delivery Method Room Air 10/11/24 13:54 10/11/24 14:00 Pulse Rate 85 Pulse Rate [Right Brachial] Respiratory Rate Blood Pressure 139/79 128/74 Blood Pressure [Right Arm] Blood Pressure Mean 91 83 Blood Pressure Mean [Right Arm] 02 Sat by Pulse Oximetry 99 Oxygen Delivery Method Lab Data Lab Results 10/11/24 13:32: WBC 13.9 H, RBC 5.07, Hgb 12.6, Hct 38.5, MCV 75.9 L, MCH 24.9 L , MCHC 32.7, RDW 17.2, Plt Count 269, MPV 11.4 H, Neut % (Auto) 75.3, Lymph % (Auto) 16.5, [place] % (Auto) 6.0, Eos % (Auto) 1.1, Baso % (Auto) 0.6, Neut # (Auto) 10.5 H, Lymph # (Auto) 2.3, [place] # (Auto) 0.8, Eos # (Auto) 0.2, Baso # (Auto) 0.1, Sodium 139, Potassium 3.9, Chloride 103, Carbon Dioxide 25, Anion Gap 14.9, BUN 5 L, Creatinine 0.50 L, Estimated Creat Clear 121, Estimated GFR 148, Est GFR ( Amer) 179, Glucose 99, Calcium 9.2, Total Bilirubin 0.4, AST 26, ALT 25, Alkaline Phosphatase 71, Total Protein 7.9, Albumin 4.6, G lobulin 3.3 H, Albumin/Globulin Ratio 1.4, HCG, Quant 65 H 10/11/24 13:44: Urine Color Red, Urine Appearance Cloudy, Urine pH 6.0, Ur Specific [place] <= 1.005, Urine Protein Trace, Urine Glucose (UA) Negative, Urine Ketones Negative, Urine Blood 3+ A, Urine Nitrate Negative, Urine Bilirubin Negative, Urine Urobilinogen 0.2, Ur Leukocyte Esterase Negative, Urine RBC Tntc, Urine WBC None, Ur Squamous Epith Cells None, Urine Bacteria None 10/11/24 13:32 10/11/24 13:32 Orders (Tests/Meds): ED MEDICATIONS Discontinued Medications Generic Name Dose Route Start Last Admin Trade Name aRshi PRN Reason Stop Dose Admin Acetaminophen 1,000 mg 10/11/24 12:27 10/11/24 13:29 Acetaminophen 1,000mg/100ml Vial IV 10/11/24 12:28 1,000 mg ONCE ONE Administration Lactated Ringer's 1,000 mls @ 999 mls/hr 10/11/24 12:27 10/11/24 13:29 Lactated Ringer's 1000 Ml Bag IV 10/11/24 13:27 999 mls/hr .Q1H1M ONE Administration ORDERS Category Date Time Status US transvaginal Stat Exams 10/11/24 12:27 Completed CBC w/Auto Diff [Complete Blood Count Auto Diff] Stat Lab 10/11/24 13:32 Completed CMP [Comprehensive Metabolic Panel] Stat Lab 10/11/24 13:32 Completed HCG,Quantitative Stat Lab 10/11/24 13:32 Completed UA [Urinalysis and Microscopic] Stat Lab 10/11/24 13:44 Completed Medical Decision Narrative: In summary patient is 29-year-old female with past medical history described above presents emergency department for evaluation of suspected miscarriage. Patient is hemodynamically stable and appearing in pain upon arrival, afebrile. She has a downtrending hCG and is expelling clots in blood. hCG will be trended again and transvaginal ultrasound will be obtained as differential includes ectopic , retained products of conception, among others. Workup will also be conducted with hematologic labs. Initial inventions include IV Tylenol. Will hold off on Toradol until transvaginal ultrasound is complete and narcotic pain control was offered however patient wishes to defer at this time. Crystalloid bolus will be administered. Urinalysis will be obtained. Initial reviewed by me leukocytosis of 13.9, no YARELIS or critical electrolyte abnormality, hCG continues to downtrend, urinalysis interpreted by me and not consistent with infection. Transvaginal ultrasound no intrauterine gestation no evidence of retained products of conception small amount of free fluid in the cul-de-sac. Upon repeat evaluation patient had acceptable resolution of pain and bleeding had improved. Given this patient is appropriate for outpatient management at this time will follow-up with Dr. Patel later this week or early next week or on Wednesday. Critical Care Critical Care Time Critical Care Time: No
[2024-10-11] MEDS: ACETAMINOPHEN 1,000MG/100ML VIAL 1000 MG IV (13:29)
[2024-10-11] MEDS: LACTATED RINGERS 1000ML 1,000 ML 999 ML IV (13:29)
--- NOTE | 2024-10-11 13:35 | PC.NURSE ---
1325hrs- patient administered medications, verified by patient bracelet. Allergies also verified.
[2024-10-11 13:38] VITALS: BP 131/74; PULSE 80; RESP 18; O2SAT 99
[2024-10-11 13:41] LABS: Hematocrit 38.5 % (37.0-47.0); Hemoglobin 12.6 g/dL (12.2-16.2); Immature Granulocytes % 0.5 %; Mean Corpuscular HGB Conc 32.7 g/dL (31.8-35.4); Mean Corpuscular Hemoglobin 24.9 pg (27.0-31.2); Mean Corpuscular Volume 75.9 fl (81-99); Nucleated Red Blood Cells % 0 %; Platelet Count 269 K/mm3 (142-424); Red Blood Count 5.07 M/mm3 (4.20-5.40); Red Cell Distribution Width-SD 46.0 fL; White Blood Count 13.9 K/mm3 (4.8-10.8)
[2024-10-11 13:47] LABS: Albumin Level 4.6 g/dl (3.5-5.0); Chloride 103 mmol/L (98-107); Potassium 3.9 mmoL/L (3.5-5.1); Sodium 139 mmol/L (136-145)
[2024-10-11 13:50] LABS: Alanine Aminotransferase 25 U/L (12-78); Albumin/Globulin Ratio 1.4 (1.1-1.8); Alkaline Phosphatase 71 U/L (38-126); Anion Gap 14.9 mEq/L (5-15); Aspartate Amino Transferase 26 U/L (14-36); Bilirubin,Total 0.4 mg/dl (0.2-1.3); Blood Urea Nitrogen 5 mg/dl (7-17); Calcium 9.2 mg/dl (8.4-10.2); Carbon Dioxide 25 mmol/L (22.0-30.0); Creatinine Clearance Estimated 121 mL/min (50-200); Creatinine,Serum 0.50 mg/dl (0.52-1.04); Estimated Glomerular Filt Rate 148 ml/min (>60); GFR (African American) 179 ML/MIN (>60); Globulin 3.3 g/dL (1.3-3.2); Glucose 99 mg/dl (74-100); Total Protein,Serum 7.9 g/dl (6.3-8.2)
[2024-10-11 13:51] LABS: Microscopic, Urine URINE MICROSCOPIC (MICROSCOPIC)
[2024-10-11 13:54] VITALS: BP 139/79
[2024-10-11 13:54] LABS: Bilirubin,Urine Negative (Negative); Color,Urine RED (Yellow); Glucose,Urine (UA) Negative (Negative); Ketones,Urine Negative (Negative); Leukocyte Esterase,Urine Negative (Negative); PH,Urine 6.0 (5.0-8.5); Protein,Urine TRACE (Negative); Specific Gravity, Urine <= 1.005 (1.005-1.030); Urobilinogen,Urine 0.2 EU/dl (0.2)
[2024-10-11 14:00] VITALS: BP 128/74; PULSE 85; O2SAT 99
[2024-10-11 14:09] LABS: RBC,Urine TNTC #/hpf (0-3)
[2024-10-11] MEDS: KETOROLAC 30MG/ML VIAL 30 MG IV (15:52)
[2024-10-11 15:57] VITALS: BP 116/83; PULSE 92; RESP 18; TEMP 36.6; O2SAT 100
== END 2024-10-11 15:59 | disposition home or self-care (01) ==
PROVIDERS: Emergency Provider Emergency Medicine
DX: O03.9 Complete or unspecified spontaneous abortion without complication (principal); Z87.59 Personal history of other complications of pregnancy, childbirth and the puerperium
CPT/HCPCS: 76830; 80053; 81001; 84702; 85025; 96361; 96374; 96375; 99284; J0131; J1885; J7120

== ENCOUNTER 2024-12-25 17:42 | Emergency (ER) | payer OTHER, BC, SELFPAY ==
--- OUTSIDE RECORDS SUMMARY | 2024-12-21 13:00 | XMS_ITS | Encounter Summary ---
Author Organization [facility] Address [address] [place] [id number] Care Team Providers Care Item Processing Clerk Name Role Phone Pcp, No Primary Care Provider [phone] Source Comments This information has been disclosed to you from confidential records protectfrom disclosure by state law. You shall make no further disclosure of thisinformation without the specific, written, and informed release of theindividual to whom it pertains, or as otherwise permitted by law. A generalauthorization for the release of medical or other information is not sufficientfor the purposes of the release of HIV test results or diagnoses. [id number] Health Encounter Details Date Type Department Care Team (Latest Contact Info) Description 12/21/2024 1:00 PM EDT Clinical Support [facility] Reproductive Endocrinology and Infertility at [facility] [address] [address] Lalitha Michelle PA [address] [address] Zahra Salinas PCOS (polycystic ovarian syndrome); Female infertility; Recurrent loss Social History Tobacco Use Types Packs/Day Years Used Date Smoking Tobacco: Never Smokeless Tobacco: Never Alcohol Use Standard Drinks/Week Comments Never 0 (1 standard drink = 0.6 oz pur e alcohol) Comments Unknown Sex and Gender Information Value Date Recorded Sex Assigned at Not on file Legal Sex Female 1:26 PM EDT Gender Identity Not on file Sexual Orientation Not on file documented as of this encounter Progress Notes * Zahra Salinas - 12/21/2024 1:00 PM EDT Labs documented in this encounter Plan of Treatment Not on file documented as of this encounter Procedures Procedure Name Priority Date/Time Associated Diagnosis Comments POCT - TESTOSTERONE Routine 12/22/2024 8 :51 AM EDT PCOS (polycystic ovarian syndrome) Female infertility Recurrent loss POCT - PROLACTIN Routine 12/22/2024 8:51 AM EDT PCOS (polycystic ovarian syndrome) Female infertility Recurrent loss documented in this encounter Results * POCT - Testosterone (12/22/2024 8:51 AM EDT) POCT - Testosterone 36.89 [facility] Serum 12/22/2024 8:51 AM EDT Lalitha CHUNG POINT OF CARE TEST ORDERABL ES Final Result Performing Organization Address [facility] Co de Phone Number [facility] [address] [phone] * POCT - Prolactin (12/22/2024 8:51 AM EDT) POCT - Prolactin 23.13 [facility] 12/22/2024 8:51 AM EDT us Lalitha CHUNG POINT OF CARE TEST ORDERABL ES Final Result Performing Organization Address [facility] Co de Phone Number [facility] [address] [place] [address] documented in this encounter Visit Diagnoses Diagnosis PCOS (polycystic ovarian syndrome) Polycystic ovaries Female infertility Female infertility of unspecified origin Recurrent loss documented in this encounter Care Teams Item Processing Clerk Relationship Specialty Start Date End Date Pcp, No No Address PCP - General 10/13/24 documented as of this encounter
--- OUTSIDE RECORDS SUMMARY | 2024-12-21 13:00 | XMS_ITS | Encounter Summary ---
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 [id number] Reason for Referral * Physician/MEREDITH (Routine) - No Authorization Required Specialty Diagnoses / Procedures Referred By Contac t Referred To Contact [facility] Neurology Diagnoses PCOS (polycystic ovarian syndrome) Female infertility Recurrent loss Lalitha Michelle PA [address] [facility] [employer] [address] [address] Phone: tel: fax: Referral ID Status Reason Start Date Expiration Date Visits Requested Visits Authorized [id number] No Authorization Required 12/21/2024 06/19/2025 1 1 Scheduling Instructions For appointments, please call [phone]. * Diagnostic Lab (Routine) - New Request Specialty Diagnoses / Procedures Referred By Contac t Referred To Contact Diagnoses PCOS (polycystic ovarian syndrome) Female infertility Recurrent loss Procedures Non Oncology Chromosome Analysis, Blood Lalitha Michelle PA [address] [address] Phone: tel: fax: Referral ID Status Reason Start Date Expiration Date V isits Requested Visits Authorized [id number] New Request 12/21/2024 06/19/2025 1 1 Encounter Details Date Type Department Care Team (Late st Contact Info) Description 12/21/2024 1:00 PM EDT Office Visit [facility] Reproductive Endocrinology and Infertility at [facility] [address] [facility] [address] [facility] [address] [place] [address] Pinky Gregg MD [address] [place] [address] Lalitha Michelle PA [address] [facility] [address] [place] [address] PCOS (polycystic ovarian syndrome) (Primary Dx); Female infertility; Recurrent loss Social History Tobacco Use Types Packs/Day Years Used Date Smoking Tobacco: Never Smokeless Tobacco: Never Tobacco Cessation:Counseling Given: Not Answered Alcohol Use Standard Drinks/Week Comments Never 0 (1 standard drink = 0.6 oz pur e alcohol) Comments Unknown Sex and Gender Information Value Date Recorded Sex Assigned at Not on file Legal Sex Female 1:26 PM EDT Gender Identity Not on file Sexual Orientation Not on file documented as of this encounter Last Filed Vital Signs Vital Sign Reading Time Taken Comments Blood Pressure 126/80 12/21/2024 2:16 PM EDT Pulse 102 12/21/2024 2:16 PM EDT Temperature - - Respiratory Rate - - Oxygen Saturation 98% 12/21/2024 2:16 PM EDT Inhaled Oxygen Concentration 98% 12/21/2024 2 :16 PM EDT Weight 107.9 kg (237 lb 12.8 oz) 12/21/2024 2:16 PM EDT Height 152.4 cm (5') 12/21/2024 2:16 PM EDT Body Mass Index 46.44 12/21/2024 2:16 PM EDT documented in this encounter Progress Notes * SHELDON Ceron - 12/21/2024 1:00 PM EDT Kashmir Martinez is a 29 y.o. female presenting for evaluation and management of RPL, previous longstanding infertility, PCOS. TTC x10 years. Has taken unmon LE over the last year in attempts to conceive. 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 Prior fertility treatments/monitoring used: LE 5x5 Prior Contraception used: no Prior Imaging: [facility] patent tubes in 2023 Prior SA: yes- normal 2023 Ethnicity: Not or Patient tested for: Genetic Carrier Testing: no. Family History: Defects? no Mental Disabilities? 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 Bleeds from 3-7 days, very heavy, uses 1 pad/hr Moderate dysmenorrhea Regular [place]? yes Dyspareunia? History of STD's? No History of Abn PAP? no Last PAP: NEEDS, last PAP 9 yrs ago Excessive hair growth, acne? Facial hair growth -- shaves daily +acne , +alopecia Breast discharge/? No Headaches/vision changes? Daily headaches- migraines Hot flashes/vaginal dryness? no Heat/cold intolerance? Heat intolerance Weight gain, Exercise? Fluctuates 20 lbs Diet? Poor Exercise? 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 1 pack/week + vape ETOH no Drugs no Toxic exposures paint fumes at [email or web address] Urologic History: Testicular trauma no Genital surgery no Erection problem no Ejaculation problem no Family History: Mental Disabilities: no Defects: no # pregnancies from this relationship: 3 # pregnancies from prior relationship: 0 Past Medical History: Diagnosis Date PCOS (polycystic ovarian syndrome) Past Surgical History: Procedure Laterality Date BREAST FIBROADENOMA SURGERY DILATION AND CURETTAGE OF UTERUS Current Outpatient Medications Medication Sig Dispense Refill ubrogepant (UBRELVY) 50 mg Tab Take 1 tablet (50 mg total) by mouth. cholecalciferol, vitamin D3, 10 mcg (400 unit) Tab tablet Take 2 tablets (800 Units total) by mouthdaily. Indications: vitamin D deficiency 60 tablet 3 medroxyPROGESTERone (PROVERA) 10 MG tablet Take 1 tablet (10 mg total) by mouth daily. Please confirm negative test prior to taking. 10 tablet 1 PNV,calcium 95-brub-useoo acid ( PLUS) 27 mg iron- 1 mg Tab tablet Take 1 tablet by mouth daily. 90 tablet 3 No current facility-administered medications for this visit. Allergies[1] Social History Socioeconomic History Marital status: Spouse name: Not on file Number of children: Not on file Years of education: Not on file Highest education level: Not on file Occupational History Not on file Tobacco Use Smoking status: Never Smokeless tobacco: Never Substance and Sexual Activity Alcohol use: Never Drug use: Never Sexual activity: Yes Partners: Male control/protection: None Other Topics Concern Not on file Social History Narrative Not on file Social Drivers of Health Financial Resource Strain: Not on file Food Insecurity: Not on file Transportation Needs: Not on file Physical Activity: Not on file Stress: Not on file Social Connections: Not on file Intimate Partner Violence: Not on file Housing Stability: Not on file OB History Para Term AB Living 3 3 SAB IAB Ectopic Multiple Live Births 2 # Outcome Date GA Lbr Isaías/2nd Weight Sex Type Anes PTL Lv 3 2024 Comments: +biochemical 2 2023 Comments: +biochemical 1 AB 2023 9w0d Comments: d&c History reviewed. No pertinent family history. PHYSICAL EXAM: BP 126/80 Pulse 102 Ht 5' (1.524 m) Wt (!) 237 lb 12.8 oz (107.9 kg) SpO2 98% BMI 46.44 kg/m?? Gen: NAD, A&Ox4 No LMP recorded. Assessment: 29 y.o. Infertility PCOS- oligomenorrhea + hirsutism RPL Menorrhagia Needs PAP smear Migraines Obesity Plan: RPL - RPL Workup: B2 Glycoprotein, Lupus Anticoagulant, Anti Cardiolipin Ab, Parental Chromosomes &structural eval SIS/HyCoSy - Hormonal evaluation- AMH, TSH, Prolactin. - RPL Counseling: Thoroughly discussed causes of RPL including bleeding/clotting disorders, uterinestructural abnormalities, parental chromosomal abnormalities, chromosomal abnormalities, and unexplained causes. - RPL Management: Discussed treatment options including empiric treatment with ASA and progesterone, surgical management of uterine abnormalities, IVF/PGT, empiric lovenox -- discuss in detail after workup complete PCOS - Discussed normal menstrual cycle, rates of fertility in PCOS population, causes of infertility and anovulation associated with PCOS, testing required for diagnosis of PCOS, R/B/A of treatment options for symptom management vs fertility treatment - Discussed impact of PCOS on general health, increased risk of anxiety/depression, cardiovascular disease, diabetes, risk of infertility - Discussed provera use if not having spontaneous cycles - recommend 3-4 bleeds per year to preventendometrial hyperplasia. Call for provera rx if longer than 35 days between cycles. - Increased risk for insulin resistance with clinical findings of abdominal obesity - Reviewed weight loss to help with menstrual regulation, even 5-10% weight loss can restore ovulatory cycles, improve rate, improve insulin sensitization and improve hirsutism Infertility / Preconception - Hormonal evaluation- AMH, TSH, Prolactin. PCOS Labs - Procreative management - CBC/CMP, Rubella, Varicella, ABO + Ab, STD's today. Genetic Screening: Given cost info, will call if desires - Infertility evaluation - SIS/HyCoSy next cycle and SA recommended - PNV with Folic Acid recommended - Infertility Management: defer until after eval - Counseling: Discussed normal menstrual cycle, rates of fertility in general population, causes ofinfertility, testing required, R/B/A of treatment options. Needs PAP with MOTORCYCLE TESTER - RTO for SIS/HyCoSy + EMBx. Will review all testing and discuss infertility management at next follow up Lalitha Michelle PA-C Reproductive Endocrinology & Infertility [facility] 12/21/2024 2:59 PM Number and Complexity of Problems Addressed 1 acute, uncomplicated illness or injury Amount and/or Complexity of Data to be Reviewed and Analyzed 3+ unique tests ordered Risk of Complications and/or Morbidity or Mortality of Patient Management Moderate [1] No Known Drug Allergies or Adverse Reactions documented in this encounter Plan of Treatment Scheduled Orders Name Type Priority Associated Diagnoses Orde r Schedule ABO/Rh Blood Bank Routine PCOS (polycystic ovarian syndrome) Female infertility Recurrent loss 1 Occurrences starting 12/21/2024 until 12/21/2025 Antibody screen Blood Bank Routine PCOS (polycystic ovarian syndrome) Female infertility Recurrent loss 1 Occurrences starting 12/21/2024 until 12/21/2025 Hepatitis B surface antigen Lab Routine PCOS (polycystic ovarian syndrome) Female infertility Recurrent loss 1 Occurrences starting 12/21/2024 until 07/05/2025 Hepatitis C Antibody Lab Routine PCOS (polycystic ovarian syndrome) Female infertility Recurrent loss 1 Occurrences starting 12/21/2024 until 07/05/2025 HIV 1+2 Antibody/Antigen with Reflex Lab Routine PCOS (polycystic ovarian syndrome) Female infertility Recurrent loss 1 Occurrences starting 12/21/2024 until 07/05/2025 Rubella Immune Status Lab Routine PCOS (polycystic ovarian syndrome) Female infertility Recurrent loss 1 Occurrences starting 12/21/2024 until 07/05/2025 Syphilis Screening (Trepia) Lab Routine PCOS (polycystic ovarian syndrome) Female infertility Recurrent loss 1 Occurrences starting 12/21/2024 until 07/05/2025 Varicella zoster antibody, IgG Lab Routine PCOS (polycystic ovarian syndrome) Female infertility Recurrent loss 1 Occurrences starting 12/21/2024 until 07/05/2025 DHEA-sulfate, serum Lab Routine PCOS (polycystic ovarian syndrome) Female infertility Recurrent loss 1 Occurrences starting 12/21/2024 until 07/05/2025 17-Hydroxyprogesterone Lab Routine PCOS (polycystic ovarian syndrome) Female infertility Recurrent loss 1 Occurrences starting 12/21/2024 until 07/05/2025 CBC Lab Routine PCOS (polycystic ovarian syndrome) Female infertility Recurrent loss 1 Occurrences starting 12/21/2024 until 07/05/2025 Comprehensive metabolic panel Lab Routine PCOS (polycystic ovarian syndrome) Female infertility Recurrent loss 1 Occurrences starting 12/21/2024 until 07/05/2025 Hemoglobin A1c Lab Routine PCOS (polycystic ovarian syndrome) Female infertility Recurrent loss 1 Occurrences starting 12/21/2024 until 07/05/2025 Vitamin D 25 hydroxy Lab Routine PCOS (polycystic ovarian syndrome) Female infertility Recurrent loss 1 Occurrences starting 12/21/2024 until 07/05/2025 Beta 2 Glycoprotein IgG/IgM Lab Routine PCOS (polycystic ovarian syndrome) Female infertility Recurrent loss 1 Occurrences starting 12/21/2024 until 07/05/2025 Anticardiolipin Antibody- IgG/IgM Lab Routine PCOS (polycystic ovarian syndrome) Female infertility Recurrent loss 1 Occurrences starting 12/21/2024 until 07/05/2025 Non Oncology Chromosome Analysis, Blood Lab Routine PCOS (polycystic ovarian syndrome) Female infertility Recurrent loss 1 Occurrences starting 12/21/2024 until 07/05/2025 Lupus Anticoagulant Eval with Reflex Lab Routine PCOS (polycystic ovarian syndrome) Female infertility Recurrent loss 1 Occurrences starting 12/21/2024 until 12/21/2025 Scheduled Referrals Name Type Priority Associated Diagnoses Orde r Schedule General Neurology Outpatient Referral Routine PCOS (polycystic ovarian syndrome) Female infertility Recurrent loss Ordered: 12/21/2024 documented as of this encounter Procedures Procedure Name Priority Date/Time Associated Diagnosis Comments POCT ANTI-MULLERIAN HORMONE Routine 12/22/2024 8:51 AM EDT PCOS (polycystic ovarian syndrome) Female infertility Recurrent loss POCT THYROID STIMULATING HORMONE (TSH) Routine 12/22/2024 8:51 AM EDT PCOS (polycystic ovarian syndrome) Female infertility Recurrent loss documented in this encounter Results * POCT - Prolactin (12/22/2024 8:51 AM EDT) POCT - Prolactin 23.13 [facility] 12/22/2024 8:51 AM EDT us Lalitha CHUNG POINT OF CARE TEST ORDERABL ES Final Result [facility] [address] [place] [address] * POCT - Testosterone (12/22/2024 8:51 AM EDT) POCT - Testosterone 36.89 [facility] Serum 12/22/2024 8:51 AM EDT Lalitha CHUNG POINT OF CARE TEST ORDERABL ES Final Result Performing Organization Address City/[facility]/ZIP Co de Phone Number [address] [address] * POCT Anti-Mullerian Hormone (12/22/2024 8:51 AM EDT) POCT - Anti-Mullerian Hormone 6.71 0.89 - 9.85 ng/ml [facility] Blood UPPER LIMB STRUCTURE / Unknown 12/22/2024 8:51 AM EDT Lalitha CHUNG POINT OF CARE TEST ORDERABL ES Final Result Performing Organization Address [facility] Co de Phone Number [address] [address] * POCT thyroid stimulating hormone (TSH) (12/22/2024 8:51 AM EDT) TSH, POC 4.10 EXTERNAL Blood 12/22/2024 8:51 AM EDT Lalitha CHUNG POINT OF CARE TEST ORDERABL ES Final Result EXTERNAL documented in this encounter Visit Diagnoses Diagnosis PCOS (polycystic ovarian syndrome)- Primary Polycystic ovaries Female infertility Female infertility of unspecified origin Recurrent loss documented in this encounter Care Teams Steam Heating Installer Relationship Specialty Start Date End Date Pcp, No No Address PCP - General 10/13/24 documented as of this encounter
[2024-12-25 18:20] VITALS: BP 129/74; PULSE 88; RESP 14; TEMP 36.8; O2SAT 98; BMI 46.5
--- OUTSIDE RECORDS SUMMARY | 2024-12-25 18:35 | XMS_ITS | Clinical Summary ---
Author Organization [facility] Address [facility] [place] [address] Care Team Providers Care Spray Maker Name Role Phone Pcp, No Primary Care Provider [phone] Source Comments This information has been disclosed to you from confidential records protectedfrom disclosure by state law. You shall make no further disclosure of thisinformation without the specific, written, and informed release of theindividual to whom it pertains, or as otherwise permitted by law. A generalauthorization for the release of medical or other information is not sufficientfor the purposes of therelease of HIV test results or diagnoses. [id number] Allergies No known active allergies Medications ubrogepant (UBRELVY) 50 mg Tab Take 1 tablet (50 mg total) by mouth. Active PNV,calcium 84-pixn-zcmou acid ( PLUS) 27 mg iron- 1 mg Tab tablet Take 1 tablet by mouth daily. 90 tablet 3 5 Active cholecalciferol , vitamin D3, 10 mcg (400 unit) Tab tabletIndicatio ns:vitamin D deficiency Take 2 tablets (800 Units total) by mouth daily. Indications: vitamin D deficiency 60 tablet 3 5 04/20/19 26 Active medroxyPROGESTE Giovanni (PROVERA) 10 MG tablet Take 1 tablet (10 mg total) by mouth daily. Please confirm negative test prior to taking. 10 tablet 1 5 Active Encounters Date Type Department Care Team Description 12/22/2024 Results Follow-Up [facility] Reproductive Endocrinology and Infertility at [place] [address] [place] [address] [address] [place], [place] [id number] Lalitha Michelle PA Comprehensive metabolic panel, CBC, Hepatitis C Ab w/reflex to HCV RNA, QN, PCR, Additional followed-up results: 10 12/21/2024 1:00 PM EDT Clinical Support [facility] Rep[facility] End[facility]inology and Infertility at [address] [address] Lalitha Michelle PA Grant, Tiffany PCOS (polycystic ovarian syndrome); Female infertility; Recurrent loss 12/21/2024 1:00 PM EDT Office Visit [facility]ology and Infertility at [address] [address] Pinky Gregg MD Knaley, Rebecca A., PA PCOS (polycystic ovarian syndrome) (Primary Dx); Female infertility; Recurrent loss 12/21/2024 Orders Only [facility] Reproductive Endocrinology and Infertility at [address] [place] [address] Lalitha Michelle PA from Last 3 Months Social History Tobacco Use Types Packs/Day Years [...] on file Sexual Orientation Not on file Last Filed Vital Signs Vital Sign Reading [...] Mass Index 46.44 12/21/2024 2:16 PM EDT Plan of Treatment Health Maintenance Due Date Last Done Comments Depression Screening 2015 HIV Screening 2015 Immunization: Hepatitis B (1 of 3 - 19+ 3-dose series) 02/29/2016 Cervical Cancer Screening/Pa p Smear (99testshart) 2018 Immunization: DTaP/Tdap/Td ( 2 - Td or Tdap) 10/26/2023 10/25/2013 Immunization: COVID-19 ( season) 2024 03/07/2021, 02/11/2021 Immunization: Influenza (99testshart) (#1) 2024 Diabetes Screening 12/21/2025 12/21/2024 Hepatitis C Screening (99testshart) Completed 12/21/2024 Immunization: Pneumococcal Aged Out N o longer eligible based on patient's age to complete this topic Procedures Procedure Name Priority Date/Time Associated Diagnosis Comments POCT - TESTOSTERONE Routine 12/22/2024 8 :51 AM EDT PCOS (polycystic ovarian syndrome) Female infertility Recurrent loss POCT - PROLACTIN Routine 12/22/2024 8:51 AM EDT PCOS (polycystic ovarian syndrome) Female infertility Recurrent loss POCT ANTI-MULLERIAN HORMONE Routine 12/22/2024 8:51 AM EDT PCOS (polycystic ovarian syndrome) Female infertility Recurrent loss POCT THYROID STIMULATING HORMONE (TSH) Routine 12/22/2024 8:51 AM EDT PCOS (polycystic ovarian syndrome) Female infertility Recurrent loss ANTIBODY SCREEN Routine 12/21/2024 2:27 PM EDT ABO/RH Routine 12/21/2024 2:27 PM EDT ANTICARDIOLIPIN AB, IGG/M, QN Routine 12/21/2024 2:27 PM EDT BETA 2-GLYCOPROTEIN I ANTIBODIES (IGA, IGG, IGM) Routine 12/21/2024 2:27 PM EDT VITAMIN D 25 HYDROXY Routine 12/21/2024 2:27 PM EDT HEPATITIS B SURFACE ANTIGEN Routine 12/21/2024 2:27 PM EDT RPR Routine 12/21/2024 2:27 PM EDT VARICELLA ZOSTER ANTIBODY, IGG Routine 12/21/2024 2:27 PM EDT PANEL [id number] Routine 12/21/2024 2:27 PM EDT RUBELLA IMMUNE STATUS Routine 12/21/2024 2:27 PM EDT DHEA-SULFATE Routine 12/21/2024 2:27 PM EDT HEMOGLOBIN A1C Routine 12/21/2024 2:27 PM EDT INTERPRETATION: (HCV AB) Routine 12/21/2024 2:27 PM EDT HEPATITIS C AB W/REFLEX TO HCV RNA, QN, PCR Routine 12/21/2024 2:27 PM EDT CBC Routine 12/21/2024 2:27 PM EDT COMPREHENSIVE METABOLIC PANEL Routine 12/21/2024 2:27 PM EDT from Last 3 Months Results * POCT Anti-Mullerian Hormone (12/22/2024 8:51 AM EDT) POCT - Anti-Mullerian Hormone 6.71 0.89 - 9.85 ng/ml [facility] Blood UPPER LIMB STRUCTURE / Unknown 12/22/2024 8:51 AM EDT us Lalitha CHUNG POINT OF CARE TEST ORDERABL ES Final Result [facility] [address] [place] [address] * POCT - Testosterone (12/22/2024 8:51 AM EDT) POCT - Testosterone 36.89 [facility] Serum 12/22/2024 8:51 AM EDT Lalitha CHUNG POINT OF CARE TEST ORDERABL ES Final Result Performing Organization Address [facility] Co de Phone Number [facility] [address] [place] [address] * POCT - Prolactin (12/22/2024 8:51 AM EDT) POCT - Prolactin 23.13 [facility] 12/22/2024 8:51 AM EDT Lalitha CHUNG POINT OF CARE TEST ORDERABL ES Final Result Performing Organization Address [facility] Co de Phone Number [facility] [address] [place] [address] * POCT thyroid stimulating hormone (TSH) (12/22/2024 8:51 AM EDT) TSH, POC 4.10 EXTERNAL Blood 12/22/2024 8:51 AM EDT Lalitha CHUNG POINT OF CARE TEST ORDERABL ES Final Result Performing Organization Address City/[facility] Co de Phone Number EXTERNAL * Panel [id number] (12/21/2024 2:27 PM EDT) HIV Screen 4th Generation wRfx Non Reactive Non Reactive [facility] 1 Comment: HIV-1/HIV-2 antibodies and HIV-1 p24 antigen were NOT detected. There is no laboratory evidence of HIV infection. HIV Negative 12/21/2024 2:27 PM EDT 12/21/2024 Narrative [facility] - 12/22/2024 6:07 AM EDT Performed at: [facility] [id number] Product Support Technician: Lon Maria PhD, Phone: [phone] Lalitha CHUNG LAB BLOOD ORDERABLES Final Result Performing Organization Address City/[facility]/ZIP Co de Phone Number [facility] * Anticardiolipin Ab, IgG/M, Qn (12/21/2024 2:27 PM EDT) Anticardiolipin Ab, IgG <9 0 - 14 GPL U/mL [facility] 1 Comment: Negative: <15 Indeterminate: 15 - 20 Low-Med Positive: >20 - 80 High Positive: >80 Cardiolipin Ab (IgM) <9 0 - 12 MPL U/mL [facility] 1 Comment: Negative: <13 Indeterminate: 13 - 20 Low-Med Positive: >20 - 80 High Positive: >80 12/21/2024 2:27 PM EDT 12/21/2024 Narrative [facility] - 12/22/2024 3:07 PM EDT Performed at: [address] [place] [address] Product Support Technician: Lon Maria PhD, Phone: [phone] Lalitha CHUNG LAB BLOOD ORDERABLES Final Result Performing Organization Address [facility] de Phone Number [facility] * (ABNORMAL) Rubella Immune Status (12/21/2024 2:27 PM EDT) Rubella Antibodies, IgG <0.90(L) Immune >0.99 index [facility] 1 Comment: Non-immune <0.90 Equivocal 0.90 - 0.99 Immune >0.99 12/21/2024 2:27 PM EDT 12/21/2024 [facility] - 12/22/2024 6:07 AM EDT Performed at: [address] [place] [id number] Product Support Technician: Lon Maria PhD, Phone: [phone] Lalitha CHUNG LAB BLOOD ORDERABLES Final Result Performing Organization Address [facility] Co de Phone Number [facility] * Beta 2-Glycoprotein I Abs (IgA,IgG,IgM) (12/21/2024 2:27 PM EDT) [facility] Beta-2 Glyco 1 IgG <9 0 - 20 GPI IgG units [facility] 1 Beta-2 Glyco 1 IgA <9 0 - 25 GPI IgA units [facility] 1 Beta-2 Glyco 1 IgM <9 0 - 32 GPI IgM units [facility] 1 12/21/2024 2:27 PM EDT 12/21/2024 Narrative [facility] - 12/22/2024 3:07 PM EDT Performed at: [address] [place] [id number] Product Support Technician: Lon Maria PhD, Phone: [phone] Lalitha CHUNG LAB BLOOD ORDERABLES Final Result Performing Organization Address [facility] de Phone Number [facility] * Interpretation: (HCV Ab) (12/21/2024 2:27 PM EDT) [facility] Interpretation: (HCV Ab) Comment [facility] 1 Comment: Not infected with HCV unless early or acute infection is suspected (which may be delayed in an immunocompromised individual), or other evidence exists to indicate HCV infection. 12/21/2024 2:27 PM EDT 12/21/2024 Narrative [facility] - 12/22/2024 6:07 AM EDT Performed at: [address] [place] [id number] Product Support Technician: Lon Maria PhD, Phone: [phone] Lalitha CHUNG LAB BLOOD ORDERABLES Final Result Performing Organization Address [facility] de Phone Number [facility] * Hepatitis C Ab w/reflex to HCV RNA, QN, PCR (12/21/2024 2:27 PM EDT) [facility] HCV Ab Non Reactive Non Reactive [facility] 1 12/21/2024 2:27 PM EDT 12/21/2024 Narrative [facility] - 12/22/2024 6:07 AM EDT Performed at: [address] [place] [id number] Product Support Technician: Lon Maria PhD, Phone: [phone] Lalitha CHUNG LAB BLOOD ORDERABLES Final Result [facility] * ABO/Rh (12/21/2024 2:27 PM EDT) Pathologist [facility] ABO Grouping O [facility] 1 Rh Type Positive [facility] 1 Comment: Please note: Prior records for this patient's ABO / Rh type are not available for additional verification. 12/21/2024 2:27 PM EDT 12/21/2024 [facility] - 12/22/2024 7:06 AM EDT Performed at: [address] [place] [id number] Product Support Technician: Lon Maria PhD, Phone: [phone] Lalitha CHUNG BLOOD BANK TEST ORDERABLES Final Result Performing Organization Address City/[facility] Co de Phone Number [facility] 1 * (ABNORMAL) Vitamin D 25 hydroxy (12/21/2024 2:27 PM EDT) Pathologist [facility] Vit D, 25-Hydroxy 14.5(L) 30.0 - 100.0 ng/mL [facility] 1 Comment: Vitamin D deficiency has been defined by the [place] of [employer] and an Endocrine Society practice guideline as a level of serum 25-OH vitamin D less than 20 ng/mL (1,2). The Endocrine Society went on to further define vitamin D insufficiency as a level between 21 and 29 ng/mL (2). 1. IOM ([place] of [employer]). 2010. Dietary reference intakes for calcium and D. [place]: The National Academies Press. 2. Nahed MF, Cheryl NC, Pat JEAN BAPTISTE, et al. Evaluation, treatment, and prevention of vitamin D deficiency: an Endocrine Society clinical practice guideline. JCEM. 2010; 96(7):1911-30. 12/21/2024 2:27 PM EDT 12/21/2024 Narrative [facility] - 12/22/2024 8:08 AM EDT Performed at: [address] [id number] Product Support Technician: Lon Maria PhD, Phone: [phone] us Lalitha CHUNG LAB BLOOD ORDERABLES Final Result Performing Organization Address [facility] Co de Phone Number [facility] 1 * DHEA-sulfate, serum (12/21/2024 2:27 PM EDT) DHEA Sulfate 179.0 84.8 - 378.0 ug/dL [facility] 1 12/21/2024 2:27 PM EDT 12/21/2024 Narrative [facility] - 12/22/2024 6:07 AM EDT Performed at: [address] [place] [id number] Product Support Technician: Lon Maria PhD, Phone: [phone] us Lalitha CHUNG LAB BLOOD ORDERABLES Final Result Performing Organization Address City/[facility] Co de Phone Number [facility] * RPR (12/21/2024 2:27 PM EDT) RPR Non Reactive Non Reactive [facility] 1 12/21/2024 2:27 PM EDT 12/21/2024 Narrative [facility] - 12/22/2024 6:07 AM EDT Performed at: [address] [id number] Product Support Technician: Lon Maria PhD, Phone: [phone] Lalitha CHUNG LAB BLOOD ORDERABLES Final Result [facility] 1 * Hepatitis B surface antigen (12/21/2024 2:27 PM EDT) Pathologist [facility] Hep B Surface Ag Negative Negative [facility] 1 12/21/2024 2:27 PM EDT 12/21/2024 Narrative [facility] - 12/22/2024 6:07 AM EDT Performed at: [address] [id number] Product Support Technician: Lon Maria PhD, Phone: [phone] Lalitha CHUNG LAB BLOOD ORDERABLES Final Result Performing Organization Address [facility] de Phone Number [facility] 1 * (ABNORMAL) CBC (12/21/2024 2:27 PM EDT) Pathologist [facility] WBC 8.9 3.4 - 10.8 x10E3/uL [facility] 1 RBC 5.27 3.77 - 5.28 x10E6/uL [facility] 1 Hemoglobin 13.6 11.1 - 15.9 g/dL [facility] 1 Hematocrit 42.4 34.0 - 46.6 % [facility] 1 MCV 81 79 - 97 fL [facility] 1 MCH 25.8(L) 26.6 - 33.0 pg [facility] 1 MCHC 32.1 31.5 - 35.7 g/dL [facility] 1 RDW 15.0 11.7 - 15.4 % [facility] 1 Platelets 329 150 - 450 x10E3/uL [facility] 1 12/21/2024 2:27 PM EDT 12/21/2024 Narrative [facility] - 12/22/2024 6:07 AM EDT Performed at: [address] [id number] Product Support Technician: Lon Maria PhD, Phone: [phone] Lalitha CHUNG LAB BLOOD ORDERABLES Final Result Performing Organization Address [facility] Co nd Phone Number [facility] 1 * Antibody screen (12/21/2024 2:27 PM EDT) [facility] Antibody Screen Negative Negative [facility] 1 12/21/2024 2:27 PM EDT 12/21/2024 Narrative [facility] - 12/22/2024 7:06 AM EDT Performed at: [address] [id number] Product Support Technician: Lon Maria PhD, Phone: [phone] Result [facility] Lalitha CHUNG BLOOD BANK TEST ORDERABLES Final Result Performing Organization Address [facility] Phone Number [facility] * Varicella zoster antibody, IgG (12/21/2024 2:27 PM EDT) [facility] Varicella IgG Non Reactive Non Reactive [facility] 1 Comment: Please note reference interval change A Reactive result is considered evidence of immunity to VZV. Reactive indicates that VZV IgG was detected consistent with previous infection and/or vaccination. A Non Reactive result indicates that VZV IgG was not detected suggesting that immunity has not been acquired. 12/21/2024 2:27 PM EDT 12/21/2024 Narrative [facility] - 12/22/2024 6:07 AM EDT Performed at: [address] [id number] Product Support Technician: Lon Maria PhD, Phone: [phone] Lalitha CHUNG LAB BLOOD ORDERABLES Final Result Performing Organization Address [facility] de Phone Number [facility] * Hemoglobin A1c (12/21/2024 2:27 PM EDT) [facility] Hemoglobin A1C 5.4 4.8 - 5.6 % [facility] 1 Comment: Prediabetes: 5.7 - 6.4 Diabetes: >6.4 Glycemic control for adults with diabetes: <7.0 12/21/2024 2:27 PM EDT 12/21/2024 Narrative [facility] - 12/22/2024 6:07 AM EDT Performed at: 01 - [address] [id number] Product Support Technician: Lon Maria PhD, Phone: [phone] us Lalitha CHUNG LAB BLOOD ORDERABLES Final Result [facility] 1 * (ABNORMAL) Comprehensive metabolic panel (12/21/2024 2:27 PM EDT) [facility] Glucose 130(H) 70 - 99 mg/dL [facility] 1 BUN 13 6 - 20 mg/dL [facility] 1 Creatinine 0.72 0.57 - 1.00 mg/dL [facility] 1 EGFR 117 >59 mL/min/1.7 3 [facility] 1 BUN/Creatinine Ratio 18 9 - 23 [facility] 1 Sodium 140 134 - 144 mmol/L [facility] 1 Potassium 4.0 3.5 - 5.2 mmol/L [facility] 1 Chloride 102 96 - 106 mmol/L [facility] 1 CO2 22 20 - 29 mmol/L [facility] 1 Calcium 9.4 8.7 - 10.2 mg/dL [facility] 1 Total Protein 7.4 6.0 - 8.5 g/dL [facility] 1 Albumin 4.6 4.0 - 5.0 g/dL [facility] 1 Globulin, Total 2.8 1.5 - 4.5 g/dL [facility] 1 Total Bilirubin 0.3 0.0 - 1.2 mg/dL [facility] 1 Alkaline Phosphatase 100 41 - 116 IU/L [facility] 1 Comment:Please note refere nce interval change AST 22 0 - 40 IU/L [facility] 1 ALT 29 0 - 32 IU/L [facility] 1 12/21/2024 2:27 PM EDT 12/21/2024 Narrative [facility] - 12/22/2024 6:07 AM EDT Performed at: - [facility] [address] [id number] Product Support Technician: Lon Maria PhD, Phone: [phone] us Lalitha CHUNG LAB BLOOD ORDERABLES Final Result [facility] 1 from Last 3 Months Insurance [facility] [place] [id number] [employer] ACCESS Care Teams Spray Maker Relationship Specialty Start Date End Date Pcp, No No Address PCP - General 10/13/24
--- OUTSIDE RECORDS SUMMARY | 2024-12-25 18:35 | XMS_ITS | Encounter Summary ---
Author Organization [facility] Address [address] [place] [address] Care Team Providers Care Security Chief Museum Name Role Phone Pcp, No Primary Care Provider [phone] Source Comments This information has been disclosed [...] release of HIV test results or diagnoses. [id number] Encounter Details Date Type Department Care Team (Latest Contact Info) Description 12/22/2024 Results Follow-Up [facility] Reproductive Endocrinology and Infertility at [place] [address] [place] [address] Lalitha Michelle PA [address] [phone] Comprehensive metabolic panel, CBC, Hepatitis C Ab w/reflex to HCV RNA, QN, PCR, Additional followed-up results: 10 Social History Tobacco Use Types Packs/Day Years [...] on file documented as of this encounter Plan of Treatment Not on file documented as of this encounter Visit Diagnoses Not on filedocumented in this encounter Care Teams Security Chief Museum Relationship Specialty Start Date End Date Pcp, No No Address PCP - General 10/13/24 documented as of this encounter
--- OUTSIDE RECORDS SUMMARY | 2024-12-25 18:35 | XMS_ITS | Encounter Summary ---
Author Organization [facility] Address [address] [place] [id number] Care Team Providers Care Medical Records Auditor Name Role Phone Pcp, No Primary Care Provider [phone] Source Comments This information has been disclosed [...] release of HIV test results or diagnoses. [id number] Encounter Details Date Type Department Care Team (Late st Contact Info) Description 12/21/2024 Orders Only [facility] Reproductive Endocrinology and Infertility at [place] [address] [facility] [address] [place] [address] Lalitha Michelle PA [address] [address] Social History Tobacco Use Types Packs/Day Years [...] Procedure Name Priority Date/Time Associated Diagnosis Comments PANEL [id number] Routine 12/21/2024 2:27 PM EDT ANTICARDIOLIPIN AB, IGG/M, QN Routine 12/21/2024 2:27 PM EDT RUBELLA IMMUNE STATUS Routine 12/21/2024 2:27 PM EDT BETA 2-GLYCOPROTEIN I ANTIBODIES (IGA, IGG, IGM) Routine 12/21/2024 2:27 PM EDT INTERPRETATION: (HCV AB) Routine 12/21/2024 2:27 PM EDT HEPATITIS C AB W/REFLEX TO HCV RNA, QN, PCR Routine 12/21/2024 2:27 PM EDT ABO/RH Routine 12/21/2024 2:27 PM EDT VITAMIN D 25 HYDROXY Routine 12/21/2024 2:27 PM EDT DHEA-SULFATE Routine 12/21/2024 2:27 PM EDT RPR Routine 12/21/2024 2:27 PM EDT HEPATITIS B SURFACE ANTIGEN Routine 12/21/2024 2:27 PM EDT CBC Routine 12/21/2024 2:27 PM EDT ANTIBODY SCREEN Routine 12/21/2024 2:27 PM EDT VARICELLA ZOSTER ANTIBODY, IGG Routine 12/21/2024 2:27 PM EDT HEMOGLOBIN A1C Routine 12/21/2024 2:27 PM EDT COMPREHENSIVE METABOLIC PANEL Routine 12/21/2024 2:27 PM EDT documented in this encounter Results * Anticardiolipin Ab, IgG/M, Qn (12/21/2024 2:27 [...] - 12/22/2024 3:07 PM EDT Performed at: [address] [place] [id number] Squirrel Man: Lon Maria PhD, Phone: [phone] us Lalitha CHUNG LAB BLOOD ORDERABLES Final Result Performing Organization Address [facility] Co de Phone Number [facility] 1 * Beta 2-Glycoprotein I Abs (IgA,IgG,IgM) (12/21/2024 2:27 PM EDT) [facility] Beta-2 Glyco 1 IgG <9 0 - 20 GPI IgG units [facility] 1 Beta-2 Glyco 1 IgA <9 0 - 25 GPI IgA units [facility] 1 Beta-2 Glyco 1 IgM <9 0 - 32 GPI IgM units [facility] 1 12/21/2024 2:27 PM EDT 12/21/2024 Narrative [facility] - 12/22/2024 3:07 PM EDT Performed at: [address] [place] [id number] Squirrel Man: Lon Maria PhD, Phone: [phone] us Lalitha CHUNG LAB BLOOD ORDERABLES Final Result Performing Organization Address [facility] Co de Phone Number [facility] 1 * (ABNORMAL) Vitamin D 25 hydroxy (12/21/2024 2:27 PM EDT) [facility] Vit D, 25-Hydroxy 14.5(L) 30.0 - 100.0 ng/mL [facility] 1 Comment: Vitamin D deficiency has been defined by the [place] of Medicine and an Endocrine Society practice guideline as a level of serum 25-OH vitamin D less than 20 ng/mL (1,2). The Endocrine Society went on to further define vitamin D insufficiency as a level between 21 and 29 ng/mL (2). 1. IOM ([place] of Medicine). 2010. Dietary reference intakes for calcium and D. [place]: The National Academies Press. 2. Nahed MF, Cheryl TENA, Pat JEAN BAPTISTE, et al. Evaluation, treatment, and prevention of vitamin D deficiency: an Endocrine Society clinical practice guideline. JCEM. 2010; 96(1):8151-30. 12/21/2024 2:27 PM EDT 12/21/2024 Narrative [facility] - 12/22/2024 8:08 AM EDT Performed at: [address] [place] [address] [id number] Squirrel Man: Lon Maria PhD, Phone: [phone] Lalitha CHUNG LAB BLOOD ORDERABLES Final Result Performing Organization Address City/[facility]/ZIP Co de Phone Number [facility] 1 * Antibody screen (12/21/2024 2:27 PM EDT) Antibody Screen Negative Negative [facility] 1 12/21/2024 2:27 PM EDT 12/21/2024 Narrative [facility] - 12/22/2024 7:06 AM EDT Performed at: [address] [place] [id number] Squirrel Man: Lon Maria PhD, Phone: [phone] Lalitha CHUNG BLOOD BANK TEST ORDERABLES Final Result Performing Organization Address [facility] Co de Phone Number [facility] 1 * ABO/Rh (12/21/2024 2:27 PM EDT) ABO Grouping O [facility] 1 Rh Type Positive [facility] 1 Comment: Please note: Prior records for this patient's ABO / Rh type are not available for additional verification. 12/21/2024 2:27 PM EDT 12/21/2024 Narrative [facility] - 12/22/2024 7:06 AM EDT Performed at: [address] [place] [address] [id number] Squirrel Man: Lon Maria PhD, Phone: [phone] Lalitha CHUNG BLOOD BANK TEST ORDERABLES Final Result [facility] 1 * Hepatitis B surface antigen (12/21/2024 2:27 PM EDT) [facility] Hep B Surface Ag Negative Negative [facility] 1 12/21/2024 2:27 PM EDT 12/21/2024 Narrative [facility] - 12/22/2024 6:07 AM EDT Performed at: [address] [place] [address] [id number] Squirrel Man: Lon Maria PhD, Phone: [phone] Lalitha CHUNG LAB BLOOD ORDERABLES Final Result Performing Organization Address [facility] Co de Phone Number [facility] 1 * RPR (12/21/2024 2:27 PM EDT) Pathologist [facility] RPR Non Reactive Non Reactive [facility] 1 12/21/2024 2:27 PM EDT 12/21/2024 Narrative [facility] - 12/22/2024 6:07 AM EDT Performed at: [address] [place] [address] [id number] Squirrel Man: Lon Maria PhD, Phone: [phone] Lalitha CHUNG LAB BLOOD ORDERABLES Final Result Performing Organization Address City/[facility]/ZIP Co de Phone Number [facility] 1 * Varicella zoster antibody, IgG (12/21/2024 2:27 PM EDT) [facility] Varicella IgG Non Reactive Non Reactive [facility] 1 Comment: Please note reference interval change A Reactive result is considered evidence of immunity to VZV. Reactive indicates that VZV IgG was detected consistent with previous infection and/or vaccination. A Non Reactive result indicates that VZV IgG was not detected suggesting that immunity has not been acquired. 12/21/2024 2:27 PM EDT 12/21/2024 [facility] - 12/22/2024 6:07 AM EDT Performed at: [address] [place] [address] [id number] Squirrel Man: Lon Maria PhD, Phone: [phone] Lalitha CHUNG LAB BLOOD ORDERABLES Final Result Performing Organization Address [facility] de Phone Number [facility] 1 * Panel [id number] (12/21/2024 2:27 PM EDT) [facility] HIV Screen 4th Generation wRfx Non Reactive Non Reactive [facility] 1 Comment: HIV-1/HIV-2 antibodies and HIV-1 p24 antigen were NOT detected. There is no laboratory evidence of HIV infection. HIV Negative 12/21/2024 2:27 PM EDT 12/21/2024 [facility] - 12/22/2024 6:07 AM EDT Performed at: [address] [place] [address] [id number] Squirrel Man: Lon Maria PhD, Phone: [phone] Lalitha CHUNG LAB BLOOD ORDERABLES Final Result Performing Organization Address [facility] Co de Phone Number [facility] 1 * (ABNORMAL) Rubella Immune Status (12/21/2024 2:27 PM EDT) [facility] Rubella Antibodies, IgG <0.90(L) Immune >0.99 index [facility] 1 Comment: Non-immune <0.90 Equivocal 0.90 - 0.99 Immune >0.99 12/21/2024 2:27 PM EDT 12/21/2024 Narrative [facility] - 12/22/2024 6:07 AM EDT Performed at: [address] [place] [address] [id number] Squirrel Man: Lon Maria PhD, Phone: [phone] Lalitha CHUNG LAB BLOOD ORDERABLES Final Result [facility] * DHEA-sulfate, serum (12/21/2024 2:27 PM EDT) Pathologist [facility] DHEA Sulfate 179.0 84.8 - 378.0 ug/dL [facility] 1 12/21/2024 2:27 PM EDT 12/21/2024 Narrative [facility] - 12/22/2024 6:07 AM EDT Performed at: [address] [place] [address] [id number] Squirrel Man: Lon Maria PhD, Phone: [phone] us Lalitha CHUNG LAB BLOOD ORDERABLES Final Result Performing Organization Address City/[facility]/ZIP Co de Phone Number [facility] 1 * Hemoglobin A1c (12/21/2024 2:27 PM EDT) Hemoglobin A1C 5.4 4.8 - 5.6 % [facility] 1 Comment: Prediabetes: 5.7 - 6.4 Diabetes: >6.4 Glycemic control for adults with diabetes: <7.0 12/21/2024 2:27 PM EDT 12/21/2024 Narrative [facility] - 12/22/2024 6:07 AM EDT Performed at: [address] [place] [address] [id number] Squirrel Man: Lon Maria PhD, Phone: [phone] Lalitha CHUNG LAB BLOOD ORDERABLES Final Result Performing Organization Address [facility]/ZIP Co de Phone Number [facility] 1 * Interpretation: (HCV Ab) (12/21/2024 2:27 PM EDT) Pathologist [facility] Interpretation: (HCV Ab) Comment [facility] 1 Comment: Not infected with HCV unless early or acute infection is suspected (which may be delayed in an immunocompromised individual), or other evidence exists to indicate HCV infection. 12/21/2024 2:27 PM EDT 12/21/2024 Narrative [facility] - 12/22/2024 6:07 AM EDT Performed at: [address] [place] [address] [id number] Squirrel Man: Lon Maria PhD, Phone: [phone] Lalitha CHUNG LAB BLOOD ORDERABLES Final Result Performing Organization Address [facility] de Phone Number [facility] 1 * Hepatitis C Ab w/reflex to HCV RNA, QN, PCR (12/21/2024 2:27 PM EDT) [facility] HCV Ab Non Reactive Non Reactive [facility] 1 12/21/2024 2:27 PM EDT 12/21/2024 Narrative [facility] - 12/22/2024 6:07 AM EDT Performed at: [address] [place] [address] [id number] Squirrel Man: Lon Maria PhD, Phone: [phone] Lalitha CHUNG LAB BLOOD ORDERABLES Final Result Performing Organization Address [facility] Co de Phone Number [facility] 1 * (ABNORMAL) CBC (12/21/2024 2:27 PM EDT) [facility] WBC 8.9 3.4 - 10.8 [id number]/uL [facility] [...] 6:07 AM EDT Performed at: 01 - [address] [id number] Squirrel Man: Lon Maria PhD, Phone: [phone] us Lalitha CHUNG LAB BLOOD ORDERABLES Final Result [facility] 1 * (ABNORMAL) Comprehensive metabolic panel (12/21/2024 2:27 PM EDT) Glucose 130(H) 70 - 99 mg/dL [facility] [...] 6:07 AM EDT Performed at: 01 - [facility] [address] [id number] Squirrel Man: Lon Maria PhD, Phone: [phone] us Lalitha CHUNG LAB BLOOD ORDERABLES Final Result Performing Organization Address City/State/[facility] Co de Phone Number [facility] 1 documented in this encounter Visit Diagnoses Not on filedocumented in this encounter Care Teams Medical Records Auditor Relationship Specialty Start Date End Date Pcp, No No Address PCP - General 10/13/24 documented as of this encounter
--- NOTE | 2024-12-25 18:45 | HMH.EDGENADL ---
Discharge Plan Disposition Patient Disposition: Home, Self-Care Prescriptions Prescriptions: New hydrocortisone 1 % cream 1 applic topical BID PRN (Reason: rash) Qty: 28.35 0RF No Action promethazine 12.5 mg tablet 12.5 mg PO Q6H PRN (Reason: nausea and vomiting) Qty: 60 2RF progesterone micronized [Prometrium] 200 mg capsule 200 mg vaginal HS Qty: 30 1RF Rx Instructions: insert vaginally every night at bedtime acetaminophen 500 mg capsule 1,000 mg PO Q6H PRN (Reason: pain) Qty: 80 0RF ibuprofen 800 mg tablet 800 mg PO Q8H PRN (Reason: pain) Qty: 18 0RF Referrals Follow up/Referrals: Parvin Tracey APRN [Primary Care Provider, Family Practice] - See instructions Activity Restrictions/Add. Instructions Additional Instructions/Restrictions: You can take Benadryl to help with the itching. You can also use hydrocortisone cream twice daily as needed to help with inflammation. You can also use Tylenol and ibuprofen to help with symptoms. If you develop any new or worsening symptoms, such as fever, worsening pain/swelling, breakdown of the skin in the area, or if you become concerned for your health for any reason, return to the emergency department for evaluation Clinical Impressions Clinical Impression: Bug bite Instructions Patient Instructions: DI for Skin Abscess Print Language Print Language: Monegasque Discharge ED Provider: Aleksandr Min General Adult HPI General Chief complaint: Skin/Abscess/Foreign Body Stated complaint: insect bite/dizzy/hot feeling Time Seen by Provider: 12/25/24 18:37 Mode of Arrival: Ambulatory Source of Information: Patient Description of Symptoms (Recalled from ER Triage Doc. by RN): pt states while sitting on the toilet at work something bit her. She is unsure what it was. She has a welp to her L posterior thigh about the size of a quarter. pt states it is painful at a 6/10. History of Present Illness HPI narrative: Kashmir Martinez is a 29-year-old female with no significant past medical history who presents to the emergency department for complaints of a bug bite to her left thigh. Patient states that approximately 5 PM, she was sitting on the toilet and felt a sharp pain in her left thigh. She immediately smacked her thigh but did not identify any bugs. She states that she has had some increased redness and swelling to the area since. She states initially she was dizzy and had hot sensation all over, however that resolved shortly after. She states that she went to urgent treatment center was told to come to the emergency department. She states that she is otherwise asymptomatic except for mild pain and swelling to her left lateral thigh. She notes a mild amount of redness in the area. Related Data Previous Rx's ?Medication ?Instructions ?Recorded progesterone micronized 200 mg 200 mg vaginal HS #30 caps 09/27/24 capsule (Prometrium) promethazine 12.5 mg tablet 12.5 mg PO Q6H PRN nausea and 09/27/24 vomiting #60 tabs acetaminophen 500 mg capsule 1,000 mg (2 x 500 mg) PO Q6H PRN 10/11/24 pain #80 caps ibuprofen 800 mg tablet 800 mg PO Q8H PRN pain #18 tabs 10/11/24 hydrocortisone 1 % topical cream 1 applic topical BID PRN rash 12/25/24 #28.35 grams Allergies Allergy/AdvReac Type Severity Reaction Status Date / Time bee venom protein (honey bee) Allergy Anaphylaxis Verified 12/25/24 18:28 [facility] Disclaimer: The information contained in this section may have been updated after the patient was seen, as this information can be updated by other users. Medical History of unknown anatomic location PCOS (polycystic ovarian syndrome) Cryptic tonsil Tonsil stone Serous otitis media Family history of thyroid cancer Anxiety and depression Numbness and tingling of both feet Hypothyroidism Surgical History Hx of dilation and curettage History of hysteroscopy with dilation, polypectomy Status post tonsillectomy Hx of breast surgery left fibroid tumor History of wisdom tooth extraction, class IV edentulism Family History Family/Other Cancer breast Other Family history of diabetes mellitus type II Thyroid cancer Social History Smoking Status: Never smoker alcohol intake: never substance use type: denies use current occupational status: unemployed Travel in the last 8 weeks?: None household members: spouse housing: house marital status: education level: high school service: No care home: No caffeine: Yes special prince needs: No agree to transfusion: No do you feel safe at home: Yes victim of physical abuse: No victim of emotional abuse: No victim of sexual abuse: No would you like helpful sources: No Have you lived/traveled outside [place] in past 30 days?: No Contact w/someone who lives/traveled outside US past 30 days?: No Exposure to someone with infectious disease in past 14 days?: No Do you have a fever (greater than 100.4 F or 38 C)?: No Have you tested positive for COVID-19?: No Exposed to someone with COVID-19 in past 14 days?: No Do you have a sore throat?: No Do you have a cough?: No Do you have any weakness?: No Do you have any diarrhea?: No Are you experiencing any unusual bleeding?: No Do you have any muscle aches/pain?: No Do you have any abdominal pain?: No Are you experiencing loss of taste or smell?: No Other Medical History Have you received the Flu Vaccine for this season: No Have you received the Pneumonia Vaccine: No ROS Obtained: Yes Systems reviewed as appropriate & no additional complaints except as documented Physical Exam General General appearance: alert and in no apparent distress Head Head exam: atraumatic Eye Eye exam: Present normal appearance ENT ENT exam: Present normal external ear exam Neck Neck exam: Present full ROM Chest Chest inspection: Present symmetric chest wall rise Respiratory Respiratory exam: Present normal lung sounds bilaterally; Absent respiratory distress, wheezes or stridor Cardiovascular Cardiovascular exam: Present regular rate and normal rhythm Abdominal Exam Abdominal exam: Absent distention Extremities Exam Extremities exam: Present normal inspection Expanded Lower Extremity Exam Left: Leg image:  1. 3cm rounded area of erythema, swelling, and redness. No retained foreign bodies. Mildly tender Back Exam Back exam: Present normal inspection Neurological Exam Neurological exam: Present alert and oriented X3 Psychiatric Psychiatric exam: Present normal affect Skin Skin exam: Present warm and dry Medical Decision Making Medical Records Screening: Per USPSTF and CDC recommendations, given the prevalence of disease in our region, it is our hospital?s policy to screen for HIV and viral Hepatitis for all patients aged 18 and over and those with ongoing risk factors. Vyan Inquiry Pt receiving controlled substance: No Vital Signs: 12/25/24 18:20 Temperature 98.2 F Temperature Source Oral Pulse Rate [Left] 88 Respiratory Rate 14 Blood Pressure [Right Arm] 129/74 Blood Pressure Mean [Right Arm] 92 Blood Pressure Source [Right Arm] Automatic Cuff Blood Pressure Position [Right Arm] Sitting 02 Sat by Pulse Oximetry 98 Oxygen Delivery Method Room Air Medical Decision Narrative: Kashmir Martinez is a 29-year-old female with no significant past medical history who presents to the emergency department for complaints of a bug bite to her left thigh. Patient states that approximately 5 PM, she was sitting on the toilet and felt a sharp pain in her left thigh. She immediately smacked her thigh but did not identify any bugs. She states that she has had some increased redness and swelling to the area since. She states initially she was dizzy and had hot sensation all over, however that resolved shortly after. She states that she went to urgent treatment center was told to come to the emergency department. She states that she is otherwise asymptomatic except for mild pain and swelling to her left lateral thigh. She notes a mild amount of redness in the area. On arrival, patient is afebrile, hemodynamically stable, in no acute distress, breathing comfortably on room air. Physical exam, stated above, revealed approximately 3 cm round area of swelling and erythema and mild tenderness over the left lateral thigh. No retained foreign bodies are noted. No extension of the erythema distally or proximally. No other wounds are noted. Patient's physical exam is most consistent with an insect bite. It does not appear necrotic and there is low concern for brown recluse or black bite as patient is not having symptoms other than localized swelling and inflammation, which is likely a local inflammatory reaction. No additional workup is indicated at this time. I have no concern for abscess. It does not appear cellulitic. Recommend Benadryl for itching as well as topical hydrocortisone cream. Return precautions were given. All questions were answered. She demonstrated understanding and was in agreement this plan. She was then discharged from the emergency department in stable condition peer Critical Care Critical Care Time Critical Care Time: No
[2024-12-25 19:21] VITALS: BP 130/70; PULSE 90; RESP 16; TEMP 36.7; O2SAT 98
== END 2024-12-25 19:23 | disposition home or self-care (01) ==
PROVIDERS: Emergency Provider Student in an Organized Health Care Education/Training Program; PCP Nurse Practitioner Family
DX: S70.362A Insect bite (nonvenomous), left thigh, initial encounter (principal); R42 Dizziness and giddiness; W57.XXXA Bitten or stung by nonvenomous insect and other nonvenomous arthropods, initial encounter
CPT/HCPCS: 99283